=== PATIENT | female | born 1950 | race African-American/Black ===

== ENCOUNTER 2023-02-25 12:21 | Outpatient (REF) | payer MEDICARE, SELFPAY ==
--- NOTE | ~2023-02-25 | XR_ITS ---
EXAMINATION: XR LUMBOSACRAL SPINE CLINICAL INFORMATION: Lower back pain status-post injury. COMPARISON: None available. TECHNIQUE: AP and lateral views of the lumbar spine and lateral view of the lumbosacral junction. FINDINGS: There is bony demineralization. At L4-L5, there is a 5 mm anterolisthesis. The remaining disc spaces are well-maintained. No acute fracture or spondylolisthesis is seen. There is multi-level mild lumbar spondylosis. The posterior elements are intact. There are aortoiliac atherosclerotic calcifications. XR/XR lumbar spine 2-3V IMPRESSION: 1. There is mild to moderate degenerative disc disease at L4-L5. 2. There is multi-level mild lumbar spondylosis.
--- NOTE | ~2023-02-25 | XR_ITS ---
EXAMINATION: XR HIP, RIGHT CLINICAL INFORMATION: Pain. COMPARISON: None available. TECHNIQUE: AP and frog-leg lateral views of the right hip. FINDINGS: Bones and soft tissues are normal. No fracture. Alignment is anatomic. Hip joint space is maintained. XR/XR hip RT min 2V IMPRESSION: Normal right hip.
--- NOTE | ~2023-02-25 | XR_ITS ---
EXAMINATION: XR WRIST, LEFT CLINICAL INFORMATION: Pain status-post injury. COMPARISON: None available. TECHNIQUE: PA, lateral, and oblique views of the left wrist are submitted, together with a dedicated navicular view. FINDINGS: Bony alignment and mineralization are normal. There is mild osteoarthritic change of the first carpometacarpal joint. No fracture or dislocation is seen. The proximal and distal carpal rows are intact. No focal soft tissue swelling, gas or foreign body is seen. XR/XR wrist LT min 3V IMPRESSION: 1. No fracture or dislocation is seen. 2. There is mild osteoarthritic change of the left first carpometacarpal joint.
== END 2023-02-25 12:22 | disposition home or self-care (01) ==
LOC: HO.XRAY 12:21
PROVIDERS: Visit Provider Emergency Medicine
DX: S69.92XA Unspecified injury of left wrist, hand and finger(s), initial encounter (principal); S79.911A Unspecified injury of right hip, initial encounter; S39.92XA Unspecified injury of lower back, initial encounter
CPT/HCPCS: 72100; 73110; 73502

== ENCOUNTER 2023-07-07 10:13 | Outpatient (REF) | payer BC, MEDICARE, SELFPAY ==
[2023-07-08 01:45] LABS: Alanine Aminotransferase 14 U/L (0-31); Alkaline Phosphatase 94 U/L (39-117); Anion Gap 11 (12-20); Aspartate Amino Transferase 14 U/L (5-31); Bilirubin Total 0.7 mg/dL (0.0-1.0); Blood Urea Nitrogen 15 mg/dL (9-16); Calcium 9.4 mg/dL (8.4-10.2); Carbon Dioxide 27 mmol/L (22-29); Chloride 106 mmol/L (96-108); Estimated Glomerular Filt Rate > 60; Glucose Random 72 mg/dL (60-115); Potassium 3.4 mmol/L (3.3-5.1); Sodium 141 mmol/L (135-145); Total Protein 7.5 g/dL (6.5-8.0)
[2023-07-08 02:02] LABS: TSH reflex Free T4 16.74 uIU/mL (0.32-4.0)
[2023-07-08 03:53] LABS: Free T4 (Free Thyroxine) 0.98 ng/dL (0.71-1.85)
[2023-07-11 01:34] LABS: VITAMIN D (1,25 OH) D3 48 pg/mL; Vit D (1,25-Dihydroxy) Total 48 pg/mL (18-72); Vitamin D (1,25 OH) D2 <8 pg/mL
== END 2023-07-07 10:14 | disposition home or self-care (01) ==
LOC: HO.CHCLDS 10:13
PROVIDERS: Visit Provider Family Medicine
DX: E03.8 Other specified hypothyroidism (principal); E06.3 Autoimmune thyroiditis; R74.8 Abnormal levels of other serum enzymes; E66.9 Obesity, unspecified
CPT/HCPCS: 36415; 80053; 82652; 84439; 84443

== ENCOUNTER 2023-10-07 08:03 | Outpatient (REF) | payer BC, SELFPAY ==
--- NOTE | ~2023-10-07 | XR_ITS ---
EXAMINATION: XR BILATERAL KNEES CLINICAL INFORMATION: Bilateral knee pain. COMPARISON: None available. TECHNIQUE: 3 views each knee. FINDINGS: RIGHT KNEE: Tricompartmental degenerative changes are seen, most marked in the medial compartment which has the most narrowing. Posterior patellar osteophytes are seen. A small joint effusion is present. No chondrocalcinosis, fractures or subluxations. LEFT KNEE: Tricompartmental degenerative changes are seen, most marked in the medial compartment which has the most narrowing. Posterior patellar osteophytes are seen. A small joint effusion is present. No chondrocalcinosis, fractures or subluxations. XR/XR knee LT 3V IMPRESSION: Bilateral tricompartmental degenerative changes, most marked in the medial compartments.
--- NOTE | ~2023-10-07 | XR_ITS ---
EXAMINATION: XR BILATERAL KNEES CLINICAL INFORMATION: Bilateral knee pain. COMPARISON: None available. TECHNIQUE: 3 views each knee. FINDINGS: RIGHT KNEE: Tricompartmental degenerative changes are seen, most marked in the medial compartment which has the most narrowing. Posterior patellar osteophytes are seen. A small joint effusion is present. No chondrocalcinosis, fractures or subluxations. LEFT KNEE: Tricompartmental degenerative changes are seen, most marked in the medial compartment which has the most narrowing. Posterior patellar osteophytes are seen. A small joint effusion is present. No chondrocalcinosis, fractures or subluxations. XR/XR knee RT 3V IMPRESSION: Bilateral tricompartmental degenerative changes, most marked in the medial compartments.
== END 2023-10-07 08:04 | disposition home or self-care (01) ==
LOC: HO.HOSX 08:03
PROVIDERS: Visit Provider Orthopaedic Surgery
DX: M17.0 Bilateral primary osteoarthritis of knee (principal); Z79.899 Other long term (current) drug therapy
CPT/HCPCS: 73562

== ENCOUNTER 2023-10-07 14:46 | Outpatient (AMB) | payer BC, SELFPAY ==
--- NOTE | 2023-10-07 15:04 | MHC.OFFVIS ---
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 The patient describes her right knee pain as sharp and severe in nature, 10/10. Her pain has gotten worse over the last few years in spite of continued non operative treatments. She has done physical therapy for 12 weeks over the last 6 months which aggravated her pain. She has also tried Tylenol and anti-inflammatory medicines which gave her minimal relief. She has had multiple injections. The most recent injection gave her no relief. The patient has difficulty walking even short distances because of her pain. At this point her right knee pain is interfering with her activities of daily living and her ability to sleep well through the night. Allergies acetaminophen [Vicodin] Allergy (Unknown, Verified 10/07/23 15:07) Unknown codeine Allergy (Unknown, Verified 10/07/23 15:07) Unknown hydrocodone [Vicodin] Allergy (Unknown, Verified 10/07/23 15:07) Unknown erythromycin base Allergy (Verified 10/07/23 15:07) Hives Medication List - Last Reconciled 10/08/23 by Harshal Soares MD amlodipine 10 mg PO DAILY aspirin (Adult Aspirin Regimen) 81 mg PO DAILY celecoxib mg PO BID chlorthalidone 25 mg PO QAM citalopram 10 mg PO DAILY glimepiride 2 mg PO DAILY hydrochlorothiazide 25 mg PO DAILY irbesartan 300 mg PO BEDTIME levothyroxine 88 mcg PO DAILY pantoprazole 40 mg PO QAM rosuvastatin 40 mg PO DAILY [facility] Social History (Updated 10/07/23 @ 15:08 by ANNE-MARIE Eason) Patient Tobacco Use Status: Never used Tobacco Current occupational status: employed Current occupation: [employer] Physical Exam Vital Signs: BMI result Body Mass Index 36.3 Const Other: Well-nourished well-developed very friendly female awake alert and oriented x3 in no acute distress Extrem Other: Bilateral lower extremity examination shows good capillary refill, no skin lesions noted, normal sensation light touch Right knee examination shows a minimal effusion, palpable crepitus with range of motion, pain with range of motion, range of motion from -3 degrees to 115 degrees, no instability Results Reviewed Results Reviewed: X-rays of the patient's right knee show end-stage degenerative joint disease with grade 4 [id number] arthritis in the medial compartment, subchondral sclerosis, osteophyte formation, no acute bony abnormalities Assessment & Plan Assessment & Plan (1) Arthritis of right knee: Code(s): M17.11 - Unilateral primary osteoarthritis, right knee Plan Ms. Trevizo presents with progressively worsening bilateral knee pains, right greater than left, due to end-stage degenerative joint disease. I had a lengthy discussion with the patient regarding the treatment options. At this point she has failed continued non operative treatments. The risks and benefits of right total knee replacement surgery were discussed at length with the patient. Patient wishes to proceed with surgery. She will contact my office to pick a surgery date. I will see her back 1 week prior to her surgery to answer any final questions that she might have. Feel free to call me at any time should questions regarding her orthopedic management arise. Thank you very much for asking me to see this very friendly patient. I spent 22 minutes in reviewing the patient's records and imaging studies, seeing the patient and documenting in the medical record. Orders: Orders XR knee LT 3V 10/07/23 M25.562 - Pain in left knee XR knee RT 3V 10/07/23 M25.561 - Pain in right knee Coding Level of Care Code New Pt Level 2 (51342) Diagnoses Arthritis of right knee M17.11
[2023-10-07 15:06] VITALS: BMI 36.3
== END 2023-10-07 15:54 | disposition home or self-care (01) ==
PROVIDERS: PCP Nurse Practitioner Adult Health; Visit Provider Orthopaedic Surgery
DX: M17.11 Unilateral primary osteoarthritis, right knee (principal)
CPT/HCPCS: 99202

== ENCOUNTER 2023-10-10 10:29 | Outpatient (REF) | payer BC, SELFPAY ==
[2023-10-10 14:32] LABS: MANUAL DIFF FLAG NO
[2023-10-10 14:38] LABS: Basophils Percent Auto 0.5 % (0-2); Eosinophils Percent Auto 0.1 % (0-4); Hematocrit 42.3 % (37.0-47.0); Hemoglobin 13.7 g/dl (12.0-16.0); Imm Gran Abs Auto 0.02 X10*3/uL (0.00-0.03); Imm Gran Pct Auto 0.2 % (0.0-0.4); Lymphocytes Absolute Auto 2.3 X10*3/uL (1.2-4.9); Lymphocytes Percent Auto 26.2 % (20-40); Mean Corpuscular HGB Conc 32.4 g/dl (31.0-35.0); Mean Corpuscular Hemoglobin 27.7 pg (27.0-33.0); Mean Corpuscular Volume 85.5 fL (80.0-98.0); Monocytes Absolute Auto 0.7 X10*3/uL (0.1-1.2); Neutrophils Absolute Auto 5.7 x10*3/uL (2.0-8.3); Platelet Count 250 X10*3/uL (160-400); Red Blood Count 4.95 X10*6/uL (4.20-5.50); Red Cell Distribution Width 13.1 % (11.0-16.0); White Blood Count 8.8 X10*3/uL (4.8-10.8)
[2023-10-10 15:20] LABS: TSH reflex Free T4 7.86 uIU/mL (0.32-4.0)
[2023-10-10 15:22] LABS: Alanine Aminotransferase 24 U/L (0-31); Albumin Level 4.4 g/dL (3.5-5.0); Alkaline Phosphatase 107 U/L (39-117); Anion Gap 13 (12-20); Aspartate Amino Transferase 37 U/L (5-31); Bilirubin Total 0.9 mg/dL (0.0-1.0); Blood Urea Nitrogen 21 mg/dL (9-16); Calcium 10.6 mg/dL (8.4-10.2); Carbon Dioxide 34 mmol/L (22-29); Chloride 92 mmol/L (96-108); Estimated Glomerular Filt Rate 40; Glucose Random 115 mg/dL (60-115); Magnesium 2.2 mg/dL (1.6-2.6); Sodium 137 mmol/L (135-145); Total Protein 8.5 g/dL (6.5-8.0)
[2023-10-10 15:24] LABS: Potassium 2.3 mmol/L (3.3-5.1)
[2023-10-10 16:10] LABS: Free T4 (Free Thyroxine) 1.39 ng/dL (0.71-1.85)
== END 2023-10-10 10:30 | disposition home or self-care (01) ==
LOC: HO.CHCLDS 10:29
PROVIDERS: Visit Provider Family Medicine
DX: R23.2 Flushing (principal); R61 Generalized hyperhidrosis
CPT/HCPCS: 36415; 80053; 83735; 84439; 84443; 85025

== ENCOUNTER 2023-10-14 12:51 | Outpatient (REF) | payer BC, SELFPAY ==
[2023-10-14 15:19] LABS: Anion Gap 9 (12-20); Blood Urea Nitrogen 13 mg/dL (9-16); Calcium 10.1 mg/dL (8.4-10.2); Carbon Dioxide 34 mmol/L (22-29); Chloride 97 mmol/L (96-108); Estimated Glomerular Filt Rate 53; Glucose Random 128 mg/dL (60-115); Sodium 137 mmol/L (135-145)
== END 2023-10-14 12:52 | disposition home or self-care (01) ==
LOC: HO.CHCLDS 12:51
PROVIDERS: Visit Provider Family Medicine
DX: E87.6 Hypokalemia (principal)
CPT/HCPCS: 36415; 80048; 83735

== ENCOUNTER → 2023-10-20 11:00 | Outpatient (REF) | payer BC, SELFPAY ==
--- NOTE | 2023-10-20 11:03 | HM_ITS ---
* Total monitoring time 1 day. * Underlying rhythm is sinus. Average ventricular rate 64/Min. Range 45 to 109/Min. * Very rare supraventricular and ventricular ectopy. * No significant pauses or AV blocks. * No patient markers or events in diary. MTDD
== END ==
LOC: HO.CARD 11:00
PROVIDERS: PCP Family Medicine; Visit Provider Family Medicine
DX: R23.2 Flushing (principal); R61 Generalized hyperhidrosis; I49.3 Ventricular premature depolarization
CPT/HCPCS: 93225

== ENCOUNTER → 2023-10-20 11:03 | Outpatient (BNV) | payer BC, SELFPAY | PROVIDERS: PCP Family Medicine; Visit Provider Internal Medicine | DX: I47.10 Supraventricular tachycardia, unspecified (principal) | CPT/HCPCS: 93227 ==

== ENCOUNTER 2023-10-20 11:44 | Outpatient (REF) | payer BC, SELFPAY ==
[2023-10-20 14:32] LABS: Anion Gap 9 (12-20); Blood Urea Nitrogen 14 mg/dL (9-16); Calcium 10.1 mg/dL (8.4-10.2); Carbon Dioxide 30 mmol/L (22-29); Chloride 102 mmol/L (96-108); Estimated Glomerular Filt Rate > 60; Glucose Random 84 mg/dL (60-115); Potassium 3.2 mmol/L (3.3-5.1); Sodium 138 mmol/L (135-145)
== END 2023-10-20 11:45 | disposition home or self-care (01) ==
LOC: HO.CHCLDS 11:44
PROVIDERS: Visit Provider Family Medicine
DX: E87.6 Hypokalemia (principal)
CPT/HCPCS: 36415; 80048

== ENCOUNTER 2023-10-28 15:03 | Outpatient (REF) | payer BC, SELFPAY ==
[2023-10-28 17:28] LABS: Anion Gap 12 (12-20); Blood Urea Nitrogen 17 mg/dL (9-16); Calcium 9.6 mg/dL (8.4-10.2); Carbon Dioxide 24 mmol/L (22-29); Chloride 110 mmol/L (96-108); Estimated Glomerular Filt Rate > 60; Glucose Random 92 mg/dL (60-115); Potassium 3.6 mmol/L (3.3-5.1); Sodium 142 mmol/L (135-145)
== END 2023-10-28 15:04 | disposition home or self-care (01) ==
LOC: HO.CHCLDS 15:03
PROVIDERS: Visit Provider Family Medicine
DX: E87.6 Hypokalemia (principal)
CPT/HCPCS: 36415; 80048

== ENCOUNTER 2023-12-23 10:37 | Outpatient (AMB) | payer BC, SELFPAY ==
--- NOTE | 2023-12-23 10:56 | A.OFFVIS_ITS ---
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 Intake Note: NPV Collaborating Supervising Physician Required: No Allergies acetaminophen [Vicodin] Allergy (Unknown, Verified 12/23/23 10:58) Unknown codeine Allergy (Unknown, Verified 12/23/23 10:58) Unknown hydrocodone [Vicodin] Allergy (Unknown, Verified 12/23/23 10:58) Unknown erythromycin base Allergy (Verified 12/23/23 10:58) Hives Medication List - Last Reconciled 12/23/23 by Abraham Avila MD amlodipine 10 mg PO DAILY aspirin (Adult Aspirin Regimen) 81 mg PO DAILY celecoxib mg PO BID citalopram 10 mg PO DAILY glimepiride 2 mg PO DAILY hydrochlorothiazide 25 mg PO DAILY irbesartan 300 mg PO BEDTIME levothyroxine 88 mcg PO DAILY pantoprazole 40 mg PO QAM rosuvastatin 40 mg PO DAILY HPI HPI Comments History of Present Illness Details Autumn has been referred for evaluation of possibly regular rhythm. It seems that when her PCP auscultated her, thought to have irregular rhythm but nothing on the EKG. Patient herself does not have any symptoms from cardiac standpoint. No angina or shortness of breath or palpitations or anything along those lines. She does have diabetes and hypertension. However, denies any history of coronary artery disease or myocardial infarction or any cardiomyopathy. [facility] Medical History (Updated 12/23/23 @ 11:25 by Abraham Avila MD) Other and unspecified hyperlipidemia Essential hypertension Type 2 diabetes mellitus with unspecified complications Surgical History (Updated 12/23/23 @ 11:00 by Adilia Reed) Hx laparoscopic cholecystectomy Hx of appendectomy Family History (Updated 12/23/23 @ 10:59 by Adilia Reed) Mother CHF (congestive heart failure) Father No problems noted. Social History Patient Tobacco Use Status: Never used Tobacco Current occupational status: employed Current occupation: [employer] Const Denies chills, Denies daytime sleepiness, Denies fatigue, Denies fever(s), Denies frequent falls, Denies night sweats, Denies snoring, Denies weakness, Denies weight gain and Denies weight loss Eyes Denies loss of vision ENT Denies dizziness and Denies hearing loss Card Denies chest pain, Denies chest pain with activity, Denies syncope, Denies rapid heart rate, Denies edema, Denies claudication, Denies leg edema, Denies lightheadedness, Denies palpitations, Denies dyspnea, Denies dyspnea on exertion and Denies orthopnea Resp Denies cough, Denies excessive phlegm production, Denies dyspnea, Denies dyspnea on exertion, Denies snoring and Denies wheezing GI Denies abdominal pain, Denies hematochezia, Denies change in bowel habits, Denies change in stool character, Denies heartburn, Denies nausea and Denies vomiting Denies hematuria, Denies urinary frequency and Denies dysuria Musc Denies arthralgias, Denies muscle weakness, Denies numbness and Denies tingling Skin/Breast Denies nail changes and Denies rash Neuro Denies Abnormal speech present, Denies dizziness, Denies syncope, Denies frequent falls, Denies loss of vision, Denies memory loss, Denies numbness, Denies tingling and Denies weakness Psych Denies depression and Denies memory loss Endo Denies fatigue and Denies palpitations Aller/Immun Denies wheezing Physical Exam Vital Signs: Last Vital Signs Pulse 58 12/23/23 10:58 BP 148/76 H 12/23/23 10:58 BMI result Body Mass Index 33.3 Const General: comfortable and no acute distress Orientation/consciousness: patient oriented x3 HEENT Other: Unremarkable Head: Yes normal to inspection Neck Neck: Yes normal visual inspection Chest Chest palpation & inspection: normal inspection of the chest Resp Auscultation: clear to auscultation bilaterally Cardio Palpation: normal PMI Heart sounds: S1 normal heart sound present, S2 normal heart sound present, no gallops, no murmurs and no rubs GI Palpation (GI): Soft to palpation Back/Spine/Pelvis Other: unremarkable Skin General skin exam: no rashes or lesions noted Neuro General: patient oriented x3 Speech: No Abnormal speech present Extrem General: Yes normal to inspection Psych Mental Status: mental status grossly normal Office Procedures EKG Details: EKG with sinus bradycardia at 58/Min; inferior as well as lateral T inversions. Similar to recent PCP EKG [id number], Complete Assessment & Plan Assessment & Plan (1) Abnormal EKG: Code(s): R94.31 - Abnormal electrocardiogram [ECG] [EKG] (2) Type 2 diabetes mellitus with unspecified complications: Code(s): E11.8 - Type 2 diabetes mellitus with unspecified complications (3) Essential hypertension: Code(s): I10 - Essential (primary) hypertension (4) Other and unspecified hyperlipidemia: Code(s): E78.5 - Hyperlipidemia, unspecified Plan EKG findings could be related to hypertension, but cannot exclude ischemia. Considering her risk factors and EKG findings, we will proceed with further workup including echocardiogram and stress test. Based on findings, we can plan further care. Orders: Orders CA echo stress exercise Today R07.2 - Precordial pain, R94.31 - Abnormal electrocardiogram [ECG] [EKG] CA echo transthoracic complete Today I25.10 - Atherosclerotic heart disease of [place] coronary artery without angina pectoris, R94.31 - Abnormal electrocardiogram [ECG] [EKG] Coding Level of Care Code New Pt Level 4 (98740) Diagnoses Abnormal EKG R94.31 Type 2 diabetes mellitus with unspecified complications E11.8 Essential hypertension I10 Other and unspecified hyperlipidemia E78.5 CPT Codes EKG - CPT: [id number], Complete ([id number])
[2023-12-23 10:58] VITALS: BP 148/76; PULSE 58; BMI 33.3
== END 2023-12-23 11:24 | disposition home or self-care (01) ==
PROVIDERS: PCP Family Medicine; Visit Provider Internal Medicine
DX: I10 Essential (primary) hypertension (principal); R00.1 Bradycardia, unspecified; R94.31 Abnormal electrocardiogram [ECG] [EKG]; E11.8 Type 2 diabetes mellitus with unspecified complications; E78.5 Hyperlipidemia, unspecified
CPT/HCPCS: 93010; 99204

== ENCOUNTER → 2023-12-23 10:37 | Outpatient (BNVA) | payer BC, SELFPAY | PROVIDERS: PCP Family Medicine; Visit Provider Internal Medicine | DX: R94.31 Abnormal electrocardiogram [ECG] [EKG] (principal); I10 Essential (primary) hypertension; E78.5 Hyperlipidemia, unspecified; E11.8 Type 2 diabetes mellitus with unspecified complications | CPT/HCPCS: 93005 ==

== ENCOUNTER → 2023-12-29 09:05 | Outpatient (BNVA) | payer BC, SELFPAY | PROVIDERS: PCP Nurse Practitioner Adult Health; Visit Provider Orthopaedic Surgery ==

== ENCOUNTER 2024-01-05 10:47 | Outpatient (REF) | payer BC, SELFPAY ==
[2024-01-05 11:08] LABS: MANUAL DIFF FLAG NO
[2024-01-05 11:12] LABS: Basophils Absolute Auto 0.1 X10*3/uL (0.0-0.2); Basophils Percent Auto 0.7 % (0-2); Eosinophils Absolute Auto 0.1 X10*3/uL (0.0-0.4); Eosinophils Percent Auto 1.6 % (0-4); Hematocrit 42.2 % (37.0-47.0); Hemoglobin 13.8 g/dl (12.0-16.0); Imm Gran Abs Auto 0.02 X10*3/uL (0.00-0.03); Imm Gran Pct Auto 0.3 % (0.0-0.4); Lymphocytes Absolute Auto 2.5 X10*3/uL (1.2-4.9); Lymphocytes Percent Auto 35.8 % (20-40); Mean Corpuscular HGB Conc 32.7 g/dl (31.0-35.0); Mean Corpuscular Hemoglobin 27.8 pg (27.0-33.0); Mean Corpuscular Volume 84.9 fL (80.0-98.0); Mean Platelet Volume 10.3 fL (9.4-12.3); Monocytes Absolute Auto 0.5 X10*3/uL (0.1-1.2); Monocytes Percent Auto 6.6 % (2-11); Neutrophils Absolute Auto 3.8 x10*3/uL (2.0-8.3); Platelet Count 238 X10*3/uL (160-400); Red Blood Count 4.97 X10*6/uL (4.20-5.50); Red Cell Distribution Width 14.6 % (11.0-16.0); White Blood Count 6.9 X10*3/uL (4.8-10.8)
--- NOTE | 2024-01-05 11:12 | ECG_ITS ---
Test Reason : r07.2 preop Blood Pressure : / mmHG Vent. Rate : 058 BPM Atrial Rate : 058 BPM P-R Int : 160 ms QRS Dur : 088 ms QT Int : 418 ms P-R-T Axes : 042 025 013 degrees QTc Int : 410 ms Sinus bradycardia Nonspecific T wave abnormality Abnormal ECG No previous ECGs available Referred By: Noelle Sargent Electronically Signed By:Lonnie Rushing
[2024-01-05 11:21] LABS: Prothrombin Time 11.9 SEC (11.1-13.3)
[2024-01-05 12:55] LABS: Anion Gap 10 (12-20); Blood Urea Nitrogen 16 mg/dL (9-16); Calcium 10.1 mg/dL (8.4-10.2); Carbon Dioxide 28 mmol/L (22-29); Chloride 106 mmol/L (96-108); Estimated Glomerular Filt Rate > 60; Glucose Random 110 mg/dL (60-115); Potassium 3.6 mmol/L (3.3-5.1); Sodium 140 mmol/L (135-145)
== END 2024-01-05 10:48 | disposition home or self-care (01) ==
LOC: HO.LAB 10:47
PROVIDERS: PCP Family Medicine; Visit Provider Family Medicine
DX: Z01.810 Encounter for preprocedural cardiovascular examination (principal)
CPT/HCPCS: 36415; 80048; 83735; 85025; 85610; 93005

== ENCOUNTER → 2024-01-05 11:12 | Outpatient (BNV) | payer BC, SELFPAY | PROVIDERS: PCP Family Medicine; Visit Provider Internal Medicine Cardiovascular Disease | DX: R00.1 Bradycardia, unspecified (principal); R94.31 Abnormal electrocardiogram [ECG] [EKG] | CPT/HCPCS: 93010 ==

== ENCOUNTER → 2024-01-09 14:03 | Outpatient (REF) | payer BC, SELFPAY ==
--- NOTE | 2024-01-09 14:08 | CA_ITS ---
Transthoracic Echocardiogram Patient (Last, First, Middle): Autumn Trevizo, Gender: Female Date of : 1950 Age: 73 Procedure Date: 01/09/2024 Procedure Type: Transthoracic Echocardiogram Location: OP Height: 160.02 cm Weight: 88. kg BSA: 1.91 m2 Heart Rate: bpm BP: 128 / 80 mmHg Assembler Seat: Referring MD: Abraham Avila MD Symptoms: I25.10 - Atherosclerotic heart disease of [place] coronary artery without... Study Quality: Good ECG Rhythm: Sinus Conclusions: - Normal left ventricular size and systolic function. The visually estimated ejection fraction is between 55-60%. - E/E prime ratio is between 8 and 15 consistent with indeterminate filling pressures. Borderline LVH. - Normal right ventricular cavity size and systolic function. Findings Left Ventricle Normal left ventricular size and systolic function. The visually estimated ejection fraction is between 55-60%. There is no evidence of regional wall motion abnormalities. Diastolic function is indeterminate on the basis of available data. Spectral Doppler is indicative of an impaired relaxation filling pattern. E/E prime ratio is between 8 and 15 consistent with indeterminate filling pressures. Borderline LVH. Right Ventricle Normal right ventricular cavity size and systolic function. Atria The left atrium is mildly dilated. Aortic Valve There is a normal trileaflet aortic valve. There is mild aortic valve stenosis. There is no aortic valve regurgitation. Mitral Valve The mitral valve appears normal. There is trace mitral valve regurgitation. There is no mitral valve stenosis. Pulmonic Valve Normal pulmonic valve structure and function. There is no pulmonic valve regurgitation. Tricuspid Valve Normal tricuspid valve structure. There is trace tricuspid valve regurgitation. Normal right atrial pressure. There is no evidence of pulmonary hypertension. Great Vessels All visible segments of the aorta are normal in size. The visualized portions of the pulmonary artery and branches are normal. Pericardium/Pleural There is no evidence of pericardial effusion. Prior Study Comparison No prior study available for comparison. Measurements 2D Linear Measurements IVSd: 1.13 0.6-0.9/0.6-1.0 cm LVIDd: 4.38 3.9-5.3/4.2-5.9 cm LVIDd Index: 2.29 2.4-3.2/2.2-3.1 cm/m2 LVIDs: 2.51 2.0-3.6 cm LVPWd: 1.09 0.7-1.1 cm Ao Root: 2.70 2.1-3.5 cm LA Diam: 4.00 2.7-3.8/3.0-4.0 cm LAIDs Index: 2.09 1.5-2.3 cm/m2 LV Mass: 211.61 67-162/88-224 g LV Mass Index: 110.79 43-95/49-115 g/m2 LVOT Diam: 2.00 3.0+(-)1.3 cm 2D Systolic Function EF 4C: 63.50 >55% EF 2C: 70.20 >55% EF BiP: 66.90 >55% Mitral Valve MV Pk E: 0.76 MV PK A: 1.14 MV Decel Time: 215.00 E/A: 0.70 E'Lateral: 13.90 E'Medial: 6.31 E/E' Med: 12.10 E/E' Lat: 5.50 PHT: 63.00 MVA PHT: 3.49 Decel [place]: 3.55 Aortic Valve AoV Pk Gold: 2.15 AoV Mn Gold: 1.28 AoV VTI: 0.47 AoV Pk Grad: 18.00 Aov Mn Grad: 8.00 BARRY Cont.VTI: 1.90 LVOT LVOT Pk Gold: 1.04 LVOT Mn Gold: 0.61 LVOT VTI: 0.28 LVOT Pk Grad: 4.00 LVOT Mn Grad: 2.00 LVOT Diam: 2.00 LVOT Area: 3.14 Diastolic Function MV Pk E: 0.76 MV Pk A: 1.14 E/A: 0.70 E'Medial: 6.31 E/E' Med: 12.10 E' Laterial: 13.90 E/E' Lat: 5.50 Right Ventricle TAPSE (mm): 30.00 TVS' Gold: 16.00 Tricuspid Valve TR Pk Gold: 2.53 TR Pk Grad: 26.00 RA Press: 3.00 RVSP: 29.00 Great Vessels Aorta Ao Root-2D: 2.70 2.0-3.7 cm Ao Asc: 2.80 2.1-3.4 cm Pulmonary Valve PV Pk Gold: 1.06 Peak PV Grad: 4.00 Updated in Other Vendor System with Status of Final Lonnie Rushing MD electronically signed on 01/11/2024 1:58:00 PM with status of Final
== END ==
LOC: HO.CARD 14:03
PROVIDERS: PCP Family Medicine; Visit Provider Internal Medicine
DX: I25.10 Atherosclerotic heart disease of native coronary artery without angina pectoris (principal); R94.31 Abnormal electrocardiogram [ECG] [EKG]
CPT/HCPCS: 93306

== ENCOUNTER → 2024-01-09 14:08 | Outpatient (BNV) | payer BC, SELFPAY | PROVIDERS: PCP Family Medicine; Visit Provider Internal Medicine Cardiovascular Disease | DX: I25.10 Atherosclerotic heart disease of native coronary artery without angina pectoris (principal) | CPT/HCPCS: 93306 ==

== ENCOUNTER → 2024-01-14 11:02 | Outpatient (REF) | payer BC, SELFPAY ==
--- NOTE | 2024-01-14 11:04 | CA_ITS ---
Acquisition Time: 2024-01-14 11:00:36 Total Exercise Time: 00:05:00 Test Indications: ABN EKG, CP Medications: SEE H Protocol: IMER Max HR: 160 BPM 108% of Pred: 148 BPM Max BP: 174/078 mmHG Max Work Load: 7.0 METS Exercise stress test exercise 5 min achieving 109% MPHR *85% met by 1 min 40 sec), with mild to moderat SOB, no chest discomfort, with isolated PVCs, with normotensive response to exercise, without EKG changes. Echo images obtained by tech at rest and immedaitely post peak exercise. Definity contrast used .Test revierwed with Dr Matos Referred By: Abraham Avila Overread By: Katrin Leslie
== END ==
LOC: HO.CARD 11:02
PROVIDERS: PCP Family Medicine; Visit Provider Internal Medicine
DX: R07.2 Precordial pain (principal); R94.31 Abnormal electrocardiogram [ECG] [EKG]
CPT/HCPCS: 93350; Q9957

== ENCOUNTER → 2024-01-14 11:04 | Outpatient (BNV) | payer BC, SELFPAY | PROVIDERS: PCP Family Medicine; Visit Provider Nurse Practitioner | DX: R06.02 Shortness of breath (principal); R94.31 Abnormal electrocardiogram [ECG] [EKG] | CPT/HCPCS: 93016; 93018; 93350; 93352 ==

== ENCOUNTER 2024-01-21 12:29 | Outpatient (AMB) | payer BC, SELFPAY ==
--- NOTE | 2024-01-21 12:37 | A.OFFVIS_ITS ---
Intake Intake Visit Reasons: Preop-RT TKA 01/26/24 Intake Note: Autumn a 72 year old female presents today with complaints of bilateral knee pains, right greater than left. The patient describes her right knee pain as sharp and severe in nature, 10/10. Her pain has gotten worse over the last few years in spite of continued non operative treatments. She has done physical therapy for 12 weeks over the last 6 months which aggravated her pain. She has also tried Tylenol and anti-inflammatory medicines which gave her minimal relief. She has had multiple injections. The most recent injection gave her no relief. The patient has difficulty walking even short distances because of her pain. At this point her right knee pain is interfering with her activities of daily living and her ability to sleep well through the night. Allergies codeine Allergy (Intermediate, Verified 01/16/24 10:28) Hives erythromycin base Allergy (Intermediate, Verified 01/15/24 13:39) Hives hydrocodone [Vicodin] Allergy (Intermediate, Verified 01/16/24 10:28) Hives latex Allergy (Intermediate, Verified 01/16/24 10:28) dermatitis flare-ups Medication List - Last Reconciled 01/21/24 by Harshal Soares MD amlodipine 10 mg PO QAM aspirin (Adult Aspirin Regimen) 81 mg PO QAM celecoxib 200 mg PO BID citalopram 10 mg PO QAM glimepiride 2 mg PO QAM irbesartan 300 mg PO BEDTIME levothyroxine 100 mcg PO QAM pantoprazole 40 mg PO QAM rosuvastatin 40 mg PO QAM walker Folding front wheeled walker [facility] Medical History Arthritis Anxiety Family history of sickle cell crisis Low serum potassium Hypothyroid Other and unspecified hyperlipidemia Essential hypertension Type 2 diabetes mellitus with unspecified complications Surgical History Hx of oral surgery Hx of left cataract extraction H/O colonoscopy Hx laparoscopic cholecystectomy Hx of appendectomy Family History Mother CHF (congestive heart failure) Father No problems noted. Social History Are you a primary home health care case manager to a significant other at home: No Do you presently have visiting nurse or other home services: No Patient Tobacco Use Status: Never used Tobacco Current occupational status: employed Current occupation: [employer] Physical Exam Const Other: Well-nourished well-developed very friendly female awake alert and oriented x3 in no acute distress Extrem Other: Bilateral lower extremity examination shows good capillary refill, no skin lesions noted, normal sensation light touch Right knee examination shows a minimal effusion, palpable crepitus with range of motion, pain with range of motion, range of motion from -3 degrees to 115 degrees, no instability Results Reviewed Results Reviewed: X-rays of the patient's right knee show end-stage degenerative joint disease with grade 4 [id number] arthritis, subchondral sclerosis, osteophyte formation, no acute bony abnormalities Assessment & Plan Assessment & Plan (1) Arthritis of right knee: Code(s): M17.11 - Unilateral primary osteoarthritis, right knee Plan Ms. Trevizo presents with progressively worsening right knee pain due to end-stage degenerative joint disease. I had a lengthy discussion with the patient regarding the treatment options. At this point she has failed continued non operative treatments. The risks and benefits of right total knee replacement surgery were discussed at length with the patient. The patient wishes to proceed with surgery. volunteer services coordinator will be consulted following her surgery for home physical therapy and nursing. The patient will follow-up as instructed. Feel free to call me at any time should questions regarding her orthopedic management arise. I spent 22 minutes in reviewing the patient's records and imaging studies, seeing the patient and documenting in the medical record. Coding Level of Care Code Est Pt Level 2 (09937) Diagnoses Arthritis of right knee M17.11
== END 2024-01-21 13:02 | disposition home or self-care (01) ==
PROVIDERS: PCP Nurse Practitioner Adult Health; Visit Provider Orthopaedic Surgery
DX: M17.11 Unilateral primary osteoarthritis, right knee (principal)
CPT/HCPCS: 99024

== ENCOUNTER → 2024-01-21 12:29 | Outpatient (BNVA) | payer BC, SELFPAY | PROVIDERS: PCP Nurse Practitioner Adult Health; Visit Provider Orthopaedic Surgery ==

== ENCOUNTER 2024-01-21 13:08 | Outpatient (AMB) | payer BC, SELFPAY ==
[2024-01-21 13:34] VITALS: BP 130/70; PULSE 60; BMI 34.4
--- NOTE | 2024-01-21 13:34 | MHC.OFFVIS ---
Intake Vital Signs 01/21/24 13:34 Height 5 ft 4 in Weight 200 lb 9.93 oz BMI 34.4 BP 130/70 Blood Pressure Location Lt brachial Position Sitting Pulse 60 Pulse Source Pulse Oximeter Intake Visit Reasons: Pre-op/Rt TKA 01/25 Dr. Soares/Post echo, stress echo Intake Note: pt its lianet for a pre-op/post echo. stress echo. pt states that she its doing fine. Tool/Die Maker Required: No Accompanied by: Self / Same As Patient Allergies codeine Allergy (Intermediate, Verified 01/16/24 10:28) Hives erythromycin base Allergy (Intermediate, Verified 01/15/24 13:39) Hives hydrocodone [Vicodin] Allergy (Intermediate, Verified 01/16/24 10:28) Hives latex Allergy (Intermediate, Verified 01/16/24 10:28) dermatitis flare-ups Medication List - Last Reconciled 01/21/24 by Katrin Leslie NP amlodipine 10 mg PO QAM aspirin (Adult Aspirin Regimen) 81 mg PO QAM citalopram 10 mg PO QAM glimepiride 2 mg PO QAM irbesartan 300 mg PO BEDTIME levothyroxine 100 mcg PO QAM pantoprazole 40 mg PO QAM rosuvastatin 40 mg PO QAM walker Folding front wheeled walker [facility] Medical History Arthritis Anxiety Family history of sickle cell crisis Low serum potassium Hypothyroid Other and unspecified hyperlipidemia Essential hypertension Type 2 diabetes mellitus with unspecified complications Surgical History Hx of oral surgery Hx of left cataract extraction H/O colonoscopy Hx laparoscopic cholecystectomy Hx of appendectomy Family History Mother CHF (congestive heart failure) Father No problems noted. Social History Are you a primary human services care specialist to a significant other at home: No Do you presently have visiting nurse or other home services: No Patient Tobacco Use Status: Never used Tobacco Current occupational status: employed Current occupation: [employer] Review of Systems Const Denies chills, Denies fatigue, Denies fever(s), Denies frequent falls, Denies weakness, Denies weight gain and Denies weight loss ENT Denies dizziness Card Denies chest pain, Denies leg edema, Denies lightheadedness, Denies palpitations, Denies dyspnea and Denies dyspnea on exertion Resp Denies cough, Denies dyspnea and Denies dyspnea on exertion GI Denies hematochezia Musc Denies abnormal gait, Denies muscle weakness, Denies numbness, Denies radiating pain into limb and Denies tingling Neuro Denies abnormal gait, Denies dizziness, Denies frequent falls, Denies numbness, Denies tingling and Denies weakness Endo Denies fatigue and Denies palpitations Physical Exam Vital Signs: Last Vital Signs Pulse 60 01/21/24 13:34 BP 130/70 01/21/24 13:34 BMI result Body Mass Index 34.4 Assessment & Plan Assessment & Plan (1) Abnormal EKG: Code(s): R94.31 - Abnormal electrocardiogram [ECG] [EKG] (2) Essential hypertension: Code(s): I10 - Essential (primary) hypertension Plan EKG findings could be related to HTN disease. Echocardiogram showed borderline LVH, EF of 55-60%. Stress echo showed no evidence of ischemia, exercise induced diastolic dysfunction, or pulmonary hypertension. HTN is worked through the care of PCP. Good blood pressure control, exercise, weight loss, and heart healthy diet discussed to reduce production of LVH. Low cardiac risk for upcoming total knee arthroplasty. Coding Level of Care Code Est Pt Level 3 (31739) Diagnoses Abnormal EKG R94.31 Essential hypertension I10
== END 2024-01-21 14:05 | disposition home or self-care (01) ==
PROVIDERS: PCP Family Medicine; Visit Provider Nurse Practitioner
DX: R94.31 Abnormal electrocardiogram [ECG] [EKG] (principal); I10 Essential (primary) hypertension
CPT/HCPCS: 99213

== ENCOUNTER 2024-01-26 05:50 | Inpatient (IN) | payer BC, SELFPAY ==
[2024-01-16 10:33] VITALS: BP 142/60; PULSE 67; RESP 20; O2SAT 97; BMI 34.3
--- NOTE | 2024-01-16 10:47 | P.CONAN_ITS ---
Documented by User: Jessica Bryant NP 01/23/24 09:06 HPI - Anesthesia Eval Consult details Narrative: 73yo F for Right Knee Replacement Total Cardiac cleared: EKG findings could be related to HTN disease. Echocardiogram showed borderline LVH, EF of 55-60%. Stress echo showed no evidence of ischemia, exercise induced diastolic dysfunction, or pulmonary hypertension. HTN is worked through the care of PCP. Good blood pressure control, exercise, weight loss, and heart healthy diet discussed to reduce production of LVH. Low cardiac risk for upcoming total knee arthroplasty. PCP cleared No recent illness No CP/SOB Previously low K causing dizziness, weakness. HCTZ d/c'd, K normalized and symptoms resolved. Work up with cardiology OK. DM. FBS ~ 100 GERD. PPI controls PMFSH Active Problems Active Problems: All Active Problems (Updated 01/16/24 @ 10:24 by Peggy Medina RN) Abnormal EKG (Acute) Arthritis of right knee (Acute) Right knee pain (Acute) Left knee pain (Acute) Other and unspecified hyperlipidemia (Acute) Essential hypertension (Acute) Type 2 diabetes mellitus with unspecified complications (Acute) Past Medical History Medical History Arthritis Anxiety Family history of sickle cell crisis Low serum potassium Hypothyroid Other and unspecified hyperlipidemia Essential hypertension Type 2 diabetes mellitus with unspecified complications Family History Family History Mother CHF (congestive heart failure) Father No problems noted. Family history of problems with anesthesia: No Surgical History Surgical History Hx of oral surgery Hx of left cataract extraction H/O colonoscopy Hx laparoscopic cholecystectomy Hx of appendectomy History of Problems with Anesthesia: No Social History Social History Are you a primary healthcare account manager to a significant other at home: No Do you presently have visiting nurse or other home services: No Patient Tobacco Use Status: Never used Tobacco Use of substances other than those prescribed or required for medical reasons: No Have you been hit, kicked, punched, or otherwise hurt by someone within the past year? If so, by whom?: No Are you DNR?: No Advance Directives Information Provided: Yes (as above noted) Advance Directives on File: No Recently lost weight without trying: No Eating poorly because of decreased appetite: No Nutrition Risks: No Nutritional Risk Poor oral hygiene: No (multiple dental implants) Current occupational status: employed Current occupation: [employer] Allergies Allergy/AdvReac Type Severity Reaction Status Date / Time codeine Allergy Intermediate Hives Verified 01/16/24 10:28 erythromycin base Allergy Intermediate Hives Verified 01/15/24 13:39 hydrocodone [Vicodin] Allergy Intermediate Hives Verified 01/16/24 10:28 latex Allergy Intermediate dermatitis Verified 01/16/24 10:28 flare-ups Home Medications Medication Instructions Recorded Confirmed Last Taken Type amlodipine 10 mg tablet 10 mg PO QAM 10/07/23 01/21/24 01/26/24 History aspirin 81 mg tablet,delayed 81 mg PO QAM 10/07/23 01/21/24 12/28/23 History release (Adult Aspirin Regimen) citalopram 10 mg tablet 10 mg PO QAM 10/07/23 01/21/24 01/24/24 History glimepiride 2 mg tablet 2 mg PO QAM 10/07/23 01/21/24 01/24/24 History irbesartan 300 mg tablet 300 mg PO BEDTIME 10/07/23 01/21/24 01/24/24 History pantoprazole 40 mg tablet,delayed 40 mg PO QAM 10/07/23 01/21/24 01/26/24 History release rosuvastatin 40 mg tablet 40 mg PO QAM 10/07/23 01/21/24 01/24/24 History levothyroxine 100 mcg tablet 100 mcg PO QAM 01/15/24 01/21/24 01/24/24 History Exam Height,Weight and Vital Signs: Height 5 ft 4 in Weight 90.718 kg Last Vital Signs Pulse 67 01/16/24 10:33 Resp 20 01/16/24 10:33 BP 142/60 H 01/16/24 10:33 Pulse Ox 97 01/16/24 10:33 O2 Del Method Room Air 01/16/24 10:33 Pertinent Lab Results Pertinent Lab Results: Laboratory Tests 01/05/24 11:06 WBC 6.9 Hgb 13.8 Hct 42.2 Plt Count 238 Sodium 140 Potassium 3.6 Chloride 106 Carbon Dioxide 28 BUN 16 Creatinine 0.75 Narrative Narrative: EKG 12/2023 Vent. Rate : 058 BPM Atrial Rate : 058 BPM P-R Int : 160 ms QRS Dur : 088 ms QT Int : 418 ms P-R-T Axes : 042 025 013 degrees QTc Int : 410 ms Sinus bradycardia Nonspecific T wave abnormality Abnormal ECG No previous ECGs available ECHO 12/2023 Conclusions: - Normal left ventricular size and systolic function. The visually estimated ejection fraction is between 55-60%. - E/E prime ratio is between 8 and 15 consistent with indeterminate filling pressures. Borderline LVH. - Normal right ventricular cavity size and systolic function. Stress ECHO 12/2023 Conclusion : No evidence of myocardial ischemia with no evidence of exercise induced diastolic dysfunction or pulmonary hypertension. Airway Mallampati Class: III TM Dist: >3cm Neck ROM: Full Loose/Missing/Broken Teeth: Yes (Full dental implants uppper and lower) Heart: RRR Lungs: CTAB Assessment and Plan Assessment Anesthesia Assessment: Anesthesia Plan Discussed and PAT Visit Final Anesthetic Review Family History of Problems with Anesthesia: No History of Problems with Anesthesia: No Documented by User: Peace Dial MD 01/26/24 07:54 PMFSH Past Medical History Medical History Arthritis Anxiety Family history of sickle cell crisis Low serum potassium Hypothyroid Other and unspecified hyperlipidemia Essential hypertension Type 2 diabetes mellitus with unspecified complications Family History Family History Mother CHF (congestive heart failure) Father No problems noted. Surgical History Surgical History Hx of oral surgery Hx of left cataract extraction H/O colonoscopy Hx laparoscopic cholecystectomy Hx of appendectomy Social History Social History Are you a primary healthcare account manager to a significant other at home: No Do you presently have visiting nurse or other home services: No Patient Tobacco Use Status: Never used Tobacco Use of substances other than those prescribed or required for medical reasons: No Have you been hit, kicked, punched, or otherwise hurt by someone within the past year? If so, by whom?: No Are you DNR?: No Advance Directives Information Provided: Yes (as above noted) Advance Directives on File: No Recently lost weight without trying: No Eating poorly because of decreased appetite: No Nutrition Risks: No Nutritional Risk Poor oral hygiene: No (multiple dental implants) Current occupational status: employed Current occupation: [employer] Allergies Allergy/AdvReac Type Severity Reaction Status Date / Time codeine Allergy Intermediate Hives Verified 01/16/24 10:28 erythromycin base Allergy Intermediate Hives Verified 01/15/24 13:39 hydrocodone [Vicodin] Allergy Intermediate Hives Verified 01/16/24 10:28 latex Allergy Intermediate dermatitis Verified 01/16/24 10:28 flare-ups Home Medications Medication Instructions Recorded Confirmed Last Taken Type amlodipine 10 mg tablet 10 mg PO QAM 10/07/23 01/21/24 01/26/24 History aspirin 81 mg tablet,delayed 81 mg PO QAM 10/07/23 01/21/24 12/28/23 History release (Adult Aspirin Regimen) citalopram 10 mg tablet 10 mg PO QAM 10/07/23 01/21/24 01/24/24 History glimepiride 2 mg tablet 2 mg PO QAM 10/07/23 01/21/24 01/24/24 History irbesartan 300 mg tablet 300 mg PO BEDTIME 10/07/23 01/21/24 01/24/24 History pantoprazole 40 mg tablet,delayed 40 mg PO QAM 10/07/23 01/21/24 01/26/24 History release rosuvastatin 40 mg tablet 40 mg PO QAM 10/07/23 01/21/24 01/24/24 History levothyroxine 100 mcg tablet 100 mcg PO QAM 01/15/24 01/21/24 01/24/24 History Assessment and Plan Assessment Anesthesia Assessment: Chart Reviewed Final Anesthetic Review NPO: Yes ASA Class: II Final Preanesthetic Review: No Changes in Pt Med Stat, Meds/Allgs Chart Reviewed, Consent Obtained/Reviewed and Anes Risks/Benef Reviewed Patient Risk: Intermediate Procedure Risk: Intermediate Anesthetic Plan Anesthetic Plan: MAC:, Spinal and Regional Block Disposition: Standard PACU
[2024-01-16 13:27] LABS: MRSA Nasal PCR NEGATIVE (Negative); SA Nasal PCR NEGATIVE (Negative)
[2024-01-26] VITALS (16 sets, daily range): BP systolic 137–170; BP diastolic 64–81; PULSE 63–80; RESP 14–19; TEMP 36–36.6; O2SAT 90–99; BMI 34.4
[2024-01-26 07:18] LABS: Glucose, Whole Blood 145 mg/dL (60-115)
[2024-01-26] MEDS: Lactated Ringers 1,000 ML 100 ML IVCONT ×2 (07:33→17:14)
--- NOTE | 2024-01-26 08:45 | PC.NURSE ---
patient tolerated nerve block well resting vss resp easy and regular sleeping easily arousable
[2024-01-26] MEDS: ceFAZolin Sodium/Dextrose,Iso 2 GM/50 ML PIGGYBACK IV ×2 (09:36→18:14)
[2024-01-26] MEDS: Acetaminophen 1,000 MG/100 ML PIGGYBACK 400 MG IV (09:50)
--- NOTE | 2024-01-26 10:41 | PHA.MEDREC ---
Pharmacy Consult ? Medication Reconciliation Pharmacy has completed the medication reconciliation. Reviewed med rec done by nursing
--- NOTE | 2024-01-26 12:13 | PM.OP ---
Brief Operative Note Date of Service: 01/26/24 Pre-op diagnosis: Right knee degenerative joint disease Post-op diagnosis: same Procedure: Right total knee arthroplasty Implants: [place] [employer] cemented posterior stabilized total knee arthroplasty with a femoral component size 4 right, tibial component size 3, polyethylene liner size 3 with 10 mm of thickness, an asymmetric patellar component size 29 with 9 mm of thickness Surgeon: Harshal Soares MD Anesthesia: regional and spinal Was an Senior Accounting Clerk used for this Procedure?: Yes Senior Accounting Clerk: Alysa Bailey Estimated blood loss (mL): 200 Pathology: other (Bony fragments from the right femur, tibia and patella) Condition: stable Disposition: PACU
--- NOTE | 2024-01-26 12:14 | P.OP_ITS ---
Operative Note Operative Note Date of Service: 01/26/24 Narrative: After the patient was identified as Autumn Trevizo and her right knee was initialed by myself the patient was brought to the holding area where a right leg nerve block was performed by the anesthesiologist in routine fashion. The patient was then brought to the operating room where conscious sedation and spinal anesthesia were performed by the anesthesiologist in routine fashion. The patient was given 2 g of IV Ancef preoperatively for infection prophylaxis. The patient's right lower extremity was prepped and draped in sterile fashion. A formal time-out was completed. The patient's right knee was placed onto a small bump to produce 30? of knee flexion during exposure. A #10 scalpel blade was used to make a midline incision extending 1 handbreadth proximal and distal to the patella. A second #10 scalpel blade was used to dissect the subcutaneous tissues down to the extensor mechanism. The subcutaneous flaps were maintained as thick as possible. A medial parapatellar arthrotomy was then performed using a #10 scalpel blade. The arthrotomy was begun just medial to the patellar tendon. The arthrotomy was continued 1 cm medial to the patella and then 5 mm into the medial aspect of the quadriceps tendon. The infrapatellar fat pad was partially excised to help with exposure. The soft tissue retinaculum was raised one-half of the way around the medial aspect of the proximal tibia. The patella was everted and the knee was flexed to 90?. There was no injury to the patellar tendon or its insertion onto the tibial tubercle. A drill bit was introduced into the distal aspect of the femur with a starting point 1 cm anterior to the origin of the posterior cruciate ligament. The intramedullary alignment zohra was put into place. The distal alignment guide was set for a 5 degree valgus cut. The distal cutting block was put into place and was held with 4 pins. The intramedullary alignment zohra was removed. Soft tissues were retracted in the distal femoral cut was made using a sagittal saw. The distal aspect of the femur measured to be a size 4 right component. Two drill holes were placed into the distal aspect of the femur marking 3? of external rotation. The distal cutting block was impacted into place and was held with 2 pins. Soft tissues were retracted and the 4 distal femoral cuts were made using a sagittal saw. Final notching and drilling of the distal aspect of the femur were performed in routine fashion. The trial femoral component was impacted into place. The knee was taken through a full range of motion. The patella tracked well. The patella was everted and the knee was flexed to 90?. The trial component was removed and our attention was directed to the proximal tibia. The medial and lateral menisci were removed using a #10 scalpel blade. A small rim of the medial meniscus was left intact to help prevent injury to the medial collateral ligament. A drill bit was then introduced into the proximal tibia with a starting point midway from medial to lateral and one-third of the way posteriorly. The intramedullary alignment zohra was put into place. The proximal tibial cutting guide was placed over the alignment zohra in line with the 2nd toe. The guide was held in place using 3 pins. The intramedullary alignment zohra was removed. Soft tissues were retracted and the proximal tibial cut was made using a sagittal saw. The proximal tibia measured to be a size 3 component. The tibial tray was put into place with a 10 mm liner. The femoral component was impacted into place. The knee was taken through a full range of motion. There was full flexion and full extension. There was no instability with varus or valgus stress testing with the knee in flexion or extension. The patella tracked well with no medially directed force. The rotation of the tibial tray was marked using electrocautery with the knee in extension. The patella was everted and the knee was flexed to 90?. All trial components were removed. The tibial tray was placed onto the proximal tibia in line with the electrocautery raf. The tray was held in place using 3 pins. Final broaching of the proximal tibia was performed in routine fashion. The trial liner and trial femoral component were put into place. The knee was brought into extension and our attention was directed to the patella. The patella measured 25 mm in thickness. The patellar resection guide was set for a 10 mm resection. Soft tissues were retracted and the patella cut was made using a sagittal saw. The remaining patella measured 15 mm in thickness. The undersurface of the patella was measu red to be a size 29 asymmetric component. Three drill holes were placed into the undersurface of the patella in routine fashion. The trial component was put into place. The knee was taken through a full range of motion. The patella tracked well. The patella was everted and the knee was flexed to 90?. All trial components were removed. The knee was once again brought into extension and placed onto a small bump. The knee joint was irrigated with copious amounts of normal saline solution via pulse lavage while the cement was mixed. The patella was everted and the knee was flexed to 90?. A small amount of cement was placed along the posterior aspects of the tibial and femoral components. Cement was then pressurized into the proximal tibia. The tibial component was impacted into place. Any excess cement was removed. The polyethylene liner was then impacted into place. Cement was then pressurized into the distal aspect of the femur. A small amount of cement was placed into the intramedullary canal to help reduce bleeding. The femoral component was impacted into place. Any excess cement was removed. The knee was then brought into extension. Cement was pressurized into the undersurface of the patella. The patellar component was put into place and was held with a patella clamp. Any excess cement was removed. Once the cement had hardened the patellar clamp was removed. The knee was taken through a full range of motion. There was full flexion and extension. There was no instability with varus or valgus stress testing with the knee in flexion or extension. The patella tracked well with no medially directed force. The knee joint was irrigated with copious amounts of normal saline solution via pulse lavage. Any significant bleeding vessels were coagulated. The patient's right knee was placed onto a small bump. The arthrotomy was closed with #2 Ethibond [id number] interrupted suture as well as #1 Vicryl [id number] interrupted suture. The wound was once again irrigated. The subcutaneous tissues were closed with 0 Vicryl and 2-0 Vicryl interrupted sutures. The skin was closed with skin saundra. Dry sterile dressing and Spencer bandages were placed over the patient's right knee. The patient was awake and alert. The patient was transferred to the recovery room in stable condition.
--- NOTE | 2024-01-26 12:39 | PHA.MEDREC ---
Pharmacy Consult ? Medication Reconciliation Pharmacy has reviewed the medication reconciliation.
[2024-01-26] MEDS: ondansetron HCL 4 MG/2 ML VIAL IVPUSH (14:49)
[2024-01-26] MEDS: HYDROmorphone HCl 0.5 MG/0.5 ML SYRINGE IVPUSH (14:57)
[2024-01-26] MEDS: methocarbamoL 500 MG TABLET PO (15:03)
[2024-01-26] MEDS: amLODIPine Besylate 10 MG TABLET PO (17:12)
[2024-01-26] MEDS: oxyCODONE HCl Immed Release 5 MG TABLET PO (17:13)
--- NOTE | 2024-01-26 17:39 | P.CONHOSP_ITS ---
History of Present Illness Data of Consult Service Date: 01/26/24 Requesting physician: Alysa Bailey Primary Care Provider: Noelle Sargent MD HPI Reason for consult: Medical H and P 73-year-old female with history of controlled type 2 diabetes, hypertension, hypothyroidism, GERD, mood disorder admitted to orthopedic surgery for management of osteoarthritis of the right knee s/p TKA with consult placed hospitalist service for medical management. She reports last hemoglobin A1c was less than 7.0%. She denies any alcohol use, illicit drug use, or cigarette smoking. She has no complaints at this time. Reports pain is well-controlled at this moment. Review of Systems Review of Systems: General: No fevers, malaise, unintentional weight loss HEENT: No blurred vision, diplopia. No sore throat, nasal congestion, rhinorrhea, sinus pain, ear pain Cardiovascular: No chest pain, palpitations, or leg edema Respiratory: No shortness of breath, wheezing, cough GI: No abdominal pain, nausea, vomiting, diarrhea, constipation, melena, hematochezia : No dysuria, hematuria, increased urinary frequency, decreased urinary output MSK: No myalgia, back pain Neuro: No headaches, weakness, paresthesias Skin: No rashes or lesions PMFSH Medical History Arthritis Anxiety Family history of sickle cell crisis Low serum potassium Hypothyroid Other and unspecified hyperlipidemia Essential hypertension Type 2 diabetes mellitus with unspecified complications Family History Mother CHF (congestive heart failure) Father No problems noted. Surgical History Hx of oral surgery Hx of left cataract extraction H/O colonoscopy Hx laparoscopic cholecystectomy Hx of appendectomy Social History Are you a primary home care associate to a significant other at home: No Do you presently have visiting nurse or other home services: No Patient Tobacco Use Status: Never used Tobacco Use of substances other than those prescribed or required for medical reasons: No Have you been hit, kicked, punched, or otherwise hurt by someone within the past year? If so, by whom?: No Are you DNR?: No Advance Directives Information Provided: Yes (as above noted) Advance Directives on File: No Recently lost weight without trying: No Eating poorly because of decreased appetite: No Nutrition Risks: No Nutritional Risk Poor oral hygiene: No (multiple dental implants) Current occupational status: employed Current occupation: [employer] Allergies Allergy/AdvReac Type Severity Reaction Status Date / Time codeine Allergy Intermediate Hives Verified 01/16/24 10:28 erythromycin base Allergy Intermediate Hives Verified 01/15/24 13:39 hydrocodone [Vicodin] Allergy Intermediate Hives Verified 01/16/24 10:28 latex Allergy Intermediate dermatitis Verified 01/16/24 10:28 flare-ups Active Medications: Current Medications Acetaminophen (Acetaminophen 325 Mg Tablet) 650 mg PO Q6H PRN PRN Reason: Pain, Mild (Pain Scale 1-3) Amlodipine Besylate (Amlodipine Besylate 10 Mg Tablet) 10 mg PO DAILY [facility]; Protocol Last Admin: 01/26/24 17:12 Dose: 10 mg Aspirin (Aspirin 325 Mg Tablet) 325 mg PO BID [facility] Atorvastatin Calcium (Atorvastatin Calcium 80 Mg Tablet) 80 mg PO DAILY [facility] Celecoxib (Celecoxib 200 Mg Capsule) 200 mg PO BID [facility] Docusate Sodium (Docusate Sodium 100 Mg Capsule) 100 mg PO BID [facility] Escitalopram Oxalate (Escitalopram Oxalate 5 Mg Tablet) 5 mg PO DAILY [facility] Gabapentin (Gabapentin 100 Mg Capsule) 100 mg PO BEDTIME [facility] Glipizide (Glipizide 5 Mg Tablet) 5 mg PO DAILY [facility] Hydromorphone HCl (Hydromorphone Hcl 0.5 Mg/0.5 Ml Syringe) 0.25 mg IVPUSH Q4H PRN; Protocol PRN Reason: Pain, Severe (Pain Scale 7-10) Hydromorphone HCl (Hydromorphone Hcl 0.5 Mg/0.5 Ml Syringe) 0.5 mg IVPUSH Q4H PRN; Protocol PRN Reason: Pain, Severe (Pain Scale 7-10) Last Admin: 01/26/24 14:57 Dose: 0.5 mg Lactated Ringer's (Lr) 1,000 mls @ 100 mls/hr IVCONT .Q10H [facility] Last Admin: 01/26/24 17:14 Dose: 100 mls/hr Cefazolin Sodium/Dextrose (Ancef) 2 gm in 50 mls @ 100 mls/hr IV Q8H [facility] Stop: 01/27/24 01:59 Lactated Ringer's (Lr) 1,000 mls @ 100 mls/hr IVCONT .Q10H [facility] Last Admin: 01/26/24 17:19 Dose: Not Given Levothyroxine Sodium (Levothyroxine Sodium 100 Mcg Tablet) 100 mcg PO DAILY [facility] Methocarbamol (Methocarbamol 500 Mg Tablet) 500 mg PO TID [facility] Last Admin: 01/26/24 17:22 Dose: Not Given Omeprazole (Omeprazole 20 Mg Capsule.Dr) 20 mg PO DAILY [facility] Ondansetron HCl (Ondansetron Hcl 4 Mg/2 Ml Vial) 4 mg IVPUSH Q8H PRN PRN Reason: Nausea and Vomiting Oxycodone HCl (Oxycodone Hcl Immed Release 5 Mg Tablet) 5 mg PO Q4H PRN PRN Reason: Pain, Moderate(Pain Scale 4-6) Last Admin: 01/26/24 17:13 Dose: 5 mg Oxycodone HCl (Oxycodone Hcl Immed Release 5 Mg Tablet) 10 mg PO Q4H PRN PRN Reason: Pain, Moderate(Pain Scale 4-6) Oxycodone HCl (Oxycodone Hcl Er 10 Mg Tab.Er.12h) 10 mg PO BID [facility] Sodium Chloride (0.9 % Sodium Chloride Flush 3 Ml Syringe) 3 ml IVFLUSH QSHIFT [facility] Valsartan (Valsartan 160 Mg Tablet) 160 mg PO BEDTIME [facility] Home Medications Medication Instructions Recorded Confirmed Last Taken Type amlodipine 10 mg tablet 10 mg PO DAILY 10/07/23 01/26/24 01/26/24 History aspirin 81 mg tablet,delayed 81 mg PO DAILY 10/07/23 01/26/24 12/28/23 History release (Adult Aspirin Regimen) citalopram 10 mg tablet 10 mg PO DAILY 10/07/23 01/26/24 01/24/24 History glimepiride 2 mg tablet 2 mg PO DAILY 10/07/23 01/26/24 01/24/24 History irbesartan 300 mg tablet 300 mg PO BEDTIME 10/07/23 01/21/24 01/24/24 History pantoprazole 40 mg tablet,delayed 40 mg PO DAILY@0630 11/01/26/24 01/26/24 History release rosuvastatin 40 mg tablet 40 mg PO DAILY 10/07/23 01/26/24 01/24/24 History levothyroxine 100 mcg tablet 100 mcg PO DAILY@0600 01/15/24 01/26/24 01/24/24 History Physical Exam Vital Signs and Narrative: Vital Signs: Last Vital Signs Temp 97.8 F 01/26/24 16:49 Pulse 78 01/26/24 16:49 Resp 18 01/26/24 16:49 BP 170/77 H 01/26/24 16:49 Pulse Ox 94 01/26/24 16:49 O2 Del Method Room Air 01/26/24 16:49 O2 Flow Rate 2 01/26/24 16:00 BMI result Body Mass Index 34.3 Constitutional - Awake and Alert, No apparent distress Eyes - PERRLA, EOMI Cardiovascular - S1S2, RRR, No edema Respiratory - Normal lung expansion, Normal respiratory effort, No respiratory distress, CTA bilaterally Gastrointestinal - NT / ND; +BS; No rebound or guarding Extremities - no calf tenderness bilaterally, no swelling Skin - Warm/Dry Neurological - Alert & oriented x3 Psychological - Appropriate affect Results Labs Labs: Laboratory Results - last 24 hr 01/26/24 07:10 POC Glucose 145 H Assessment and Plan (1) Arthritis of right knee: Status: Acute Plan 73-year-old female with history of controlled type 2 diabetes, hypertension, hypothyroidism, GERD, mood disorder admitted to orthopedic surgery for management of osteoarthritis of the right knee s/p TKA with consult placed hospitalist service for medical management. #OA R Knee s/p R TKA -plan per ortho surgery #Non insulin dependent type 2 diabetes- controlled -poc glucose, diabetic diet -humalog on ss #HTN -bp elevated from pain, improved on exam -resume antihypertensives am #Hypthyroidism -continue synthroid #GERD -continue ppi Thank you for allowing me to participate in this consult. Signing off at this time. Please do not hesitate to call for further questions.
[2024-01-26 17:50] LABS: Glucose, Whole Blood 204 mg/dL (60-115)
[2024-01-26] MEDS: Aspirin 325 MG TABLET PO (19:02)
[2024-01-26 20:16] LABS: Glucose, Whole Blood 216 mg/dL (60-115)
[2024-01-26] MEDS: Docusate Sodium 100 MG CAPSULE PO (22:00)
[2024-01-26] MEDS: Gabapentin 100 MG CAPSULE PO (22:01)
[2024-01-26] MEDS: Celecoxib 200 MG CAPSULE PO (22:01)
[2024-01-26] MEDS: Valsartan 160 MG TABLET PO (22:04)
[2024-01-27] MEDS: ceFAZolin Sodium/Dextrose,Iso 2 GM/50 ML PIGGYBACK IV (02:03)
[2024-01-27] MEDS: Lactated Ringers 1,000 ML 100 ML IVCONT (02:06)
[2024-01-27 03:51] VITALS: BP 131/63; PULSE 62; RESP 18; TEMP 36; O2SAT 96
[2024-01-27 06:16] LABS: MANUAL DIFF FLAG NO
[2024-01-27 06:31] LABS: Basophils Percent Auto 0.1 % (0-2); Hematocrit 32.6 % (37.0-47.0); Hemoglobin 10.6 g/dl (12.0-16.0); Imm Gran Abs Auto 0.08 X10*3/uL (0.00-0.03); Imm Gran Pct Auto 0.6 % (0.0-0.4); Lymphocytes Absolute Auto 1.5 X10*3/uL (1.2-4.9); Lymphocytes Percent Auto 11.2 % (20-40); Mean Corpuscular HGB Conc 32.5 g/dl (31.0-35.0); Mean Corpuscular Hemoglobin 27.7 pg (27.0-33.0); Mean Corpuscular Volume 85.3 fL (80.0-98.0); Mean Platelet Volume 11.1 fL (9.4-12.3); Monocytes Percent Auto 7.7 % (2-11); Neutrophils Absolute Auto 10.7 x10*3/uL (2.0-8.3); Neutrophils Percent Auto 80.4 % (45-73); Platelet Count 215 X10*3/uL (160-400); Red Blood Count 3.82 X10*6/uL (4.20-5.50); Red Cell Distribution Width 14.2 % (11.0-16.0); White Blood Count 13.3 X10*3/uL (4.8-10.8)
[2024-01-27 06:42] LABS: Anion Gap 9 (12-20); Blood Urea Nitrogen 13 mg/dL (9-16); Calcium 9.1 mg/dL (8.4-10.2); Carbon Dioxide 28 mmol/L (22-29); Chloride 105 mmol/L (96-108); Creatinine Clr Calc Pharmacy 67.7; Estimated Glomerular Filt Rate > 60; Glucose Fasting 163 mg/dL (60-99); Potassium 3.3 mmol/L (3.3-5.1); Sodium 139 mmol/L (135-145)
[2024-01-27 07:47] VITALS: BP 150/72; PULSE 61; RESP 18; TEMP 36.1; O2SAT 100
[2024-01-27 08:15] LABS: Glucose, Whole Blood 149 mg/dL (60-115)
[2024-01-27] MEDS: Acetaminophen 325 MG TABLET 650 MG PO (08:26)
[2024-01-27] MEDS: Aspirin 325 MG TABLET PO (08:27)
[2024-01-27] MEDS: amLODIPine Besylate 10 MG TABLET PO (08:27)
[2024-01-27] MEDS: methocarbamoL 500 MG TABLET PO (08:27)
[2024-01-27] MEDS: Celecoxib 200 MG CAPSULE PO (08:27)
[2024-01-27] MEDS: Escitalopram Oxalate 5 MG TABLET PO (08:27)
[2024-01-27] MEDS: Omeprazole 20 MG CAPSULE.DR PO (08:27)
[2024-01-27] MEDS: glipiZIDE 5 MG TABLET PO (08:27)
[2024-01-27] MEDS: Levothyroxine Sodium 100 MCG TABLET PO (08:28)
[2024-01-27] MEDS: Atorvastatin Calcium 80 MG TABLET PO (08:28)
[2024-01-27] MEDS: 0.9 % Sodium Chloride Flush 3 ML SYRINGE IVFLUSH (08:28)
[2024-01-27] MEDS: Docusate Sodium 100 MG CAPSULE PO (08:28)
--- NOTE | 2024-01-27 08:55 | MHC.CM.PN ---
Addendum entered by Brooklyn Rojo RN 01/27/24 09:43: Patient medically cleared for dc home self care. at bedside to transport. Original Note: PATIENT IS FROM HOME W/ . FUNCTIONALLY INDEPENDENT. NO SERVICES. DM SUPPLIES THROUGH [employer]. PCP BHARAT BOO HCP - PT COMPLETED HCP NAMING AGENTS 1) MICHELLE ALCALA [phone] 2) DTR ELIZABETH KUMAR [phone] DP: PT EVAL PENDING. GOAL IS HOME W/ SERVICES. PREFERRED AGENCY IS [facility]. REFERRAL ENTERED, AWAITING RESPONSE. TO TRANSPORT HOME. CM WILL CONTINUE TO FOLLOW.
--- NOTE | 2024-01-27 09:00 | P.DS_ITS ---
DS: Providers Provider Date of Service: 01/27/24 Date of admission: 01/26/24 05:50 Primary care physician: Noelle Sargent MD Consults: 01/26/24 16:26 Consult to Hospitalist Routine Comment: Consulting Provider: Hospitalist Reason For Exam: Routine medical management DMII DS: Diagnosis Discharge Diagnosis (1) Arthritis of right knee: Status: Acute DS: Summary Hospital Course Hospital Course: The patient underwent a successful right total knee arthroplasty, they were transferred to PACU and then to the floor to recover. During their stay, their vitals were stable, afebrile at 97.0. Labs were unremarkable, H/H 10.6/32.6. POD 1 they were started on Aspirin 325mg po bid for DVT ppx, they also received Physical Therapy services. Prior to discharge, their dressing was clean dry and intact, and the plan was to be discharged home with VNA services. Time Attestation Discharge Coordination Time: discharge time of ____ minutes Quality: Safe Use of Opioids Does Pt have an Active Cancer Diagnosis on the Problem List?: No Quality: Stroke Does the patient have a stroke diagnosis?: No Physical Exam Vital Signs: Vital Signs: Last Vital Signs Temp 97 F 01/27/24 07:47 Pulse 61 01/27/24 07:47 Resp 18 01/27/24 07:47 BP 150/72 H 01/27/24 07:47 Pulse Ox 100 01/27/24 07:47 O2 Del Method Room Air 01/27/24 07:47 O2 Flow Rate 2 01/26/24 16:00 BMI result Body Mass Index 34.4 Const: General: cooperative, healthy appearing and no acute distress Resp: Effort & Inspection: normal respiratory effort and able to speak in complete sentences Cardio: Rate: regular rate Peripheral pulses: Peripheral pulses 2+ throughout GI: Palpation (GI): Soft to palpation Skin: Lesions: no lesions Rashes: no rashes Extrem: Other: right knee dressing is c/d/i. Able to dorsi/plantar flex. Calf is supple and nontender. Sensation intact. Pedal pulse intact. DS: Data Data Completed and Pending Pending studies at discharge: Pending at discharge 01/26/24 10:16 Surgical [PTH] Routine Labs on day of discharge: Laboratory Results - last 24 hr 01/26/24 01/26/24 01/27/24 16:51 20:12 05:37 WBC 13.3 H RBC 3.82 L D Hgb 10.6 L D Hct 32.6 L D MCV 85.3 MCH 27.7 MCHC 32.5 RDW 14.2 Plt Count 215 MPV 11.1 Immature Gran % (Auto) 0.6 H Neut % (Auto) 80.4 H Lymph % (Auto) 11.2 L [place] % (Auto) 7.7 Eos % (Auto) 0.0 Baso % (Auto) 0.1 Lymph # (Auto) 1.5 [place] # (Auto) 1.0 Eos # (Auto) 0.0 Baso # (Auto) 0.0 Abs Immat Gran (auto) 0.08 H Absolute Neuts (auto) 10.7 H Absolute Nucleated RBC 0.000 Nucleated RBC % (auto) 0.0 Sodium 139 Potassium 3.3 Chloride 105 Carbon Dioxide 28 Anion Gap 9 L BUN 13 Creatinine 0.82 Estim Creat Clear Calc 67.7 Estimated GFR > 60 POC Glucose 204 H 216 H Fasting Glucose 163 H Calcium 9.1 D 01/27/24 08:09 WBC RBC Hgb Hct MCV MCH MCHC RDW Plt Count MPV Immature Gran % (Auto) Neut % (Auto) Lymph % (Auto) [place] % (Auto) Eos % (Auto) Baso % (Auto) Lymph # (Auto) [place] # (Auto) Eos # (Auto) Baso # (Auto) Abs Immat Gran (auto) Absolute Neuts (auto) Absolute Nucleated RBC Nucleated RBC % (auto) Sodium Potassium Chloride Carbon Dioxide Anion Gap BUN Creatinine Estim Creat Clear Calc Estimated GFR POC Glucose 149 H Fasting Glucose Calcium Discharge Plan Discharge Anticipated Discharge Date/Time: 01/27/24 15:55 Patient Disposition: Home Health Service Discharge Diagnosis: s/p RTKA Referrals: Alysa Bailey PA-C [[facility] [employer]] - 02/12/24 1:15 pm Discharge Medications: New methocarbamol 500 mg Tablet 500 mg PO TID 7 Days Qty: 21 0RF acetaminophen 325 mg Tablet 650 mg PO Q6H PRN (Reason: Pain, Mild (Pain Scale 1-3)) 30 Days Qty: 240 0RF aspirin 325 mg Tablet 325 mg PO BID 42 Days Qty: 84 0RF celecoxib 200 mg Capsule 200 mg PO BID 30 Days Qty: 60 0RF gabapentin 100 mg Capsule 100 mg PO BEDTIME 7 Days Qty: 7 0RF docusate sodium 100 mg Capsule 100 mg PO BID 30 Days Qty: 60 0RF oxycodone 5 mg tablet 5 mg PO Q4H PRN (Reason: pain (scale score 4-6)) 7 Days Qty: 42 0RF Rx Instructions: Partial Fill upon patient request. Continued (DME) walker Misc See Rx Instructions .ROUTE .MEDSUPPLY Qty: 1 0RF Rx Instructions: Folding front wheeled walker levothyroxine 100 mcg tablet 100 mcg PO DAILY@0600 pantoprazole 40 mg tablet,delayed release (DR/EC) 40 mg PO DAILY@0630 citalopram 10 mg tablet 10 mg PO DAILY amlodipine 10 mg tablet 10 mg PO DAILY glimepiride 2 mg tablet 2 mg PO DAILY irbesartan 300 mg tablet 300 mg PO BEDTIME rosuvastatin 40 mg tablet 40 mg PO DAILY Discontinued aspirin [Adult Aspirin Regimen] 81 mg tablet,delayed release (DR/EC) 81 mg PO DAILY Discharge Orders: Discharge Order (Routine); Ordered 01/27/24 Ordered By: Alysa Bailey Diet: Advance to usual diet Activity on Discharge: Use cane or walker Stand Alone Forms: Patient Portal Discharge page Care Plan Goals: restore fxn to rt knee Health Concerns: none Plan of Treatment: Physical Therapy for ROM 0-120, quad strength, gait training. Use walker for ambulation Limit stair climbing, No shower, No tub bath, No driving Continue anticoagulant Keep Aquacel dressing clean, dry and intact. Follow up with orthopedics in 2 weeks Assessment: stable fo d/c
--- NOTE | 2024-01-27 09:02 | W.MHC.F2F ---
Service Date Service Date: 01/27/24 Encounter Date of encounter: 01/27/24 Reasons for Services Signs and symptoms assessed: s/p RTKA. Pt. is considered homebound due to recent surgery. Unable to drive, poor balance, poor gait mechanics. Reason for physical therapy: home safety and mobility, therapeutic exercises, restore joint function, gait/transfer training, assess need for DME and ADL training Homebound: Leaving the home is medically contraindicated at this time without the asist of a device and/or another person due th the listed conditions above and below. Reason homebound: unsteady gait / fall risk, leg weakness, pain with ambulation, pain with transfers, poor balance / fall risk and unable to drive Certification: Based on the above findings, I certify that this patient is confined to the home and needs intermittent retirement care, physical therapy and/or speech therapy, or continues to need occupational therapy. The patient is under my care, and I have initiated the establishment of the plan of care. The patient will be followed by a physician who will periodically review the plan of care. Time Spent With Patient Time: Total time managing care of this patient today ____ minutes.
--- NOTE | 2024-01-27 09:54 | MHC.CM.PN ---
Addendum entered by Brooklyn Rojo RN 01/27/24 10:54: PT rec home w/ services. Patient is medically cleared for dc. [facility] does not service [facility]. [facility] has accepted patient for SOC 01/28, ortho PA aware and agreeable. Original Note: PATIENT IS FROM HOME W/ . FUNCTIONALLY INDEPENDENT. NO SERVICES. DM SUPPLIES THROUGH [employer]. PCP BHARAT BOO HCP - PT COMPLETED HCP NAMING AGENTS 1) MICHELLE ALCALA [phone] 2) DTR ELIZABETH KUMAR [phone] DP: PT EVAL PENDING. GOAL IS HOME W/ SERVICES. PREFERRED AGENCY IS [facility]. REFERRAL ENTERED, AWAITING RESPONSE. TO TRANSPORT HOME. CM WILL CONTINUE TO FOLLOW.
--- NOTE | 2024-01-27 14:03 | HO.POSTANES ---
Post Anesthesia Evaluation Post Anesthesia Evaluation Date of Service: 01/27/24 Vital Signs: Vital Signs Temp Pulse Resp BP Pulse Ox O2 Del Method 01/27/24 07:47 97 F 61 18 150/72 H 100 Room Air 01/27/24 03:51 96.8 F 62 18 131/63 96 Room Air Anesthesia: Spinal and Nerve Block Mental Status: Awake Pain Control: Satisfactory Nausea/Vomiting: None Hydration: Adequate Anesthesia-Related Issues: No Anes. Related Issues
== END 2024-01-27 12:55 | disposition home health service (06) | DRG 302 ==
LOC: HO.SSSA 06:00 → HO.S3 14:54
PROVIDERS: Physician Assistant; Admitting Provider Orthopaedic Surgery; PCP Family Medicine; Visit Provider Orthopaedic Surgery
PROC: 0SRC0J9 Replacement of Right Knee Joint with Synthetic Substitute, Cemented, Open Approach (ICD-10-PCS; CPT 27447; principal; 2024-01-26 08:40)
DX: M17.11 Unilateral primary osteoarthritis, right knee (principal); E11.9 Type 2 diabetes mellitus without complications; I10 Essential (primary) hypertension; E03.9 Hypothyroidism, unspecified; K21.9 Gastro-esophageal reflux disease without esophagitis; G89.18 Other acute postprocedural pain; Z79.84 Long term (current) use of oral hypoglycemic drugs; Z79.890 Hormone replacement therapy; Z79.899 Other long term (current) drug therapy
CPT/HCPCS: 36415; 80048; 82947; 85025; 86850; 86900; 86901; 87640; 87641; 88305; 88311; 97110; 97116; 97161; C1776; J0131; J0665; J0690; J1100; J1170; J1885; J2250; J2405; J2704; J3370; J7120

== ENCOUNTER → 2024-01-26 05:50 | Outpatient (BNV) | payer BC, SELFPAY | PROVIDERS: Admitting Provider Orthopaedic Surgery; PCP Family Medicine; Visit Provider Physician Assistant | DX: M17.11 Unilateral primary osteoarthritis, right knee (principal); Z96.651 Presence of right artificial knee joint | CPT/HCPCS: 99222 ==

== ENCOUNTER → 2024-01-26 05:50 | Outpatient (BNV) | payer BC, SELFPAY | PROVIDERS: Admitting Provider Orthopaedic Surgery; PCP Family Medicine; Visit Provider Orthopaedic Surgery | DX: M17.11 Unilateral primary osteoarthritis, right knee (principal) | CPT/HCPCS: 27447; 99024; G0180 ==

== ENCOUNTER 2024-02-12 09:32 | Outpatient (REF) | payer BC, SELFPAY ==
--- NOTE | ~2024-02-12 | XR_ITS ---
EXAMINATION: XR KNEE, RIGHT CLINICAL INFORMATION: Pain in unspecified knee. COMPARISON: 10/07/2023 TECHNIQUE: AP standing view of bilateral knees. Lateral and sunrise views of the right knee. FINDINGS: Right Knee: Status post interval total arthroplasty with anterior surgical saundra and large suprapatellar effusion. Hardware appears intact. Alignment is anatomic. Left Knee: AP standing view of the left knee demonstrates [id number] narrowing of the medial compartment with prominent medial marginal osteophytes as previously noted. XR/XR knee RT 3V IMPRESSION: Status post interval total arthroplasty with anterior surgical saundra and large suprapatellar effusion. Hardware appears intact. Alignment is anatomic.
== END 2024-02-12 09:33 | disposition home or self-care (01) ==
LOC: HO.HOSX 09:32
PROVIDERS: Visit Provider Physician Assistant
DX: Z96.651 Presence of right artificial knee joint (principal)
CPT/HCPCS: 73562

== ENCOUNTER 2024-02-12 13:06 | Outpatient (AMB) | payer BC, SELFPAY ==
--- NOTE | 2024-02-12 13:19 | MHC.OFFVIS ---
Intake Vital Signs 02/12/24 13:26 Height 5 ft 4 in Weight 200 lb BMI 34.3 Intake Visit Reasons: PO-RT TKA 01/26/24 Intake Note: Autumn is a 73 year old female who presents today for a post op appointment s/p right TKA 01/26/24. Patient reports she has been feeling a bit sore. Allergies codeine Allergy (Intermediate, Verified 02/12/24 13:26) Hives erythromycin base Allergy (Intermediate, Verified 02/12/24 13:26) Hives hydrocodone [Vicodin] Allergy (Intermediate, Verified 02/12/24 13:26) Hives latex Allergy (Intermediate, Verified 02/12/24 13:26) dermatitis flare-ups HPI PO-RT TKA 01/26/24 DR VALDIVIA Details 73-year-old female who presents in the office today 17 days status post right total knee arthroplasty, which was performed on 01/26/[address] Soares. The patient reports she is feeling a bit sore. [facility] Medical History Arthritis Anxiety Family history of sickle cell crisis Low serum potassium Hypothyroid Other and unspecified hyperlipidemia Essential hypertension Type 2 diabetes mellitus with unspecified complications Surgical History Hx of oral surgery Hx of left cataract extraction H/O colonoscopy Hx laparoscopic cholecystectomy Hx of appendectomy Family History Mother CHF (congestive heart failure) Father No problems noted. Social History Household Members: Spouse Housing: House Are you a primary career resource specialist to a significant other at home: No Do you presently have visiting nurse or other home services: No Patient Tobacco Use Status: Never used Tobacco service: No Current occupational status: employed Current occupation: [employer] Review of Systems Const All systems reviewed & are unremarkable except as noted in HPI and below Physical Exam Vital Signs: BMI result Body Mass Index 34.3 Const General: cooperative, healthy appearing and no acute distress Resp Effort & Inspection: normal respiratory effort and able to speak in complete sentences Cardio Rate: regular rate Peripheral pulses: Peripheral pulses 2+ throughout GI Palpation (GI): Soft to palpation Skin Lesions: no lesions Rashes: no rashes Extrem Other: Right knee: Incision site is clean, dry, and intact. Tasha intact. No surrounding erythema or drainage. No signs of infection. ROM is 0-110 degrees. NVI. Assessment & Plan Assessment & Plan (1) Status post total right knee replacement: Onset Date: ~01/26/24 Comment: Code(s): Z96.651 - Presence of right artificial knee joint Plan Ms. Trevizo is a 73-year-old female who presents in the office today 17 days status post right total knee arthroplasty, which was performed on 01/26/[address] Soares. The patient reports she is feeling a bit sore. Tasha were removed and steri-stripes were applied. An order was placed for out patient physical therapy, which should begin as soon as possible. Follow up will be in [address] Soares, or sooner if needed. I sent a prescription for an antibiotic prophylactically for possible dental work in the future. However, the patient was educated they should not have any major dental work after the right total knee arthroplasty. X-rays of the right knee which were obtained while in the office today and were reviewed by me, Alysa Bailey PA-C, revealed intact orthopedic hardware. Current pain regiment: --Acetaminophen 650 mg PO Q6H PRN -Oxycodone 5 mg PO Q4H PRN Orders: Orders PT Evaluation and Treatment 02/09/24 Z96.651 - Presence of right artificial knee joint XR knee standing BI Today M25.569 - Pain in unspecified knee Medications: New amoxicillin 2,000 mg (4 x 500 mg) PO ONCE 4 tabs 0RF take 4 tabs by mouth 1 hour prior to dental ppx 1 day Patient Instructions: Scribed by Alondra Pate curator medical museum, for Alysa Bailey PA-C on 02/12/2024 at 1:09 pm, EST. Coding Level of Care Code Global (03092) Diagnoses Status post total right knee replacement Z96.651
[2024-02-12 13:26] VITALS: BMI 34.3
== END 2024-02-12 13:57 | disposition home or self-care (01) ==
PROVIDERS: PCP Nurse Practitioner Adult Health; Visit Provider Physician Assistant
DX: Z96.651 Presence of right artificial knee joint (principal)
CPT/HCPCS: 99024

== ENCOUNTER 2024-02-19 13:58 | Outpatient (RCR) | payer BC, SELFPAY | END 2024-04-13 07:05 | disposition home or self-care (01) | LOC: HO.PT 13:58 | PROVIDERS: Absent Provider Physician Assistant; PCP Family Medicine; Visit Provider Physician Assistant | DX: Z96.651 Presence of right artificial knee joint (principal) ==

== ENCOUNTER 2024-03-03 11:43 | Outpatient (AMB) | payer BC, SELFPAY ==
[2024-03-03 11:50] VITALS: BMI 34.3
--- NOTE | 2024-03-03 11:50 | A.OFFVIS_ITS ---
Intake Vital Signs 03/03/24 11:50 Height 5 ft 4 in Weight 200 lb BMI 34.3 Intake Visit Reasons: PO- 6 wk RT TKA 01/26/24 Intake Note: Autumn is a 73 year old female who presents for her post operative appointment s/p her Right TKA on 01/26/2024. Patient reports she is doing well and has no concerns at this time. She continues to go to physical therapy here at [facility]. She denies any fevers or chills. She does not take any medicines for discomfort. Allergies codeine Allergy (Intermediate, Verified 03/03/24 11:55) Hives erythromycin base Allergy (Intermediate, Verified 03/03/24 11:55) Hives hydrocodone [Vicodin] Allergy (Intermediate, Verified 03/03/24 11:55) Hives latex Allergy (Intermediate, Verified 03/03/24 11:55) dermatitis flare-ups Medication List - Last Reconciled 03/03/24 by Harshal Soares MD acetaminophen 650 mg (2 x 325 mg) PO Q6H PRN 30 days amlodipine 10 mg PO DAILY amoxicillin 2,000 mg (4 x 500 mg) PO ONCE 1 day aspirin 325 mg PO BID 42 days celecoxib 200 mg PO BID 30 days citalopram 10 mg PO DAILY docusate sodium 100 mg PO BID 30 days gabapentin 100 mg PO BEDTIME 7 days glimepiride 2 mg PO DAILY irbesartan 300 mg PO BEDTIME levothyroxine 100 mcg PO DAILY@0600 methocarbamol 500 mg PO TID 7 days oxycodone 5 mg PO Q4H PRN 7 days pantoprazole 40 mg PO DAILY@0630 rosuvastatin 40 mg PO DAILY walker Folding front wheeled walker [facility] Medical History Arthritis Anxiety Family history of sickle cell crisis Low serum potassium Hypothyroid Other and unspecified hyperlipidemia Essential hypertension Type 2 diabetes mellitus with unspecified complications Surgical History Hx of oral surgery Hx of left cataract extraction H/O colonoscopy Hx laparoscopic cholecystectomy Hx of appendectomy Family History Mother CHF (congestive heart failure) Father No problems noted. Social History Household Members: Spouse Housing: House Are you a primary laboratory animal care veterinarian to a significant other at home: No Do you presently have visiting nurse or other home services: No Patient Tobacco Use Status: Never used Tobacco service: No Current occupational status: employed Current occupation: [employer] Physical Exam Vital Signs: BMI result Body Mass Index 34.3 Extrem Other: Right knee examination shows that incision is well healed, no erythema, full active extension and flexion 120 degrees, her patella tracks well Assessment & Plan Assessment & Plan (1) Status post total right knee replacement: Onset Date: ~01/26/24 Comment: Code(s): Z96.651 - Presence of right artificial knee joint Plan Ms. Trevizo continues to do well after undergoing right total knee replacement [facility] on 01/26/2024. She will continue going to formal physical therapy for now. She does know to take antibiotics before any dental work. She will contact me prior to her follow-up appointment in 6 weeks should any questions or concerns arise. Feel free to call me at any time should questions regarding her orthopedic management arise. Coding Level of Care Code Global (10177) Diagnoses Status post total right knee replacement Z96.651
== END 2024-03-03 12:08 | disposition home or self-care (01) ==
PROVIDERS: PCP Nurse Practitioner Adult Health; Visit Provider Orthopaedic Surgery
DX: Z96.651 Presence of right artificial knee joint (principal)
CPT/HCPCS: 99024

== ENCOUNTER → 2024-03-03 11:43 | Outpatient (BNVA) | payer BC, SELFPAY | PROVIDERS: PCP Nurse Practitioner Adult Health; Visit Provider Orthopaedic Surgery ==

== ENCOUNTER 2024-04-07 10:00 | Outpatient (RCR) | payer BC, SELFPAY ==
--- NOTE | 2024-03-12 11:54 | MHC.PT.EP ---
[facility] [place] Office [place] Office [place] Office [address] Pati Liu [address] [phone] F: [phone] F: [phone] F: [phone] F: [phone] Physical Therapy Plan of Care Date of Evaluation: 03/12/24 Date of Surgery: 01/26/24 Diagnosis: R TKA Assessment: Pt is a 73 y/o female referred to PT for eval and treat s/p T TKA performed on 01/26/24 for management of her chronic R knee pain. She reports extended home PT x 5 weeks and has RTW. her condition results in decreased tolerance for walking and standing for increased duration, negotiating stairs and curbs, and performing heavy HH chores secondary to decreased B R > L knee ROM, decreased B hip and R knee strength, gait abnormality, surgical healing process and pain. Pt is deemed an appropriate candidate to receive skilled PT services to address their physical impairments in order to improve their functional ability. Frequency and Duration: The patient will be seen 2 x/wk x 5 wks. Short Term Goals: Pt will achieve 0 deg knee extension; initial 5 deg flexion. Pt will achieve at least 125 deg R knee flexion AROM. initial 80. I with home program. Cigar Head Stringer Goals: I with home program. Improve LEFI outcome measure by at least 9 points. Pt will be able to ascend and descend 1 fl of stairs with reciprocal gait. Improve R knee extension MMT strength by at least 1/2 grade; initial: 02/26. Treatment Plan: Modalities to reduce pain, spasms and effusion. Manual therapy to restore motion and function. Therapeutic exercise to improve strength and flexibility. Neuromuscular re-education for posture and balance. Therapeutic activities to return to functional activities of daily living. Electronically signed by: Ag Garner PT. Please sign and return to therapist. Thank you for your referral.
--- NOTE | 2024-08-13 07:32 | MHC.PT.DC ---
[facility] [place] Office [place] Office [place] Office [address] [facility] [phone] F: [phone] F: [phone] F: [phone] F: [phone] Physical Therapy Discharge Report Diagnosis: R TKA Date of Surgery: 01/26/24 Date of Evaluation: 03/12/24 Date of Discharge: 08/13/24 Treatments to Date: 5 Cancellations to Date: 5 No Shows to Date: 1 Discharge Status: Visit Non-compliance Discharge Summary: Autumn is being discharged today per our attendance policy after logging 5 cancellations and 1 no show visit. Electronically signed by: Ag Garner PT. Please sign and return to therapist. Thank you for your referral.
== END 2024-08-13 07:32 | disposition home or self-care (01) ==
LOC: HO.PT 10:00
PROVIDERS: PCP Family Medicine; Visit Provider Physician Assistant
DX: Z96.651 Presence of right artificial knee joint (principal)
CPT/HCPCS: 97110; 97161; 97530

== ENCOUNTER 2024-05-05 09:27 | Outpatient (AMB) | payer BC, SELFPAY ==
--- NOTE | 2024-05-05 09:33 | MHC.OFFVIS ---
Vital Signs 05/05/24 09:35 Height 5 ft 4 in Weight 200 lb BMI 34.3 Intake Visit Reasons: PO-RT TKA 01/26/24 2 month follow up Intake Note: Autumn is a 73 year old female who presents today for a follow up visit s/p RT TKA 01/26/24 Patient expresses she is doing well and have no concerns. She continues with her physical therapy exercises. She takes Tylenol as needed for discomfort. She has returned to gardening while sitting on a stool. Allergies codeine Allergy (Intermediate, Verified 05/05/24 09:36) Hives erythromycin base Allergy (Intermediate, Verified 05/05/24 09:36) Hives hydrocodone [Vicodin] Allergy (Intermediate, Verified 05/05/24 09:36) Hives latex Allergy (Intermediate, Verified 05/05/24 09:36) dermatitis flare-ups Medication List - Last Reconciled 05/05/24 by Harshal Soares MD acetaminophen 650 mg (2 x 325 mg) PO Q6H PRN 30 days amlodipine 10 mg PO DAILY aspirin 325 mg PO BID 42 days celecoxib 200 mg PO BID 30 days citalopram 10 mg PO DAILY glimepiride 2 mg PO DAILY irbesartan 300 mg PO BEDTIME levothyroxine 100 mcg PO DAILY@0600 pantoprazole 40 mg PO DAILY@0630 rosuvastatin 40 mg PO DAILY walker Folding front wheeled walker [facility] Medical History Arthritis Anxiety Family history of sickle cell crisis Low serum potassium Hypothyroid Other and unspecified hyperlipidemia Essential hypertension Type 2 diabetes mellitus with unspecified complications Surgical History Hx of oral surgery Hx of left cataract extraction H/O colonoscopy Hx laparoscopic cholecystectomy Hx of appendectomy Family History Mother CHF (congestive heart failure) Father No problems noted. 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 Trevizo continues to do very well after undergoing right total knee replacement surgery on 01/26/2024. She will continue with her physical therapy exercises. She does know to take antibiotics before any dental work. She will contact me prior to her follow-up appointment in 3 months should any questions or concerns arise. Feel free to call me at any time should questions regarding her orthopedic management arise. I spent 20 minutes in reviewing the patient's records and imaging studies, seeing the patient and documenting in the medical record. Coding Level of Care Code Est Pt Level 3 (84981) Diagnoses Right knee pain M25.561
[2024-05-05 09:35] VITALS: BMI 34.3
== END 2024-05-05 10:05 | disposition home or self-care (01) ==
PROVIDERS: PCP Nurse Practitioner Adult Health; Visit Provider Orthopaedic Surgery
DX: M25.561 Pain in right knee (principal)
CPT/HCPCS: 99213

== ENCOUNTER → 2024-05-05 09:27 | Outpatient (BNVA) | payer BC, SELFPAY | PROVIDERS: PCP Nurse Practitioner Adult Health; Visit Provider Orthopaedic Surgery ==

== ENCOUNTER 2024-08-04 09:51 | Outpatient (AMB) | payer BC, SELFPAY ==
[2024-08-04 09:53] VITALS: BMI 34.3
--- NOTE | 2024-08-04 09:53 | A.OFFVIS_ITS ---
Vital Signs 08/04/24 09:53 Height 5 ft 4 in Weight 200 lb BMI 34.3 Intake Visit Reasons: OV -RT TKA 01/26/24 3 month follow up Intake Note: Autumn is a 73 year old female who presents today for a follow up visit s/p right TKA done by Dr. Soares, DOS 01/26/24. She reports mild intermittent discomfort in her right knee. She does not take any medicines for her discomfort. She continues with her home stretching program. She denies any fevers or chills. Allergies codeine Allergy (Intermediate, Verified 08/04/24 09:57) Hives erythromycin base Allergy (Intermediate, Verified 08/04/24 09:57) Hives hydrocodone [Vicodin] Allergy (Intermediate, Verified 08/04/24 09:57) Hives latex Allergy (Intermediate, Verified 08/04/24 09:57) dermatitis flare-ups Medication List - Last Reconciled 08/04/24 by Harshal Soares MD acetaminophen 650 mg (2 x 325 mg) PO Q6H PRN 30 days amlodipine 10 mg PO DAILY aspirin 325 mg PO BID 42 days celecoxib 200 mg PO BID 30 days citalopram 10 mg PO DAILY glimepiride 2 mg PO DAILY irbesartan 300 mg PO BEDTIME levothyroxine 100 mcg PO DAILY@0600 pantoprazole 40 mg PO DAILY@0630 rosuvastatin 40 mg PO DAILY walker Folding front wheeled walker [facility] Medical History Arthritis Anxiety Family history of sickle cell crisis Low serum potassium Hypothyroid Other and unspecified hyperlipidemia Essential hypertension Type 2 diabetes mellitus with unspecified complications Surgical History Hx of oral surgery Hx of left cataract extraction H/O colonoscopy Hx laparoscopic cholecystectomy Hx of appendectomy Family History Mother CHF (congestive heart failure) Father No problems noted. 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 Trevizo continues to do very well after undergoing right total knee replacement surgery on 01/26/2024. She will continue with her home exercise program. She does know to take antibiotics before any dental work. She will contact me prior to her annual follow-up appointment should any questions or concerns arise. Feel free to call me at any time should questions regarding her orthopedic management arise. I spent 21 minutes in reviewing the patient's records and imaging studies, seeing the patient and documenting in the medical record. Orders: Orders XR knee RT 3V Today M25.561 - Pain in right knee Coding Level of Care Code Est Pt Level 3 (37693) Complex EM visit Add On G2211 Diagnoses Right knee pain M25.561
== END 2024-08-04 10:01 | disposition home or self-care (01) ==
PROVIDERS: PCP Nurse Practitioner Adult Health; Visit Provider Orthopaedic Surgery
DX: M25.561 Pain in right knee (principal); Z96.651 Presence of right artificial knee joint
CPT/HCPCS: 99213

== ENCOUNTER 2025-02-21 16:22 | Outpatient (REF) | payer BC, SELFPAY ==
--- OUTSIDE RECORDS SUMMARY | 2025-02-21 17:59 | XMS_ITS | Encounter Summary ---
Author Organization [email or web address] Address [address] [facility] [address] [place] [address] Care Team Providers Care Psychologist Industrial Organizational Name Role Phone Noelle Sargent MD Primary Care Provider [phone] Reason for Visit * Reason Comments Med Refill Encounter Details Date Type Department Care Team ([facility] st Contact Info) Description 06/25/2023 Refill [facility] [address] [place] [address] Aline Aaron MD [address] [place] [address] Social History Tobacco Use Types Packs/Day Years Used Date Smoking Tobacco: Never Passive Smoke Exposure: Never Smokeless Tobacco: Never Alcohol Use Standard Drinks/Week Comments Yes 1 (1 standard drink = 0.6 oz pur e alcohol) Depression Answer Date Recorded Patient Health Questionnaire-9 Score 0 03/07/2023 Depression Answer Date Recorded Patient Health Questionnaire-2 Score 0 03/07/2023 Comments Unknown Sex and Gender Information Value Date Recorded Sex Assigned at Female 02/07/2023 12:38 PM EDT Legal Sex Female 12:36 PM EDT Gender Identity Female 02/07/2023 12:38 PM EDT Sexual Orientation Straight 02/07/2023 12 :38 PM EDT COVID-19 Exposure Response Date Recorded In the last 10 days, have yo u been in contact with someone who was confirmed or suspected to have Coronavirus/COVID-19? No / Unsure 05/29/2023 9:22 AM EDT documented as of this encounter Plan of Treatment Not on file documented as of this encounter Visit Diagnoses Not on filedocumented in this encounter Additional Health Concerns Assessment Noted Time PHQ-9 Depression Total Score: 0 03/07/20 1:43 PM EDT documented as of this encounter Care Teams Psychologist Industrial Organizational Relationship Specialty Start Date End Date Noelle Sargent MD [address] [place] [address] PCP - General Family Medicine 02/07/23 documented as of this encounter
--- OUTSIDE RECORDS SUMMARY | 2025-02-21 17:59 | XMS_ITS | Encounter Summary ---
Author Organization [employer] Address [address] [facility] [address] [place] [address] Care Team Providers Care Inspection Machine Tender Name Role Phone Noelle Sargent MD Primary Care Provider [phone] Encounter Details Date Type Department Care Team (Latest Contact Info) Description 02/21/2025 Travel Social History Tobacco Use Types Packs/Day Years Used Date Smoking Tobacco: Never Passive Smoke Exposure: Never Smokeless Tobacco: Never Alcohol Use Standard Drinks/Week Comments Yes 1 (1 standard drink = 0.6 oz pur e alcohol) Depression Answer Date Recorded Patient Health Questionnaire-9 Score 0 03/07/2023 Housing Stability Answer Date Recorded What is your housing situation today? I have [place]e motne 09/09/[address] you li ve. Do you have problems with any of the following? None of the above 09/09/2023 Food Insecurity Answer Date Recorded Within the past 12 months, y ou worried that your food would run out before you got money to buy more: Never True 09/09/2023 Within the past 12 months,th e food you bought just didn't last and you didn't have enough money to get more: Never True Transportation Answer Date Recorded In the past 12 months, has l ack of transportation kept you from medical appts, meetings, work or from getting things needed for daily living? No 09/09/2023 Utilities Answer Date Recorded In the past 12 months, has t he electric, gas, oil or water company threatened to shut off services in your home? No 09/09/2023 Depression Answer Date Recorded Patient Health Questionnaire-2 Score 0 03/07/2023 Comments Unknown Sex and Gender Information Value Date Recorded Sex Assigned at Female 02/07/2023 12:38 PM EDT Legal Sex Female 12:36 PM EDT Gender Identity Female 02/07/2023 12:38 PM EDT Sexual Orientation Straight 02/07/2023 12 :38 PM EDT documented as of this encounter Plan of Treatment Not on file documented as of this encounter Visit Diagnoses Not on filedocumented in this encounter Additional Health Concerns Assessment Noted Time PHQ-9 Depression Total Score: 0 03/07/20 1:43 PM EDT documented as of this encounter Care Teams Inspection Machine Tender Relationship Specialty Start Date End Date Noelle Sargent MD [address] [place] [address] PCP - General Family Medicine 02/07/23 documented as of this encounter
--- OUTSIDE RECORDS SUMMARY | 2025-02-21 17:59 | XMS_ITS | Clinical Summary ---
Author Organization [employer] Address [address] [facility] 7t [place] [address] Care Team Providers Care Air Analysis Technician Name Role Phone Noelle Sargent MD Primary Care Provider [phone] Allergies Active Allergy Reactions Criticality Noted Date Comments Chlorthalidone Other 10/21/2023 Severe hypoK with chlorthalidone Codeine Hives 03/07/2023 Erythromycin Hives,Itching 03/07/2023 Medications FREESTYLE LITE test strip Use 2x/dayUse as instructed 100 each 3 3 Active Lancets Ultra Thin 30G misc 1 each 3 times daily. 100 each 1 3 Active acetaminophen (Tylenol) 500 MG tablet Take 2 tablets (1,000 mg) by mouth every 6 (six) hours if needed for moderate pain or fever for up to 25 doses. 50 tablet 3 Active irbesartan (Avapro) 300 MG tablet Take 1 tablet (300 mg) by mouth at bedtime. 90 tablet 1 3 Active rosuvastatin (Crestor) 40 MG tablet Take 1 tablet (40 mg) by mouth in the morning. 90 tablet 1 3 Active glimepiride (Amaryl) 2 MG tablet TAKE 1 TABLET BY MOUTH BEFORE BREAKFAST 90 tablet 1 4 Active celecoxib (CeleBREX) 200 MG capsule TAKE 1 CAPSULE BY MOUTH TWICE A DAY 180 capsule 1 4 Active citalopram (CeleXA) 10 MG tablet TAKE 1 TABLET BY MOUTH IN THE MORNING 90 tablet 1 4 Active pantoprazole (ProtoNix) 40 MG EC tablet TAKE ONE TABLET BY MOUTH EVERY DAY BEFORE BREAKFAST 90 tablet 1 4 Active amLODIPine (Norvasc) 10 MG tablet TAKE 1 TABLET BY MOUTH EVERY MORNING 90 tablet 1 5 Active levothyroxine (Synthroid, Levoxyl) 100 MCG tablet TAKE 1 TABLET BY MOUTH BEFORE BREAKFAST 90 tablet 1 5 Active amoxicillin-cla vulanate (Augmentin) 875-125 MG tablet Take 1 tablet by mouth 2 times daily for 5 days. 10 tablet 5 02/27/20 25 Active albuterol 108 (90 Base) MCG/ACT inhaler Inhale 2 puffs Every 4-6 hours as needed for wheezing or shortness of breath. 18 g 5 02/22/20 26 Active Active Problems Problem Noted Date Diagnosed Date Preop cardiovascular exam 01/05/2024 Assessment & Plan (01/05/2024 9:38 AM EST): Patient was seen for pre-operative evaluation. Patient reports no symptoms of CP at rest or with exertion, dyspnea at rest or with exertion, PND, LE edema, claudication, or palpitations. Patient has no hx of ischemic heart disease, CHF, CVD, recent anticoagulant or antithrombotic use, person or family hx of coagulopathy. Patient reports no history of stress test, cardiac cath or coronary revascularization. Controlled DM, not insulin dependent. Patients without any known cardiac risk factors. According to the RCRI, this number of risk factors stratifies the patient to Class O, which carries a 0.4% risk of major CV complications. In this case, CV Risk is low for the intended procedure. Can proceed with intended procedure Lab Results Component Value Date CREATININE 0.82 10/28/2023 Lab Results Component Value Date HGBA1C 6.2 (A) 01/05/2024 Pain in both hands 03/07/2023 Assessment & Plan (03/07/2023 2:13 PM EDT): Patient with wrist pain and waisting on hypothenar eminence of bilateral hands upon examination. Will send for EMG to assess nerve function. Breast cancer screening by mammogram 03/07/2023 Arthritis of knee 03/07/2023 Assessment & Plan (03/07/2023 2:13 PM EDT): Patient with chronic knee pain. Will send for x-ray of bilateral knees. HTN (hypertension) 02/25/2023 Assessment & Plan (10/21/2023 4:33 PM EST): Controlled: patient presented visit with normal blood pressure readings; will not make nay changes at this time. Reccommended keep monitoring readings at home. Assessment & Plan (08/15/2023 4:37 PM EDT): Uncontrolled, will switch hydrochlorothiazide to chorthalidone. Target < 130/80 mmHg given hx of DM, but given age ok with BP < 140/90 mmHg. If no improvement consider spirolactone. Type 2 diabetes mellitus wit hout complication, without long-term current use of insulin 02/25/2023 Assessment & Plan (10/21/2023 4:32 PM EST): Controlled: A1C levels are 7%. Will not make any changes at this time. Recommended to keep monitoring glucose levels at home. Assessment & Plan (08/15/2023 11:59 AM EDT): Diabetes is controlled. Assessment & Plan (07/04/2023 12:08 PM EDT): Controlled. Continue current regimen. Assessment & Plan (03/07/2023 2:12 PM EDT): Will send labs and check levels. 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 Will repeat labs to monitor levels. GERD (gastroesophageal reflux disease) 3 Hyperlipidemia 02/25/2023 Fibromyalgia 02/25/2023 History of laparoscopic cholecystectomy 02/26/20 23 History of right cataract extraction 02/25/2023 History of left cataract extraction 02/25/2023 Resolved Problems Problem Noted Date Diagnosed Date Resolved Date Pre-op evaluation 01/05/2024 01/05/2024 Chest sounds abnormal on per cussion or auscultation 10/10/2023 01/05/2024 Assessment & Plan (10/10/2023 10:10 AM EST): -Referred to Cardiology. Hypokalemia 10/10/2023 01/05/2024 Assessment & Plan (10/21/2023 4:32 PM EST): Medication refill. Will recheck patient's potassium levels. -Labs: Basic Met. Panel. Hypothyroidism 08/15/2023 01/05/2024 Abnormal flushing and sweating 07/04/2023 01/05/2024 Assessment & Plan (10/10/2023 10:10 AM EST): Patient that presented visit with complaints of hot flashes will have an EKG preformed at the time of office visit for further evaluation. Also, patient will be prescribed Ondansetron to control episodes of nausea. -Labs: CBC, Met. Panel, Holter Monitor, Magnesium, TSH/FT4. Encounters Date Type Department Care Team Description 02/21/2025 11:00 AM EDT Office Visit [facility] MED & PEDS [address] [place] [address] Diane Bush FNP Viral syndrome (Primary Dx) 02/21/2025 Travel 02/21/2025 Telephone [facility] MEDICINE [address] [place], [place] [phone] Noelle Sargent MD Nurse Triage 12/14/[address] [facility] [address] [place] [address] Noelle Sargent MD 11/30/[address] [facility] [address] [place] [address] Noelle Sargent MD 11/25/[address] [facility] [address] [place] [address] Noelle Sargent MD Appointment Request 11/24/[address] [facility] [address] [place] [address] Juan Pablo Dale MD 11/24/2024 Refill [facility] CHC MED & PEDS [address] [place] [address] Noelle Sargent MD from Last 3 Months Immunizations Name Administration Dates Next Due Influenza injectable quadrivalent preservative f ree 08/15/2023 Pneumococcal Conjugate PCV 20 07/04/2023 Social History Tobacco Use Types Packs/Day Years Used Date Smoking Tobacco: Never Passive Smoke Exposure: Never Smokeless Tobacco: Never Tobacco Cessation:Counseling Given: Not Answered Alcohol Use Standard Drinks/Week Comments Yes 1 (1 standard drink = 0.6 oz pur e alcohol) Depression Answer Date Recorded Patient Health Questionnaire-9 Score 0 03/07/2023 Housing Stability Answer Date Recorded What is your housing situation today? I have maine mell 09/09/[address] you li [...] Orientation Straight 02/07/2023 12 :38 PM EDT Last Filed Vital Signs Vital Sign Reading Time Taken Comments Blood Pressure 157/75 02/21/2025 11:39 AM EDT Pulse 87 02/21/2025 11:39 AM EDT Temperature 37.1 ??C (98.8 ??F) 02/21/2025 11:39 AM E DT Respiratory Rate 22 02/21/2025 11:39 AM EDT Oxygen Saturation 93% 02/21/2025 11:39 AM EDT Inhaled Oxygen Concentration - - Weight 88.2 kg (194 lb 6 oz) 02/21/2025 11:39 AM EDT Height 162.6 cm (5' 4 ) 02/21/2025 11:39 AM EDT Body Mass Index 33.36 02/21/2025 11:39 AM EDT Plan of Treatment Health Maintenance Due Date Last Done Comments CT Colonography 1951 Colonoscopy 1951 FIT 1951 FOBT 1951 Lipid Panel 1951 Sigmoidoscopy 1951 Eye Exam 1961 Alcohol/Substance Use Screening 1963 Hepatitis C Screening 1969 DTaP/Tdap/Td Vaccines (1 - Tdap) 1970 Diabetes: Urine Protein Screening 1970 Mammogram 1991 Zoster Vaccines (1 of 2) 2001 Depression Screening 03/07/2024 03/07/2023, 03/07/20 23 SDOH Screening 03/07/2024 03/07/2023 Diabetes: Foot Exam 07/04/2024 07/04/2023 Diabetes: Hemoglobin A1C 07/05/2024 024, 10/21/2023, 10/10/2023, Additional history exists Tobacco Screening 02/21/2026 02/21/2025 Colorectal Cancer Screening 04/08/2026 FIT DNA/Cologuard 04/08/2026 04/08/2023, 03/18/2023 RSV Patients and Patients Aged 60 years or older (1 - 1-dose 75+ series) 2026 Pneumococcal Vaccine: 50+ Years Completed 07/04/2023 COVID-19 Vaccine Completed 10/09/2024 Influenza Vaccine Completed 10/09/2024, 08/15/2023 HIB Vaccines Aged Out No longer eligi ble based on patient's age to complete this topic HPV Vaccines Aged Out No longer eligi ble based on patient's age to complete this topic Hepatitis A Vaccines Aged Out No long er eligible based on patient's age to complete this topic Hepatitis B Vaccines Aged Out No long er eligible based on patient's age to complete this topic IPV Vaccines Aged Out No longer eligi ble based on patient's age to complete this topic Meningococcal Vaccine Aged Out No esau jeferson eligible based on patient's age to complete this topic RSV under 20 months Aged Out No longe r eligible based on patient's age to complete this topic Rotavirus Vaccines Aged Out No longer eligible based on patient's age to complete this topic Procedures Procedure Name Priority Date/Time Associated Diagnosis Comments POCT RAPID COVID ANTIGEN Routine 02/21/2025 12:09 PM EDT Viral syndrome POCT RSV (ID NOW RAPID ANTIGEN) Routine 02/21/2025 12:09 PM EDT Viral syndrome POCT INFLUENZA B Routine 02/21/2025 12:0 7 PM EDT Viral syndrome POCT INFLUENZA A Routine 02/21/2025 12:0 1 PM EDT Viral syndrome POCT GLYCATED HEMOGLOBIN, TOTAL Routine 01/05/2024 9:28 AM EST Type 2 diabetes mellitus without complication, without long-term current use of insulin ([facility]) HP LINK DIABETIC FOOT EXAM Routine 07/04/2023 COLOGUARD COLON CANCER SCREENING (EXTERNAL RESULTS ONLY) Routine 04/08/2023 2:35 PM EDT from Last 3 Months or Most Recently Relevant to Health Maintenance Results * POCT Rapid RSV WALLS ID NOW (02/21/2025 12:09 PM EDT) RSV Rapid Ag POC Negative Negative Comment:Internal kathe spencer ssed QC Media Lot # [id number] Lot# Expiration Date , Swab 02/21/2025 12:0 9 PM EDT Diane Bush BEAN PICKER MACHINE OPERATOR POINT OF CARE TEST ENTER/EDIT ORDERABLES Final Result * POCT Rapid Covid-19 BinaxNOW (02/21/2025 12:09 PM EDT) [facility] Rapid COVID Ag Negative Comment:Lana lisa QC Media Lot # [id number] Lot# Expiration Date [id number] Blood 02/21/2025 12:0 9 PM EDT Diane Bush [facility] POINT OF CARE TEST ENTER/EDIT ORDERABLES Final Result * POCT Rapid Influenza B OSOM (02/21/2025 12:07 PM EDT) [facility] Rapid Influenza B Ag Negative Negative, Indeterminate Comment:Lana lisa QC Media Lot # [id number] Lot# Expiration Date Swab 02/21/2025 12:0 7 PM EDT Diane TREVINOP POINT OF CARE TEST ENTER/EDIT ORDERABLES Final Result * POCT Rapid Influenza A OSOM (02/21/2025 12:01 PM EDT) [facility] Rapid Influenza A Ag Negative Negative, Indeterminate Comment:Lana lisa QC Media Lot # [id number] Lot# Expiration Date , Swab Nasopharyngeal structure / Unknown 02/21/2025 12:01 PM EDT Diane Bush [facility] POINT OF CARE TEST ENTER/EDIT ORDERABLES Final Result * (ABNORMAL) POCT HGB A1C (01/05/2024 9:28 AM EST) [facility] Hemoglobin A1C 6.2(A) 4.0 - 6.0 % QC Media Lot # [id number] Lot# Expiration Date ,025 Blood 01/05/2024 9:28 AM EST Noelle Sargent MD POINT OF CARE TEST ENTER/EDIT ORDERABLES Final Result * HP Diabetic Foot Exam (07/04/2023) Noelle Ramirez MD - 07/04/2023 Diabetic Foot Exam Inspection: Dryness on skin and heel Slightly flat footed. Ulcers: not ??observed Calluses: ??between 4th and 5th metatarsals on L foot Edema: anterior mahan pitting edema bilaterally Onychomycosis: not ??observed Tinea pedis: not ??observed Charcot foot or other deformities: not ??observed Erythema: not ??observed Monofilament Foot Exam: normal Right Foot : Great toe Normal 1st MT Normal 3rd MT Normal 5th MT Normal Heel Normal with dryness mild edema on anterior mahan . Left Foot Great toe Normal 1st MT Normal 3rd MT Normal 5th MT Normal Heel Normal callus between 4th and 5th metatarsal dryness anterior mahan pitting edema Vibration: Right foot: ??normal > 8 seconds Left foot: ??normal > 8 seconds Pedal Pulses: -Right dorsalis pedis: diminished pulses on R anterior -Right posterior tibialis: present +2 -Left dorsalis pedis: normal +2 -Left posterior tibialis: present normal +2 Neurological: ?? Mental Status: She is alert and oriented to person, place, and time. Psychiatric: ? Mood and Affect: Mood normal. ? Behavior: Behavior normal. Noelle Sargent MD HEALTH MAINTENANCE Final Resu lt * Cologuard Colon Cancer Screening (04/08/2023 2:35 PM EDT) Cologuard Cancer Screen Negative Comment:Neg, rpt in 2 yrs Stool 04/08/2023 2:35 PM EDT Noelle Ramirez MD - 04/08/2023 2:35 PM EDT Negative rpt in 2 yrs Noelle Sargent MD POINT OF CARE TEST ENTER/EDIT ORDERABLES Final Result from Last 3 Months or Most Recently Relevant to Health Maintenance Insurance [facility] H[facility] Care Teams Air Analysis Technician Relationship Specialty Start Date End Date Noelle Sargent MD [address] [place] [id number] PCP - General Family Medicine 02/07/23
--- OUTSIDE RECORDS SUMMARY | 2025-02-21 17:59 | XMS_ITS | Encounter Summary ---
Author Organization [employer] Address [address] [facility] [address] [place] [address] Care Team Providers Care Speech Professor Name Role Phone Noelle Sargent MD Primary Care Provider [phone] Reason for Visit * Reason Comments Med Refill Encounter Details Date Type Department Care Team ([facility] st Contact Info) Description 06/20/2023 Refill [facility] CHC MED & PEDS [address] [place] [address] Aline Aaron MD [address] [place] [address] Social History Tobacco Use Types Packs/Day Years [...] documented as of this encounter Care Teams Speech Professor Relationship Specialty Start Date End Date Noelle Sargent MD [address] [place] [address] PCP - General Family Medicine 02/07/23 documented as of this encounter
--- OUTSIDE RECORDS SUMMARY | 2025-02-21 17:59 | XMS_ITS | Encounter Summary ---
Author Organization [employer] Address [address] [facility] [address] [place] [address] Care Team Providers Care Fire Captain Name Role Phone Noelle Sargent MD Primary Care Provider [phone] Encounter Details Date Type Department Care Team ([facility] Contact Info) Description 02/21/2025 11:00 AM EDT Office Visit [facility] CHC MED & PEDS [address] [place], [place] [phone] Diane Bush, MARY [address] [place] [address] Viral syndrome (Primary Dx) Social History Tobacco Use Types Packs/Day Years Used Date Smoking Tobacco: Never Passive Smoke Exposure: Never Smokeless Tobacco: Never Alcohol Use Standard Drinks/Week Comments Yes 1 (1 standard drink = 0.6 oz pur e alcohol) Depression Answer Date Recorded Patient Health Questionnaire-9 Score 0 03/07/2023 Housing Stability Answer Date Recorded What is your housing situation today? I have maine monte 09/09/[address] you li [...] PM EDT documented as of this encounter Last Filed Vital Signs Vital Sign Reading [...] Mass Index 33.36 02/21/2025 11:39 AM EDT documented in this encounter Plan of Treatment Scheduled Orders Name Type Priority Associated Diagnoses Orde r Schedule Respiratory Viral Panel PCR Lab Routine Viral syndrome Expected: 02/21/2025 (Approximate), Expires: 02/21/2026 documented as of this encounter Procedures Procedure Name Priority Date/Time Associated Diagnosis Comments POCT RSV (ID NOW RAPID ANTIGEN) Routine 02/21/2025 12:09 PM EDT Viral syndrome POCT RAPID COVID ANTIGEN Routine 02/21/2025 12:09 PM EDT Viral syndrome POCT INFLUENZA B Routine 02/21/2025 12:0 7 PM EDT Viral syndrome POCT INFLUENZA A Routine 02/21/2025 12:0 1 PM EDT Viral syndrome documented in this encounter Results * POCT Rapid Covid-19 BinaxNOW (02/21/2025 12:09 PM EDT) Pathologist [facility] Rapid COVID Ag Negative Comment:Lana tannerd QC Media Lot # [id number] Lot# Expiration Date [id number] Blood 02/21/2025 12:0 9 PM EDT Diane Phalen FRONT OFFICE DIRECTOR POINT OF CARE TEST ENTER/EDIT ORDERABLES Final Result * POCT Rapid RSV WALLS ID NOW (02/21/2025 12:09 PM EDT) Pathologist [facility] RSV Rapid Ag POC Negative Negative Comment:Lana spencer ssed QC Media Lot # [id number] Lot# Expiration Date ,025 Swab 02/21/2025 12:0 9 PM EDT Diane Phalen FRONT OFFICE DIRECTOR POINT OF CARE TEST ENTER/EDIT ORDERABLES Final Result * POCT Rapid Influenza B OSOM (02/21/2025 12:07 PM EDT) Pathologist [facility] Rapid Influenza B Ag Negative Negative, Indeterminate Comment:Lana tannerd QC Media Lot # [id number] Lot# Expiration Date ,025 Swab 02/21/2025 12:0 7 PM EDT Diane Phalen FRONT OFFICE DIRECTOR POINT OF CARE TEST ENTER/EDIT ORDERABLES Final Result * POCT Rapid Influenza A OSOM (02/21/2025 12:01 PM EDT) [facility] Rapid Influenza A Ag Negative Negative, Indeterminate Comment:Lana spencer ssed QC Media Lot # [id number] Lot# Expiration Date ,025 Swab Nasopharyngeal structure / Unknown 02/21/2025 12:01 PM EDT us Diane Phalen FRONT OFFICE DIRECTOR POINT OF CARE TEST ENTER/EDIT ORDERABLES Final Result documented in this encounter Visit Diagnoses Diagnosis Viral syndrome- Primary Unspecified viral infection, in conditions classified elsewhere and of unspecified site documented in this encounter Additional Health Concerns Assessment Noted Time PHQ-9 Depression Total Score: 0 03/07/20 1:43 PM EDT documented as of this encounter Care Teams Fire Captain Relationship Specialty Start Date End Date Noelle Sargent MD [address] [place] [id number] PCP - General Family Medicine 02/07/23 documented as of this encounter
--- OUTSIDE RECORDS SUMMARY | 2025-02-21 17:59 | XMS_ITS | Encounter Summary ---
Author Organization [employer] Address [address] [facility] 7[address] [place] [address] Care Team Providers Care Solar Pv Installer Name Role Phone Noelle Sargent MD Primary Care Provider [phone] Reason for Visit * Reason Onset Date Comments Nurse Triage 02/21/2025 Encounter Details Date Type Department Care Team ([facility] st Contact Info) Description 02/21/2025 Telephone [facility] MEDICINE [address] [place] [address] Noelle Sargent MD [address] [place] [address] Nurse Triage Social History Tobacco Use Types Packs/Day Years [...] PM EDT documented as of this encounter Miscellaneous Notes * Telephone Encounter - Lacey Jurado RN - 02/21/2025 9:50 AM EDT Triage call Pt reports cough and fever for over a week now. Pt reports cough is productive with green colored sputum. Fever of 101 reduced well with tylenol. Other sx are nasal congestion and drainage, body aches, tiredness. Pt is drinking adequate liquids. Pt requests to see provider. ASK apt Mallorie Bush today at 1100am. [facility]. Pt agrees with disposition and home care reviewed. Insurance is verified as active prior to booking. Protocol Used: Cough (Adult) Protocol-Based Disposition: See in Office or Video Visit Today or Tomorrow Video visit not offered Positive Triage Question: * Patient wants to be seen * All higher-acuity triage questions were negative Care Advice Discussed: * Reassurance and Education - Cough * Prevent Dehydration * Fever Medicines * Reasons To Call Back - Difficulty breathing - Cough lasts more than 3 weeks - Fever lasts more than 3 days - You become worse * Telephone Encounter - Schuyler Rojo - 02/21/2025 9:31 AM EDT Symptoms: Cough, Fever Outcome: Transfer to a nurse or provider NOW! Reason: Can't stand (unless normally can't stand) The caller accepted this outcome. Contact pt at [phone] documented in this encounter Plan of Treatment Not on file documented as of this encounter Visit Diagnoses Not on filedocumented in this encounter Additional Health Concerns Assessment Noted Time PHQ-9 Depression Total Score: 0 03/07/20 1:43 PM EDT documented as of this encounter Care Teams Solar Pv Installer Relationship Specialty Start Date End Date Noelle Sargent MD [address] [place] [address] PCP - General Family Medicine 02/07/23 documented as of this encounter
--- OUTSIDE RECORDS SUMMARY | 2025-02-21 17:59 | XMS_ITS | Encounter Summary ---
Author Organization [employer] Address [address] [facility] 7 [place] [address] Care Team Providers Care Director Of Purchasing Name Role Phone Noelle Sargent MD Primary Care Provider [phone] Reason for Visit * Reason Onset Date Comments Appointment Request 11/25/2024 Encounter Details Date Type Department Care Team ([facility] st Contact Info) Description 11/25/2024 Telephone [facility] CHC MED & PEDS [address] [place], [place] [phone] Noelle Sargent MD [address] [place] [address] Appointment Request Social History Tobacco Use Types Packs/Day Years [...] encounter Miscellaneous Notes * Telephone Encounter - Aliza Tripathi - 11/25/2024 12:44 PM EST Tc from pt would like to get labs done . States is concern about her potassium and would also like to schedule a physical . Please call pt to clarify. documented in this encounter Plan of Treatment Not on file documented as of this encounter Visit Diagnoses Not on filedocumented in this encounter Additional Health Concerns Assessment Noted Time PHQ-9 Depression Total Score: 0 03/07/20 23 1:43 PM EDT documented as of this encounter Care Teams Director Of Purchasing Relationship Specialty Start Date End Date Noelle Sargent MD [address] [place] [address] PCP - General Family Medicine 02/07/23 documented as of this encounter
[2025-02-22 12:40] LABS: Adenovirus PCR Not Detected (Not Detect.); Bordetella parapertussis PCR Not Detected (Not Detect.); Bordetella pertussis PCR Not Detected (Not Detect.); Chlamydia pneumoniae PCR Not Detected (Not Detect.); Coronavirus 229E PCR Not Detected (Not Detect.); Coronavirus HKU1 PCR Not Detected (Not Detect.); Coronavirus NL63 PCR Not Detected (Not Detect.); Coronavirus OC43 PCR Not Detected (Not Detect.); Human metapneumovirus PCR Not Detected (Not Detect.); Influenza A PCR Not Detected (Not Detect.); Influenza B PCR Not Detected (Not Detect.); Mycoplasma pneumoniae PCR Not Detected (Not Detect.); Parainfluenza 1 PCR Not Detected (Not Detect.); Parainfluenza 2 PCR Not Detected (Not Detect.); Parainfluenza 3 PCR Not Detected (Not Detect.); Parainfluenza 4 PCR Not Detected (Not Detect.); RSV PCR Not Detected (Not Detect.); Rhino/Enterovirus PCR Not Detected (Not Detect.)
[2025-02-22 13:24] LABS: Influenza A H1 PCR Not Detected (Not Detect.); Influenza A H1-2009 PCR Not Detected (Not Detect.); Influenza A H3 PCR Not Detected (Not Detect.); SARS-CoV-2 PCR Not Detected (Not Detect.)
== END 2025-02-21 16:23 | disposition home or self-care (01) ==
LOC: HO.CHCLNP 16:22
PROVIDERS: Visit Provider Registered Nurse
DX: B34.9 Viral infection, unspecified (principal)
CPT/HCPCS: 87633

== ENCOUNTER 2025-02-23 08:57 | Outpatient (REF) | payer BC, SELFPAY ==
--- OUTSIDE RECORDS SUMMARY | 2025-02-24 09:07 | XMS_ITS | Encounter Summary ---
Author Organization [employer] Address [address] [facility] 7t [place] [address] Care Team Providers Care Marketing Reps [employer] Entertainment Name Role Phone Noelle Sargent MD Primary Care Provider [phone] Encounter Details Date Type Department Care Team ([facility] Contact Info) Description 02/21/2025 11:00 AM EDT Office Visit [facility] MED & PEDS [address] [place], [place] [phone] Diane Bush, MARY [address] [place] [address] Viral syndrome (Primary Dx) Social History Tobacco [...] Covid-19 BinaxNOW (02/21/2025 12:09 PM EDT) Pathologist [facility] Rapid COVID Ag Negative Comment:Lana tannerd QC Media Lot # [id number] Lot# Expiration Date [id number] Blood 02/21/2025 12:0 9 PM EDT Diane Phalen PURCHASING ADMINISTRATOR POINT OF CARE TEST ENTER/EDIT ORDERABLES Final Result * POCT Rapid RSV WALLS ID NOW (02/21/2025 12:09 PM EDT) Pathologist [facility] RSV Rapid Ag POC Negative Negative Comment:Lana spencer ssed QC Media Lot # [id number] Lot# Expiration Date ,025 Swab 02/21/2025 12:0 9 PM EDT Diane Phalen PURCHASING ADMINISTRATOR POINT OF CARE TEST ENTER/EDIT ORDERABLES Final Result * POCT Rapid Influenza B OSOM (02/21/2025 12:07 PM EDT) Pathologist [facility] Rapid Influenza B Ag Negative Negative, Indeterminate Comment:Lana tannerd QC Media Lot # [id number] Lot# Expiration Date ,025 Swab 02/21/2025 12:0 7 PM EDT Diane Phalen PURCHASING ADMINISTRATOR POINT OF CARE TEST ENTER/EDIT ORDERABLES Final Result * POCT Rapid Influenza A OSOM (02/21/2025 12:01 PM EDT) [facility] Rapid Influenza A Ag Negative Negative, Indeterminate Comment:Lana spencer ssed QC Media Lot # [id number] Lot# Expiration Date ,025 Swab Nasopharyngeal structure / Unknown 02/21/2025 12:01 PM EDT us Diane Phalen PURCHASING ADMINISTRATOR POINT OF CARE TEST ENTER/EDIT ORDERABLES Final Result documented in this encounter Visit Diagnoses Diagnosis Viral syndrome- Primary Unspecified viral infection, in conditions classified elsewhere and of unspecified site documented in this encounter Additional Health Concerns Assessment Noted Time PHQ-9 Depression Total Score: 0 03/07/20 1:43 PM EDT documented as of this encounter Care Teams Marketing Reps [employer] Entertainment Relationship Specialty Start Date End Date Noelle Sargent MD [address] [place] [id number] PCP - General Family Medicine 02/07/23 documented as of this encounter
--- OUTSIDE RECORDS SUMMARY | 2025-02-24 09:07 | XMS_ITS | Clinical Summary ---
Author Organization [employer] Address [address] [facility] 7t [place] [address] Care Team Providers Care Dice Manager Name Role Phone Noelle Sargent MD Primary Care Provider [phone] Allergies Active Allergy Reactions Criticality Noted Date Comments Chlorthalidone Other 10/21/2023 Severe hypoK with chlorthalidone Codeine Hives 03/07/2023 Erythromycin Hives,Itching 03/07/2023 Medications FREESTYLE LITE test strip Use 2x/dayUse as instructed 100 each 3 02/26/20 23 Active Lancets Ultra Thin 30G misc 1 each 3 times daily. 100 each 1 02/26/20 23 Active acetaminophen (Tylenol) 500 MG tablet Take 2 tablets (1,000 mg) by mouth every 6 (six) hours if needed for moderate pain or fever for up to 25 doses. 50 tablet 02/26/20 23 Active irbesartan (Avapro) 300 MG tablet Take 1 tablet (300 mg) by mouth at bedtime. 90 tablet 1 07/04/20 23 Active rosuvastatin (Crestor) 40 MG tablet Take 1 tablet (40 mg) by mouth in the morning. 90 tablet 1 07/04/20 23 Active glimepiride (Amaryl) 2 MG tablet TAKE 1 TABLET BY MOUTH BEFORE BREAKFAST 90 tablet 1 03/01/20 24 Active celecoxib (CeleBREX) 200 MG capsule TAKE 1 CAPSULE BY MOUTH TWICE A DAY 180 capsule 1 05/03/20 24 Active pantoprazole (ProtoNix) 40 MG EC tablet TAKE ONE TABLET BY MOUTH EVERY DAY BEFORE BREAKFAST 90 tablet 1 10/18/20 24 Active amLODIPine (Norvasc) 10 MG tablet TAKE 1 TABLET BY MOUTH EVERY MORNING 90 tablet 1 11/26/19 25 Active levothyroxine (Synthroid, Levoxyl) 100 MCG tablet TAKE 1 TABLET BY MOUTH BEFORE BREAKFAST 90 tablet 1 11/26/19 25 Active amoxicillin-cl avulanate (Augmentin) 875-125 MG tablet Take 1 tablet by mouth 2 times daily for 5 days. 10 tablet 02/22/20 25 025 Active albuterol 108 (90 Base) MCG/ACT inhaler Inhale 2 puffs Every 4-6 hours as needed for wheezing or shortness of breath. 18 g 02/22/20 25 026 Active citalopram (CeleXA) 10 MG tablet TAKE 1 TABLET BY MOUTH IN THE MORNING 90 tablet 1 02/23/20 25 Active citalopram (CeleXA) 10 MG tablet TAKE 1 TABLET BY MOUTH IN THE MORNING 90 tablet 1 08/26/20 24 025 Discontinued Active Problems Problem Noted Date Diagnosed Date [...] 02/25/2023 Fibromyalgia 02/25/2023 History of laparoscopic cholecystectomy 04/04/20 23 History of right cataract extraction 02/25/2023 [...] Encounters Date Type Department Care Team Description 02/23/2025 Telephone [facility] [address] [place] [address] Noelle Sargent MD Results 02/22/2025 Refill [facility] [address] [place] [address] Noelle Sargent MD 02/21/2025 11:00 AM EDT Office Visit [facility] [address] [place] [address] Diane Bush FNP Viral syndrome (Primary Dx) 02/21/2025 Orders Only [facility] [address] [place] [address] Diane Bush FNP 02/21/2025 Travel 02/21/[address] [phone] Noelle Sargent MD Nurse Triage 12/14/2024 Telephone [facility] [address] [place], [place] [phone] Noelle Sargent MD 11/30/2024 Telephone [facility] [address] [place] [address] Noelle Sargent MD from Last 3 Months [...] Foot Exam 07/04/2024 07/04/2023 Diabetes: Hemoglobin A1C 07/05/202401/05/2 024, 10/21/2023, 10/10/2023, Additional history exists Tobacco [...] 02/21/2025 12:0 1 PM EDT Viral syndrome RESPIRATORY VIRAL PANEL PCR Routine 02/21/2025 11:45 AM EDT POCT GLYCATED HEMOGLOBIN, TOTAL Routine 01/05/2024 9:28 AM EST Type 2 diabetes mellitus without complication, without long-term current use of insulin ([facility]) HP LINK DIABETIC FOOT EXAM Routine 07/04/2023 COLOGUARD COLON CANCER SCREENING (EXTERNAL RESULTS ONLY) Routine 04/08/2023 2:35 PM EDT from Last 3 Months or Most Recently Relevant to Health Maintenance Results * POCT Rapid RSV WALLS ID NOW (02/21/2025 12:09 PM EDT) RSV Rapid Ag POC Negative Negative Comment:Internal kathe tannerd QC Media Lot # [id number] Lot# Expiration Date [id number] Swab 02/21/2025 12:0 9 PM EDT us Diane Bush ARRANGING FUNERAL DIRECTOR POINT OF CARE TEST ENTER/EDIT ORDERABLES Final Result * POCT Rapid Covid-19 BinaxNOW (02/21/2025 12:09 PM EDT) [facility] Rapid COVID Ag Negative Comment:Lana lisa QC Media Lot # [id number] Lot# Expiration Date [id number] Blood 02/21/2025 12:0 9 PM EDT us Diane uBsh ARRANGING FUNERAL DIRECTOR POINT OF CARE TEST ENTER/EDIT ORDERABLES Final Result * POCT Rapid Influenza B OSOM (02/21/2025 12:07 PM EDT) [facility] Rapid Influenza B Ag Negative Negative, Indeterminate Comment:Lana lisa QC Media Lot # [id number] Lot# Expiration Date , Swab 02/21/2025 12:0 7 PM EDT Diane Bush ARRANGING FUNERAL DIRECTOR POINT OF CARE TEST ENTER/EDIT ORDERABLES Final Result * POCT Rapid Influenza A OSOM (02/21/2025 12:01 PM EDT) [facility] Rapid Influenza A Ag Negative Negative, Indeterminate Comment:Lana lisa QC Media Lot # [id number] Lot# Expiration Date , Swab Nasopharyngeal structure / Unknown 02/21/2025 12:01 PM EDT us Diane Bush ARRANGING FUNERAL DIRECTOR POINT OF CARE TEST ENTER/EDIT ORDERABLES Final Result * Respiratory Viral Panel PCR (02/21/2025 11:45 AM EDT) [facility] Adenovirus PCR Not Detected Not Detect. [facility] Bordetella pertussis PCR Not Detected Not Detect. [facility] Comment:Interpret results wi th caution. If B. pertussis isspecifically suspected, additional testing using analternate method is recommended. Bordetella parapertussis PCR Not Detected Not Detect. [facility] Chlamydia pneumoniae PCR Not Detected Not Detect. [facility] Coronavirus 229E PCR Not Detected Not Detect. [facility] Coronavirus HKU1 PCR Not Detected Not Detect. [facility] Coronavirus NL63 PCR Not Detected Not Detect. [facility] Coronavirus OC43 PCR Not Detected Not Detect. [facility] SARS-CoV-2 PCR Not Detected Not Detect. [facility] Comment:SARS-CoV-2 not detec parveen by real-time RT-PCR.Note: If clinical suspicion for Sars-CoV-2 is high, continueto maintain precautions and consider repeat testing.Test results should be interpreted in the context ofclinical findings and other laboratory data.Rare polymorphisms exist that could lead to false-negativeor false-positive results. If results do not match theclinical findings, additional testing should be considered.Results reported to [facility].This test has been authorized by the FDA under the EmergencyUse Authorization (EUA) for use by authorized laboratories. Influenza A PCR Not Detected Not Detect. [facility] Influenza A Subtype H1 Not Detected Not Detect. [facility] Influenza A H1-2009 PCR Not Detected Not Detect. [facility] Influenza A Subtype H3 Not Detected Not Detect. [facility] Influenza B PCR Not Detected Not Detect. [facility] Human metapneumovirus PCR Not Detected Not Detect. [facility] Rhino/Enterovirus PCR Not Detected Not Detect. [facility] Mycoplasma pneumoniae PCR Not Detected Not Detect. [facility] Parainfluenza 1 PCR Not Detected Not Detect. [facility] Parainfluenza 2 PCR Not Detected Not Detect. [facility] Parainfluenza 3 PCR Not Detected Not Detect. [facility] Parainfluenza 4 PCR Not Detected Not Detect. [facility] RSV PCR Not Detected Not Detect. [facility] Resp Panel NA Note See Note [facility] Comment:All results must be correlated with clinical findings.Negative results should not be used as the sole basis fordiagnosis, treatment, or other management decisions.A negative result does not exclude the possibility of viralor bacterial infection. Negative results may occur from thepresence of sequence variants in the region targeted by theassay, the presence of inhibitors, an infection caused by anorganism not detected by the panel, or lower respiratorytract infections that are not detected by a nasopharyngealswab specimen. Test results may also be affected byconcurrent antiviral/antibacterial therapy or levels oforganism in the specimen that are below the limit ofdetection for this test.This assay is performed by Multiplexed PCR, utilizing [employer] Film Array. 02/21/2025 11:4 5 AM EDT 02/21/2025 6:02 PM EDT Diane Bush [facility] LAB BLOOD ORDERABLES Final Res ult [facility] [address] [place] [phone] * (ABNORMAL) POCT HGB A1C (01/05/2024 9:28 AM EST) Hemoglobin A1C 6.2(A) 4.0 - 6.0 % QC Media Lot # [id number] Lot# Expiration Date Blood 01/05/2024 9:28 AM EST Noelle Sargent MD POINT OF CARE TEST ENTER/EDIT ORDERABLES Final Result * HP Diabetic Foot Exam (07/04/2023) Narrative Noelle Sargent MD - 07/04/2023 Diabetic Foot Exam Inspection: [...] Affect: Mood normal. ? Behavior: Behavior normal. us Noelle Sargent MD HEALTH MAINTENANCE Final Resu lt * Cologuard Colon Cancer Screening (04/08/2023 2:35 PM EDT) Cologuard Cancer Screen Negative Comment:Neg, rpt in 2 yrs Stool 04/08/2023 2:35 PM EDT Narrative Noelle Sargent MD - 04/08/2023 2:35 PM EDT Negative rpt in 2 yrs Noelle Sargent MD POINT OF CARE TEST ENTER/EDIT ORDERABLES Final Result from Last 3 Months or Most Recently Relevant to Health Maintenance Insurance [facility] H[facility] Care Teams Dice Manager Relationship Specialty Start Date End Date Noelle Sargent MD [address] [place] [phone] PCP - General Family Medicine 02/07/23
--- OUTSIDE RECORDS SUMMARY | 2025-02-24 09:07 | XMS_ITS | Encounter Summary ---
Author Organization [employer] Address [address] [facility] 7 [place] [address] Care Team Providers Care Marketing Strategy Manager Name Role Phone Noelle Sargent MD Primary Care Provider [phone] Reason for Visit * Reason Onset Date Comments Appointment Request 11/25/2024 Encounter Details Date Type Department Care Team ([facility] st Contact Info) Description 11/25/2024 Telephone [facility] CH[facility] MED & PEDS [address] [place], [place] [phone] Noelle Sargent MD [address] [place] [address] Appointment Request Social History Tobacco Use Types Packs/Day Years Used Date Smoking Tobacco: Never Passive Smoke Exposure: Never Smokeless Tobacco: Never Alcohol Use Standard Drinks/Week Comments Yes 1 (1 standard drink = 0.6 oz pur e alcohol) Depression Answer Date Recorded Patient Health Questionnaire-9 Score 0 03/07/2023 Housing Stability Answer Date Recorded What is your housing situation today? I have maien monte 09/09/[address] you [...] as of this encounter Care Teams Marketing Strategy Manager Relationship Specialty Start Date End Date Noelle Sargent MD [address] [place] [address] PCP - General Family Medicine 02/07/23 documented as of this encounter
--- OUTSIDE RECORDS SUMMARY | 2025-02-24 09:07 | XMS_ITS | Encounter Summary ---
Author Organization [employer] Address [address] [facility] 7t [place] [address] Care Team Providers Care Divorce Mediator Name Role Phone Noelle Sargent MD Primary Care Provider [phone] Encounter Details Date Type Department Care Team ([facility] st Contact Info) Description 02/21/2025 Orders Only [facility] CH[facility] MED & PEDS [address] [place], [place] [phone] Diane Bush FNP [address] [place] [address] Social History Tobacco Use Types Packs/Day Years [...] on file documented as of this encounter Procedures Procedure Name Priority Date/Time Associated Diagnosis Comments RESPIRATORY VIRAL PANEL PCR Routine 02/21/2025 11:45 AM EDT documented in this encounter Results * Respiratory Viral Panel PCR (02/21/2025 11:45 AM EDT) Adenovirus PCR Not Detected Not Detect. [facility] Bordetella pertussis PCR Not Detected Not Detect. [facility] Comment:Interpret results wi th caution. If B. pertussis isspecifically suspected, additional testing using analternate method is recommended. Bordetella parapertussis PCR Not Detected Not Detect. [facility] Chlamydia pneumoniae PCR Not Detected Not Detect. [facility] Coronavirus 229E PCR Not Detected Not Detect. [facility] Coronavirus HKU1 PCR Not Detected Not Detect. [facility] Coronavirus NL63 PCR Not Detected Not Detect. [facility] Coronavirus OC43 PCR Not Detected Not Detect. [facility] SARS-CoV-2 PCR Not Detected Not Detect. [facility] Comment:SARS-CoV-2 not detec parveen by real-time [...] Influenza A PCR Not Detected Not Detect. [facility] Influenza A Subtype H1 Not Detected Not Detect. [facility] Influenza A H1-2009 PCR Not Detected Not Detect. [facility] Influenza A Subtype H3 Not Detected Not Detect. [facility] Influenza B PCR Not Detected Not Detect. [facility] Human metapneumovirus PCR Not Detected Not Detect. [facility] Rhino/Enterovirus PCR Not Detected Not Detect. [facility] Mycoplasma pneumoniae PCR Not Detected Not Detect. [facility] Parainfluenza 1 PCR Not Detected Not Detect. [facility] Parainfluenza 2 PCR Not Detected Not Detect. [facility] Parainfluenza 3 PCR Not Detected Not Detect. [facility] Parainfluenza 4 PCR Not Detected Not Detect. [facility] RSV PCR Not Detected Not Detect. [facility] Resp Panel NA Note See Note [facility] Comment:All results must be correlated with [...] assay is performed by Multiplexed PCR, utilizing [employer] Array. 02/21/2025 11:4 5 AM EDT 02/21/2025 6:02 PM EDT us Diane Bush CHIPS SCREEN TENDER LAB BLOOD ORDERABLES Final Res ult [facility] [address] [place] [address] [phone] documented in this encounter Visit Diagnoses Not on filedocumented in this encounter Additional Health Concerns Assessment Noted Time PHQ-9 Depression Total Score: 0 03/07/20 1:43 PM EDT documented as of this encounter Care Teams Divorce Mediator Relationship Specialty Start Date End Date Noelle Sargent MD [address] [place] [address] PCP - General Family Medicine 02/07/23 documented as of this encounter
--- OUTSIDE RECORDS SUMMARY | 2025-02-24 09:07 | XMS_ITS | Encounter Summary ---
Author Organization [employer] Address [address] [facility] 7 [place] [address] Care Team Providers Care Admission Liaison Name Role Phone Noelle Sargent MD Primary Care Provider [phone] Reason for Visit * Reason Comments Med Refill Encounter Details Date Type Department Care Team ([facility] st Contact Info) Description 06/25/2023 Refill [facility] MED & PEDS [address] [place] [address] Aline Aaron MD [address] [place] [address] Social History Tobacco Use Types Packs/Day Years [...] documented as of this encounter Care Teams Admission Liaison Relationship Specialty Start Date End Date Noelle Sargent MD [address] [place] [address] PCP - General Family Medicine 02/07/23 documented as of this encounter
--- OUTSIDE RECORDS SUMMARY | 2025-02-24 09:07 | XMS_ITS | Encounter Summary ---
Author Organization [employer] Address [address] [facility] 7t [place] [address] Care Team Providers Care Bead Picker Name Role Phone Noelle Sargent MD Primary Care Provider [phone] Reason for Visit * Reason Comments Med Refill Encounter Details Date Type Department Care Team ([facility] st Contact Info) Description 02/22/2025 Refill [facility] MED & PEDS [address] [place], [place] [phone] Noelle Sargent MD [address] [place] [address] Social History Tobacco Use Types Packs/Day Years [...] documented as of this encounter Care Teams Bead Picker Relationship Specialty Start Date End Date Noelle Sargent MD [address] [place] [id number] PCP - General Family Medicine 02/07/23 documented as of this encounter
--- OUTSIDE RECORDS SUMMARY | 2025-02-24 09:07 | XMS_ITS | Encounter Summary ---
Author Organization [employer] Address [address] [facility] 7t [place] [address] Care Team Providers Care Training Generalist Name Role Phone Noelle Sargent MD Primary Care Provider Reason for Visit * Reason Onset Date Comments Nurse Triage 02/21/2025 Encounter Details Date Type Department Care Team ([facility] st Contact Info) Description 02/21/2025 Telephone [facility] [address] [place] [address] Noelle Sargent MD [address] [place] [address] Nurse Triage Social History Tobacco Use Types [...] ASK apt Mallorie Bush today at 1100am. [facility]. Pt agrees with disposition and home [...] caller accepted this outcome. Contact pt at [phone] documented in this encounter Plan of Treatment Not on file documented as of this encounter Visit Diagnoses Not on filedocumented in this encounter Additional Health Concerns Assessment Noted Time PHQ-9 Depression Total Score: 0 03/07/20 1:43 PM EDT documented as of this encounter Care Teams Training Generalist Relationship Specialty Start Date End Date Noelle Sargent MD [address] [place] [address] PCP - General Family Medicine 02/07/23 documented as of this encounter
--- OUTSIDE RECORDS SUMMARY | 2025-02-24 09:07 | XMS_ITS | Encounter Summary ---
Author Organization [employer] Address [address] [facility] 7 [place] [address] Care Team Providers Care Cycle Touring Guide Name Role Phone Noelle Sargent MD Primary Care Provider [phone] Reason for Visit * Reason Onset Date Comments Results 02/23/2025 Encounter Details Date Type Department Care Team ([facility] Contact Info) Description 02/23/2025 Telephone [facility] CH[facility] MED & PEDS [address] [place], [place] [phone] Noelle Sargent MD [address] [place] [address] Results Social History Tobacco Use Types Packs/Day Years [...] encounter Miscellaneous Notes * Telephone Encounter - Luis A Watson [place] - 02/23/2025 2:58 PM EDT Call pt to let her know message below. No answer leave a voice-mail to call clinic back. If pt call back please let her know message below Please call to let her know that the results sent to the lab were negative for additional infections tested. Hope she is feeling better!' * Telephone Encounter - Luis A Watson MA - 02/23/2025 2:58 PM EDT ----- Message from Diane Bush sent at 02/22/2025 6:06 PM EDT ----- Please call to let her know that the results sent to the lab were negative for additional infections tested. Hope she is feeling better! documented in this encounter Plan of Treatment Not on file documented as of this encounter Visit Diagnoses Not on filedocumented in this encounter Additional Health Concerns Assessment Noted Time PHQ-9 Depression Total Score: 0 03/07/20 23 1:43 PM EDT documented as of this encounter Care Teams Cycle Touring Guide Relationship Specialty Start Date End Date Noelle Sargent MD [address] [place] [phone] PCP - General Family Medicine 02/07/23 documented as of this encounter
--- OUTSIDE RECORDS SUMMARY | 2025-02-24 09:07 | XMS_ITS | Encounter Summary ---
Author Organization [employer] Address [address] [facility] 7t [place] [address] Care Team Providers Care Postal Service Window Clerk Name Role Phone Noelle Sargent MD Primary Care Provider [phone] Encounter Details Date Type Department Care Team [...] documented as of this encounter Care Teams Postal Service Window Clerk Relationship Specialty Start Date End Date Noelle Sargent MD [address] [place] [address] PCP - General Family Medicine 02/07/23 documented as of this encounter
--- OUTSIDE RECORDS SUMMARY | 2025-02-24 09:07 | XMS_ITS | Encounter Summary ---
Author Organization [employer] Address [address] [facility] 7 [place] [address] Care Team Providers Care Marketing And Promotions Manager Name Role Phone Noelle Sargent MD Primary Care Provider [phone] Reason for Visit * Reason Comments Med Refill Encounter Details Date Type Department Care Team ([facility] st Contact Info) Description 06/20/2023 Refill [facility] MED & PEDS [address] [place] [address] Aline Aaron MD [address] [place] [address] Social History Tobacco Use Types Packs/Day Years [...] as of this encounter Care Teams Marketing And Promotions Manager Relationship Specialty Start Date End Date Noelle Sargent MD [address] [place] [address] PCP - General Family Medicine 02/07/23 documented as of this encounter
== END 2025-02-23 08:58 | disposition home or self-care (01) ==
LOC: HO.HOSX 08:57
PROVIDERS: Visit Provider Orthopaedic Surgery
DX: Z13.89 Encounter for screening for other disorder (principal)

== ENCOUNTER 2025-03-09 09:23 | Outpatient (AMB) | payer BC, SELFPAY ==
--- NOTE | 2025-03-09 09:25 | MHC.OFFVIS ---
Vital Signs 03/09/25 09:33 Height 5 ft 4 in Weight 200 lb BMI 34.3 Intake Visit Reasons: Right knee discomfort Intake Note: Autumn is a 74 year old female who presents with complaints of mild intermittent discomfort in her right knee after undergoing right total knee replacement surgery on 01/26/2024. She continues with her home exercise program. She denies any fevers or chills. She does not take any medicines for her discomfort. Allergies codeine Allergy (Intermediate, Verified 03/09/25 09:33) Hives erythromycin base Allergy (Intermediate, Verified 03/09/25 09:33) Hives hydrocodone [Vicodin] Allergy (Intermediate, Verified 03/09/25 09:33) Hives latex Allergy (Intermediate, Verified 03/09/25 09:33) dermatitis flare-ups Medication List - Last Reconciled 03/09/25 by Harshal Soares MD acetaminophen 650 mg (2 x 325 mg) PO Q6H PRN 30 days amlodipine 10 mg PO DAILY aspirin 325 mg PO BID 42 days celecoxib 200 mg PO BID 30 days citalopram 10 mg PO DAILY glimepiride 2 mg PO DAILY irbesartan 300 mg PO BEDTIME levothyroxine 100 mcg PO DAILY@0600 pantoprazole 40 mg PO DAILY@0630 rosuvastatin 40 mg PO DAILY walker Folding front wheeled walker [facility] Medical History Arthritis Anxiety Family history of sickle cell crisis Low serum potassium Hypothyroid Other and unspecified hyperlipidemia Essential hypertension Type 2 diabetes mellitus with unspecified complications Surgical History Hx of oral surgery Hx of left cataract extraction H/O colonoscopy Hx laparoscopic cholecystectomy Hx of appendectomy Family History Mother CHF (congestive heart failure) Father No problems noted. 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 Physical Exam Vital Signs: BMI result Body Mass Index 34.3 Const Other: Well-nourished well-developed very friendly female awake alert and oriented x3 in no acute distress Extrem Other: Bilateral lower extremity examination shows good capillary refill, no skin lesions noted, normal sensation light touch Right knee examination shows that the surgical incision is well healed, no erythema, full active extension and flexion to 120 degrees, her patella tracks well Results Reviewed Results Reviewed: X-rays of the patient's right knee taken today show a total knee arthroplasty in good position with no signs of loosening, no acute bony abnormalities Assessment & Plan Assessment & Plan (1) Right knee pain: Code(s): M25.561 - Pain in right knee Category: Medical Plan Ms. Trevizo continues to do very well after undergoing right total knee replacement surgery on 01/26/2024. She will continue with her home exercise program. She does know to take antibiotics before any dental work. She will contact me prior to her annual follow-up appointment should any questions or concerns arise. Feel free to call me at any time should questions regarding her orthopedic management arise. I spent 20 minutes in reviewing the patient's records and imaging studies, seeing the patient and documenting in the medical record. Orders: Orders XR knee RT 3V Today M25.561 - Pain in right knee Coding Level of Care Code Est Pt Level 3 (07145) Complex EM visit Add On G2211 Diagnoses Right knee pain M25.561
[2025-03-09 09:33] VITALS: BMI 34.3
--- OUTSIDE RECORDS SUMMARY | 2025-03-09 10:18 | XMS_ITS | Encounter Summary ---
Author Organization [employer] Address [address] [facility] 7 [place] [address] Care Team Providers Care Field Map Editor Name Role Phone Noelle Sargent MD Primary Care Provider [phone] Reason for Visit * Reason Onset Date Comments Appointment Request 11/25/2024 Encounter Details Date Type Department Care Team ([facility] st Contact Info) Description 11/25/2024 Telephone [facility] CH[facility] MED & PEDS [address] [place], [place] [id number] Noelle Sargent MD [address] [place] [address] Appointment Request Social History Tobacco Use Types [...] documented as of this encounter Care Teams Field Map Editor Relationship Specialty Start Date End Date Noelle Sargent MD [address] [place] [address] PCP - General Family Medicine 02/07/23 documented as of this encounter
--- OUTSIDE RECORDS SUMMARY | 2025-03-09 10:18 | XMS_ITS | Encounter Summary ---
Author Organization [employer] Address [address] [facility] 7t [place] [address] Care Team Providers Care Ribbon Inker Name Role Phone Noelle Sargent MD Primary Care Provider [phone] Reason for Visit * Reason Onset Date Comments Nurse Triage 02/21/2025 Encounter Details Date Type Department Care Team ([facility] st Contact Info) Description 02/21/2025 Telephone [facility] MEDICINE [address] [place] [address] Noelle Sargent MD [address] [place] [address] Nurse Triage Social History Tobacco Use Types [...] ASK apt Mallorie Bush today at 1100am. [facility]. Pt agrees with disposition and home care [...] caller accepted this outcome. Contact pt at [phone] documented in this encounter Plan of Treatment Not on file documented as of this encounter Visit Diagnoses Not on filedocumented in this encounter Additional Health Concerns Assessment Noted Time PHQ-9 Depression Total Score: 0 03/07/20 1:43 PM EDT documented as of this encounter Care Teams Ribbon Inker Relationship Specialty Start Date End Date Noelle Sargent MD [address] [place] [address] PCP - General Family Medicine 02/07/23 documented as of this encounter
--- OUTSIDE RECORDS SUMMARY | 2025-03-09 10:19 | XMS_ITS | Clinical Summary ---
Author Organization [employer] Address [address] [facility] 7t [place] [address] Care Team Providers Care Aircraft Systems Technician Name Role Phone Noelle Sargent MD Primary Care Provider [phone] Allergies Active Allergy Reactions Criticality Noted Date [...] BREAKFAST 90 tablet 1 11/26/19 25 Active albuterol 108 (90 Base) MCG/ACT inhalerIndicat ions:Bronchiti s Inhale 2 puffs Every 4-6 hours as needed for wheezing or shortness of breath. 18 g 02/22/20 25 026 Active citalopram (CeleXA) 10 MG tablet TAKE 1 TABLET BY MOUTH IN THE MORNING 90 tablet 1 02/23/20 25 Active citalopram (CeleXA) 10 MG tablet TAKE 1 TABLET BY MOUTH IN THE MORNING 90 tablet 1 08/26/20 24 025 Discontinued amoxicillin-cl avulanate (Augmentin) 875-125 MG tabletIndicati ons:Bronchitis Take 1 tablet by mouth 2 times daily for 5 days. 10 tablet 02/22/20 25 025 Active Problems Problem Noted Date Diagnosed Date [...] to monitor levels. GERD (gastroesophageal reflux disease) Hyperlipidemia 02/25/2023 Fibromyalgia 02/25/2023 History of laparoscopic [...] Type Department Care Team Description 02/23/2025 Telephone [facility] MED & PEDS [address] [place] [address] Noelle Sargent MD Results 02/22/[address] [facility] CHC MED & PEDS [address] [place] [address] Noelle Sargent MD 02/21/2025 11:00 AM EDT Office Visit [facility] MED & PEDS [address] [place] [address] Diane Bush FNP Bronchitis (Primary Dx) 02/21/2025 Orders Only [facility] MED & PEDS [address] [place] [address] Diane Bush FNP 02/21/2025 Travel 02/21/[address] [place] [address] Noelle Sargent MD Nurse Triage 12/14/[address] [facility] CHC MED & PEDS [address] [place] [address] Noelle Sargent MD from Last 3 Months [...] COVID ANTIGEN Routine 02/21/2025 12:09 PM EDT Bronchitis POCT RSV (ID NOW RAPID ANTIGEN) Routine 02/21/2025 12:09 PM EDT Bronchitis POCT INFLUENZA B Routine 02/21/2025 12:0 7 PM EDT Bronchitis POCT INFLUENZA A Routine 02/21/2025 12:0 1 PM EDT Bronchitis RESPIRATORY VIRAL PANEL PCR Routine 02/21/2025 11:45 AM EDT POCT GLYCATED HEMOGLOBIN, TOTAL Routine 01/05/2024 9:28 AM EST Type 2 diabetes mellitus without complication, without long-term current use of insulin ([facility]) HP LINK DIABETIC FOOT EXAM Routine 07/04/2023 COLOGUARD COLON CANCER SCREENING (EXTERNAL RESULTS ONLY) Routine 04/08/2023 2:35 PM EDT from Last 3 Months or Most Recently Relevant to Health Maintenance Results * POCT Rapid RSV WALLS ID NOW (02/21/2025 12:09 PM EDT) RSV Rapid Ag POC Negative Negative Comment:Internal kathe spencer ssed QC Media Lot # [id number] Lot# Expiration Date [id number] Swab 02/21/2025 12:0 9 PM EDT us Diane Bush FIELD FOREMAN POINT OF CARE TEST ENTER/EDIT ORDERABLES Final Result * POCT Rapid Covid-19 BinaxNOW (02/21/2025 12:09 PM EDT) [facility] Rapid COVID Ag Negative Comment:Lana tannerd QC Media Lot # [id number] Lot# Expiration Date [id number] Blood 02/21/2025 12:0 9 PM EDT us Diane Bush FIELD FOREMAN POINT OF CARE TEST ENTER/EDIT ORDERABLES Final Result * POCT Rapid Influenza B OSOM (02/21/2025 12:07 PM EDT) [facility] Rapid Influenza B Ag Negative Negative, Indeterminate Comment:Lana archuleta ny cirod [employer] Lot # [id number] Lot# Expiration Date ,025 Swab 02/21/2025 12:0 7 PM EDT us Diane Bush FIELD FOREMAN POINT OF CARE TEST ENTER/EDIT ORDERABLES Final Result * POCT Rapid Influenza A OSOM (02/21/2025 12:01 PM EDT) [facility] Rapid Influenza A Ag Negative Negative, Indeterminate Comment:Lana archuleta ny cirod [employer] Lot # [id number] Lot# Expiration Date ,025 Swab Nasopharyngeal structure / Unknown 02/21/2025 12:01 PM EDT us Diane Bush FIELD FOREMAN POINT OF CARE TEST ENTER/EDIT ORDERABLES Final Result * Respiratory Viral Panel PCR (02/21/2025 11:45 AM EDT) [facility] Adenovirus PCR Not Detected Not Detect. [facility] Bordetella pertussis PCR Not Detected Not Detect. [facility] Comment:Interpret results wi th caution. If B. pertussis isspecifically suspected, additional testing using analternate method is recommended. Bordetella parapertussis PCR Not Detected Not Detect. [facility] Chlamydia pneumoniae PCR Not Detected Not Detect. [facility] Coronavirus 229E PCR Not Detected Not Detect. [facility] Coronavirus HKU1 PCR Not Detected Not Detect. [facility] Coronavirus NL63 PCR Not Detected Not Detect. [facility] Coronavirus OC43 PCR Not Detected Not Detect. [facility] SARS-CoV-2 PCR Not Detected Not Detect. [facility] Comment:SARS-CoV-2 not detec parveen by real-time RT-PCR.Note: If clinical suspicion for Sars-CoV-2 is high, continueto maintain precautions and consider repeat testing.Test results should be interpreted in the context ofclinical findings and other laboratory data.Rare polymorphisms exist that could lead to false-negativeor false-positive results. If results do not match theclinical findings, additional testing should be considered.Results reported to [facility].This test has been authorized by the FDA under the EmergencyUse Authorization (EUA) for use by authorized laboratories. Influenza A PCR Not Detected Not Detect. [facility] Influenza A Subtype H1 Not Detected Not Detect. [facility] Influenza A H1-2009 PCR Not Detected Not Detect. [facility] Influenza A Subtype H3 Not Detected Not Detect. [facility] Influenza B PCR Not Detected Not Detect. [facility] Human metapneumovirus PCR Not Detected Not Detect. [facility] Rhino/Enterovirus PCR Not Detected Not Detect. [facility] Mycoplasma pneumoniae PCR Not Detected Not Detect. [facility] Parainfluenza 1 PCR Not Detected Not Detect. [facility] Parainfluenza 2 PCR Not Detected Not Detect. [facility] Parainfluenza 3 PCR Not Detected Not Detect. [facility] Parainfluenza 4 PCR Not Detected Not Detect. [facility] RSV PCR Not Detected Not Detect. [facility] Resp Panel NA Note See Note H [facility] Comment:All results must be correlated [...] assay is performed by Multiplexed PCR, utilizing [employer]. 02/21/2025 11:4 5 AM EDT 02/21/2025 6:02 PM EDT Diane Bush [facility] BLOOD ORDERABLES Final Res ult [facility] [address] [place] [phone] * (ABNORMAL) POCT HGB A1C (01/05/2024 [...] PM EDT Negative rpt in 2 yrs us Noelle Sargent MD POINT OF CARE TEST ENTER/EDIT ORDERABLES Final Result from Last 3 Months or Most Recently Relevant to Health Maintenance [facility] Care Teams Aircraft Systems Technician Relationship Specialty Start Date End Date Noelle Sargent MD [address] [place] [id number] PCP - General Family Medicine 02/07/23
--- OUTSIDE RECORDS SUMMARY | 2025-03-09 10:19 | XMS_ITS | Encounter Summary ---
Author Organization [employer] Address [address] [facility] [address] [place] [address] Care Team Providers Care Senior Clinical Consultant Name Role Phone Noelle Sargent MD Primary Care Provider [phone] Reason for Visit * Reason Comments Med Refill Encounter Details Date Type Department Care Team ([facility] st Contact Info) Description 06/25/2023 Refill [facility] CHC MED & PEDS [address] [place] [address] Aline Aaron MD [address] [place] [address] Social History Tobacco Use Types Packs/Day Years [...] documented as of this encounter Care Teams Senior Clinical Consultant Relationship Specialty Start Date End Date Noelle Sargent MD [address] [place] [address] PCP - General Family Medicine 02/07/23 documented as of this encounter
--- OUTSIDE RECORDS SUMMARY | 2025-03-09 10:19 | XMS_ITS | Encounter Summary ---
Author Organization [employer] Address [address] [facility] [address] [place] [address] Care Team Providers Care Engineering Group Manager Name Role Phone Noelle Sargent MD Primary Care Provider [phone] Reason for Visit * Reason Comments Med Refill Encounter Details Date Type Department Care Team ([facility] st Contact Info) Description 06/20/2023 Refill [facility] CHC MED & PEDS [address] [place] [address] Aline Aaron MD [address] [place] [address] Social History Tobacco Use Types Packs/Day Years [...] documented as of this encounter Care Teams Engineering Group Manager Relationship Specialty Start Date End Date Noelle Sargent MD [address] [place] [address] PCP - General Family Medicine 02/07/23 documented as of this encounter
== END 2025-03-09 09:56 | disposition home or self-care (01) ==
PROVIDERS: PCP Family Medicine; Visit Provider Orthopaedic Surgery
DX: M25.561 Pain in right knee (principal)
CPT/HCPCS: 99213

== ENCOUNTER → 2025-03-09 09:26 | Outpatient (BNV) | payer BC, SELFPAY | PROVIDERS: Visit Provider Radiology Diagnostic Radiology | DX: Z96.651 Presence of right artificial knee joint (principal) | CPT/HCPCS: 73562 ==

== ENCOUNTER 2025-03-09 11:05 | Outpatient (REF) | payer BC, SELFPAY ==
--- NOTE | ~2025-03-09 | XR_ITS ---
EXAMINATION: XR KNEE 3 VIEWS RIGHT HISTORY: M25.561 - Pain in right knee COMPARISON: There are no prior studies for comparison. FINDINGS: AP, lateral, and sunrise patellar views of the right knee are submitted. The patient is again noted to be status post right total knee arthroplasty. The orthopedic elements are in anatomic alignment. There is no radiographic evidence of loosening. There is no fracture or dislocation. There is no joint effusion. There is calcification of the popliteal artery. XR/XR knee RT 3V IMPRESSION: Status post right total knee arthroplasty. Electronically signed by: Hadley Ocampo MD 03/10/2025 07:59 AM EDT
--- OUTSIDE RECORDS SUMMARY | 2025-03-10 13:36 | XMS_ITS | Encounter Summary ---
Author Organization [employer] Address [address] [facility] [address] [place] [address] Care Team Providers Care Heel Caser Name Role Phone Noelle Sargent MD Primary Care Provider [phone] Reason for Visit * Reason Comments Med Refill Encounter Details Date Type Department Care Team ([facility] st Contact Info) Description 06/25/2023 Refill [facility] CHC MED & PEDS [address] [place] [address] Aline Aaron MD [address] [place] [address] Social History Tobacco Use Types Packs/Day Years [...] documented as of this encounter Care Teams Heel Caser Relationship Specialty Start Date End Date Noelle Sargent MD [address] [place] [address] PCP - General Family Medicine 02/07/23 documented as of this encounter
--- OUTSIDE RECORDS SUMMARY | 2025-03-10 13:36 | XMS_ITS | Encounter Summary ---
Author Organization [employer] Address [address] [facility] [address] [place] [address] Care Team Providers Care Pattern Puncher Name Role Phone Noelle Sargent MD Primary Care Provider [phone] Reason for Visit * Reason Comments Med Refill Encounter Details Date Type Department Care Team ([facility] st Contact Info) Description 06/20/2023 Refill [facility] CHC MED & PEDS [address] [place] [address] Aline Aaron MD [address] [place] [address] Social History Tobacco Use Types Packs/Day Years [...] documented as of this encounter Care Teams Pattern Puncher Relationship Specialty Start Date End Date Noelle Sargent MD [address] [place] [address] PCP - General Family Medicine 02/07/23 documented as of this encounter
--- OUTSIDE RECORDS SUMMARY | 2025-03-10 13:36 | XMS_ITS | Clinical Summary ---
Author Organization [employer] Address [address] [facility] 7t [place] [address] Care Team Providers Care Air Bag Buffer Name Role Phone Noelle Sargent MD Primary Care Provider [phone] Allergies Active Allergy Reactions Criticality Noted Date [...] Department Care Team Description 02/23/2025 Telephone [facility]ED[facility] [address] [place] [address] Noelle Sargent MD Results 02/22/2025 Refill [facility] MED & PEDS [address] [place] [address] Noelle Sargent MD 02/21/2025 11:00 AM EDT Office Visit [facility] MED [facility] PEDS [address] [place] [address] Diane Bush FNP Bronchitis (Primary Dx) 02/21/2025 Orders Only [facility]EDS [address] [place] [address] Diane Bush FNP 02/21/2025 Travel 02/21/[address] [place] [address] Noelle Sargent MD Nurse Triage 12/14/2024 Telephone [facility] CH[facility] MED & PEDS [address] [place] [address] Noelle Sargent MD from Last 3 Months [...] complication, without long-term current use of insulin ([facility]) HP LINK DIABETIC FOOT EXAM Routine 07/04/2023 COLOGUARD COLON CANCER SCREENING (EXTERNAL RESULTS ONLY) Routine 04/08/2023 2:35 PM EDT from Last 3 Months or Most Recently Relevant to Health Maintenance Results * POCT Rapid RSV WALLS ID NOW (02/21/2025 12:09 PM EDT) RSV Rapid Ag POC Negative Negative Comment:Internal kathe spencer ssed QC Media Lot # [id number] Lot# Expiration Date 422,025 Swab 02/21/2025 12:0 9 PM EDT us Diane Bush TRANSITIONAL LIVING SPECIALIST POINT OF CARE TEST ENTER/EDIT ORDERABLES Final Result * POCT Rapid Covid-19 BinaxNOW (02/21/2025 12:09 PM EDT) [facility] Rapid COVID Ag Negative Comment:Lana tannerd QC Media Lot # [id number] Lot# Expiration Date [id number] Blood 02/21/2025 12:0 9 PM EDT us Diane Bush TRANSITIONAL LIVING SPECIALIST POINT OF CARE TEST ENTER/EDIT ORDERABLES Final Result * POCT Rapid Influenza B OSOM (02/21/2025 12:07 PM EDT) [facility] Rapid Influenza B Ag Negative Negative, Indeterminate Comment:Lana archuleta ne cirod [employer] Media Lot # [id number] Lot# Expiration Date ,025 Swab 02/21/2025 12:0 7 PM EDT us Diane Bush TRANSITIONAL LIVING SPECIALIST POINT OF CARE TEST ENTER/EDIT ORDERABLES Final Result * POCT Rapid Influenza A OSOM (02/21/2025 12:01 PM EDT) [facility] Rapid Influenza A Ag Negative Negative, Indeterminate Comment:Lana archuleta ne cirod [employer] Media Lot # [id number] Lot# Expiration Date ,025 Swab Nasopharyngeal structure / Unknown 02/21/2025 12:01 PM EDT us Diane Bush TRANSITIONAL LIVING SPECIALIST POINT OF CARE TEST ENTER/EDIT ORDERABLES Final Result * Respiratory Viral Panel PCR (02/21/2025 11:45 AM EDT) [facility] Adenovirus PCR Not Detected Not Detect. [facility] Bordetella pertussis PCR Not Detected Not Detect. [facility] Comment:Interpret results wi th caution. If B. pertussis isspecifically suspected, additional testing using analternate method is recommended. Bordetella parapertussis PCR Not Detected Not Detect. [facility] Chlamydia pneumoniae PCR Not Detected Not Detect. [facility] Coronavirus 229E PCR Not Detected Not Detect. [facility] Coronavirus HKU1 PCR Not Detected Not Detect. [facility] Coronavirus NL63 PCR Not Detected Not Detect. [facility] Coronavirus OC43 PCR Not Detected Not Detect. [facility] SARS-CoV-2 PCR Not Detected Not Detect. [facility] Comment:SARS-CoV-2 not detec parveen by real-time RT-PCR.Note: If clinical suspicion for Sars-CoV-2 is high, continueto maintain precautions and consider repeat testing.Test results should be interpreted in the context ofclinical findings and other laboratory data.Rare polymorphisms exist that could lead to false-negativeor false-positive results. If results do not match theclinical findings, additional testing should be considered.Results reported to [facility].This test has been authorized by the FDA under the EmergencyUse Authorization (EUA) for use by authorized laboratories. Influenza A PCR Not Detected Not Detect. [facility] Influenza A Subtype H1 Not Detected Not Detect. [facility] Influenza A H1-2009 PCR Not Detected Not Detect. [facility] Influenza A Subtype H3 Not Detected Not Detect. [facility] Influenza B PCR Not Detected Not Detect. [facility] Human metapneumovirus PCR Not Detected Not Detect. [facility] Rhino/Enterovirus PCR Not Detected Not Detect. [facility] Mycoplasma pneumoniae PCR Not Detected Not Detect. [facility] Parainfluenza 1 PCR Not Detected Not Detect. [facility] Parainfluenza 2 PCR Not Detected Not Detect. [facility] Parainfluenza 3 PCR Not Detected Not Detect. [facility] Parainfluenza 4 PCR Not Detected Not Detect. [facility] RSV PCR Not Detected Not Detect. [facility] Resp Panel NA Note See Note H [facility] Comment:All results must be correlated with [...] assay is performed by Multiplexed PCR, utilizing [employer]. 02/21/2025 11:4 5 AM EDT 02/21/2025 6:02 PM EDT Diane Bush [facility] BLOOD ORDERABLES Final Res ult [facility] [address] [place] [phone] * (ABNORMAL) POCT HGB A1C (01/05/2024 [...] Most Recently Relevant to Health Maintenance [facility] Care Teams Air Bag Buffer Relationship Specialty Start Date End Date Noelle Sargent MD [address] [place] [phone] PCP - General Family Medicine 02/07/23
--- OUTSIDE RECORDS SUMMARY | 2025-03-10 13:36 | XMS_ITS | Encounter Summary ---
Author Organization [employer] Address [address] [place] [address] Care Team Providers Care Hvac Designer Name Role Phone Noelle Sargent MD Primary Care Provider [phone] Reason for Visit * Reason Onset Date Comments Appointment Request 11/25/2024 Encounter Details Date Type Department Care Team ([facility] st Contact Info) Description 11/25/2024 Telephone [facility] MED & PEDS [address] [place], [place] [phone] Noelle Sargent MD [address] [place] [address] Appointment Request Social History Tobacco Use Types [...] documented as of this encounter Care Teams Hvac Designer Relationship Specialty Start Date End Date Noelle Sargent MD [address] [place] [address] PCP - General Family Medicine 02/07/23 documented as of this encounter
--- OUTSIDE RECORDS SUMMARY | 2025-03-10 13:36 | XMS_ITS | Encounter Summary ---
Author Organization [employer] Address [address] [facility] [address]t [place] [address] Care Team Providers Care Gas Main Fitter Name Role Phone Noelle Sargent MD Primary Care Provider Reason for Visit * Reason Onset Date Comments Nurse Triage 02/21/2025 Encounter Details Date Type Department Care Team ([facility] st Contact Info) Description 02/21/2025 Telephone [facility] [address] [place] [address] Noelle Sargent MD [address] [place] [address] Nurse Triage Social History Tobacco Use Types [...] ASK apt Mallorie Bush today at 1100am. [facility]. Pt agrees with disposition and home [...] caller accepted this outcome. Contact pt at [phone] documented in this encounter Plan of Treatment Not on file documented as of this encounter Visit Diagnoses Not on filedocumented in this encounter Additional Health Concerns Assessment Noted Time PHQ-9 Depression Total Score: 0 03/07/20 1:43 PM EDT documented as of this encounter Care Teams Gas Main Fitter Relationship Specialty Start Date End Date Noelle Sargent MD [address] [place] [address] PCP - General Family Medicine 02/07/23 documented as of this encounter
== END 2025-03-09 11:06 | disposition home or self-care (01) ==
LOC: HO.HOSX 11:05
PROVIDERS: Visit Provider Orthopaedic Surgery
DX: T84.84XA Pain due to internal orthopedic prosthetic devices, implants and grafts, initial encounter (principal); Z96.651 Presence of right artificial knee joint
CPT/HCPCS: 73562

== ENCOUNTER 2025-11-07 13:30 | Outpatient (REF) | payer BC, SELFPAY ==
--- OUTSIDE RECORDS SUMMARY | 2025-11-02 14:30 | XMS_ITS | Encounter Summary ---
Author Organization [employer] Address [address] [place] [address] Care Team Providers Care Admission Nurse Coordinator Name Role Phone Noelle Sargent MD Primary Care Provider [phone] Reason for Visit * Reason Comments Pre-op Exam Encounter Details Date Type Department Care Team ([facility] Contact Info) Description 11/02/2025 2:30 PM EST Office Visit [facility] CHC MED & PEDS [address] [place], [place] [phone] Noelle Sargent MD [address] [place] [address] Essential hypertension (Primary Dx); Type 2 diabetes mellitus without complication, without long-term current use of insulin (HCC) Social History Tobacco Use Types Packs/Day Years [...] Sign Reading Time Taken Comments Blood Pressure 198/94 11/02/2025 3:53 PM EST Pulse 80 11/02/2025 3:00 PM EST Temperature 36.7 C (98.1 F) 11/02/2025 3:00 PM EST Respiratory Rate 18 11/02/2025 3:00 PM EST Oxygen Saturation 98% 11/02/2025 3:00 PM EST Inhaled Oxygen Concentration - - Weight 94.8 kg (209 lb) 11/02/2025 3:00 PM EST Height 162.6 cm (5' 4 ) 11/02/2025 3:00 PM EST Body Mass Index 35.87 11/02/2025 3:00 PM EST documented in this encounter Progress Notes * Noelle Sargent MD - 11/02/2025 2:30 PM EST Subjective Patient ID: Helene Trevizo is a 75 y.o. female who presents for Pre-op Exam. Helene Trevizo is a 75-year-old female who presents for pre-operative clearance for cataract surgery scheduled for December 02 on her right eye. She reports that she has not been taking her blood pressure medications, specifically amlodipine and irbesartan, because they were making her feel unwell. She states that the amlodipine was causing vertigo and dizziness, while she was tolerating the irbesartan that she takes at night. She acknowledges that her blood pressure is always high but reports feeling fine currently with no symptoms. She mentions that she had attempted to contact her physician about medication side effects but was unable to connect. The patient expresses interest in starting GLP-1 medications for weight loss. She reports that her diabetes management has been good, and she recently completed a mammogram at [facility]. She denies feeling sick or having any acute symptoms despite her elevated blood pressure readings. Medical History - Hypertension - Diabetes mellitus - Thyroid condition - Gastroesophageal reflux disease - History of knee pain Immunizations - COVID-19: Patient reports receiving COVID vaccination - Influenza: Patient reports receiving flu shot Review of Systems General: Negative for feeling sick. Neurological: Positive for vertigo/dizziness (related to previous medication). Review of Systems Constitutional: Negative for appetite change, fatigue and fever. HENT: Negative for congestion, postnasal drip and rhinorrhea. Eyes: Negative for discharge and redness. Respiratory: Negative for apnea, cough, chest tightness and shortness of breath. Cardiovascular: Negative for chest pain. Gastrointestinal: Negative for abdominal pain. Endocrine: Negative for polyphagia. Genitourinary: Negative for difficulty urinating, dysuria and urgency. Musculoskeletal: Negative for arthralgias. Neurological: Negative for dizziness, light-headedness, numbness and headaches. Hematological: Negative for adenopathy. Does not bruise/bleed easily. Objective BP (!) 206/106 (BP Location: Left arm, Patient Position: Sitting, BP Cuff Size: Adult) Pulse 80 Temp 98.1 ??F (36.7 ??C) (Oral) Resp 18 Ht 5' 4 (1.626 m) Wt 209 lb (94.8 kg) SpO2 98% BMI 35.87 kg/m?? Physical Exam Constitutional: General: She is not in acute distress. Appearance: She is obese. She is not ill-appearing. HENT: Head: Normocephalic and atraumatic. Nose: No congestion. Pulmonary: Effort: Pulmonary effort is normal. No respiratory distress. Breath sounds: Normal breath sounds. Musculoskeletal: Cervical back: Normal range of motion. Neurological: General: No focal deficit present. Mental Status: She is alert. Psychiatric: Mood and Affect: Mood normal. Assessment/Plan Problem List Items Addressed This Visit Essential hypertension - Primary Relevant Medications irbesartan (Avapro) 300 MG tablet cloNIDine (Catapres) tablet 0.1 mg Other Visit Diagnoses Type 2 diabetes mellitus without complication, without long-term current use of insulin (HCC) Relevant Medications irbesartan (Avapro) 300 MG tablet rosuvastatin (Crestor) 40 MG tablet glimepiride (Amaryl) 2 MG tablet Other Relevant Orders POCT A1c (Completed) POCT glucose manually resulted (Completed) CBC auto differential Comprehensive Metabolic Panel Lipid Panel, Standard TSH W/Reflex to FT4 Albumin, Random Urine W/Creatinine Helene Trevizo is a 75-year-old female with diabetes and hypertension presenting for pre-operativeclearance for cataract surgery with severely elevated blood pressure. Hypertensive crisis Assessment: Patient presents with severely elevated blood pressure measuring 206/110 mmHg, which decreased slightly but remained dangerously high. She discontinued her amlodipine due to vertigo side effects and has not been taking her antihypertensive medications consistently. Current blood pressure places her at significantly increased risk for stroke and heart attack. She reports feeling well despite the markedly elevated readings. Kidney function was normal on previous labs. This level of hypertension precludes safe surgical clearance for her scheduled cataract procedure. Plan: - Administer clonidine in office to acutely lower blood pressure - Continue irbesartan at nighttime dosing - Discontinue amlodipine due to vertigo side effects - Add diuretic if irbesartan alone insufficient for blood pressure control - Repeat comprehensive labs including lipid panel, TSH, and albumin - Monitor blood pressure closely until adequately controlled - Cannot provide surgical clearance until blood pressure normalized - Emergency department evaluation if severe headache, shortness of breath, or feeling very sick Pre-operative clearance for cataract surgery Assessment: Patient scheduled for right eye cataract surgery on December 02 with anesthesia. All parameters acceptable for surgical clearance except for severely elevated blood pressure, which poses significant perioperative cardiovascular risk. Plan: - Defer surgical clearance until blood pressure adequately controlled - Re-evaluate for clearance once hypertension managed Type 2 diabetes mellitus Assessment: Diabetes well-controlled with HbA1c of 6.7% and fasting glucose of 100 mg/dL, indicating good glycemic management. Plan: - Continue glimepiride 2 mg once daily - Refill prescription as needed Mammography follow-up Assessment: Patient completed mammography at [facility]. Results pending review. Plan: - Request mammography records from [facility] for review documented in this encounter Plan of Treatment Upcoming Encounters Date Type Department Care Team (Late st Contact Info) Description 11/14/2025 1:00 PM EST Office Visit [facility] CHC MED & PEDS [address] [place] [address] Noelle Sargent MD [address] [place] [address] documented as of this encounter Goals Goal Patient Goal Type Associated Problems Recent Progress Patient-Stated? Author Help patients manage their type 2 diabetes Care Plan Help patients manage their type 2 diabetes No Shannan Del Rio [place] Weekly blood pressure task Care Plan Weekly blood pressure task No Shannan Del Rio MA Help patients manage their type 2 diabetes Care Plan Help patients manage their type 2 diabetes No Shanann Del Rio [place] Patient has chronic kidney disease Care Plan Patient has chronic kidney disease No Shannan Del Rio MA Weekly blood pressure task Care Plan Weekly blood pressure task No Shannan Del Rio [place] Patient has chronic kidney disease Care Plan Patient has chronic kidney disease No Shannan Del Rio [place] Weekly blood pressure task Care Plan Weekly blood pressure task No Noelle Sargent MD Weekly blood pressure task Care Plan Weekly blood pressure task No Noelle Sargent MD Patient has chronic kidney disease Care Plan Patient has chronic kidney disease No Noelle Sargent MD Patient has chronic kidney disease Care Plan Patient has chronic kidney disease No Noelle Sargent MD documented as of this encounter Procedures Procedure Name Priority Date/Time Associated Diagnosis Comments ALBUMIN, RANDOM URINE W/CREATININE Routine 11/07/2025 1:38 PM EST Type 2 diabetes mellitus without complication, without long-term current use of insulin (HCC) TSH W/REFLEX TO FT4 Routine 11/07/2025 1 :32 PM EST Type 2 diabetes mellitus without complication, without long-term current use of insulin (HCC) CBC WITH AUTO DIFFERENTIAL Routine 11/07/2025 1:32 PM EST Type 2 diabetes mellitus without complication, without long-term current use of insulin (HCC) LIPID PANEL, STANDARD Routine 11/07/2025 1:32 PM EST Type 2 diabetes mellitus without complication, without long-term current use of insulin (HCC) COMPREHENSIVE METABOLIC PANEL Routine 11/07/2025 1:32 PM EST Type 2 diabetes mellitus without complication, without long-term current use of insulin (HCC) POCT GLYCATED HEMOGLOBIN, TOTAL Routine 11/02/2025 3:02 PM EST Type 2 diabetes mellitus without complication, without long-term current use of insulin (HCC) POCT GLUCOSE Routine 11/02/2025 3:02 PM EST Type 2 diabetes mellitus without complication, without long-term current use of insulin (HCC) documented in this encounter Results * Albumin, Random Urine W/Creatinine (11/07/2025 1:38 PM EST) Creatinine, Urine 218.62 mg/dL [facility] Microalbumin Urine 10.0 mg/L [facility] Microalbum Creatinine Ratio Ur 4.5 <30 ug/mg cr [facility] Comment:Albumin/Creatinine R atio Reference Ranges: Normal: < 30 ug/mg creatinine Microalbuminuria: 30 - 300 ug/mg creatinineClinical Albuminuria: > 300 ug/mg creatinine Urine (Urine, Random) 11/07/2025 1:38 PM EST 11/07/2025 2:37 PM EST Noelle Sargent MD LAB URINE ORDERABLES Final Re sult [facility] [address] [place] [phone] * (ABNORMAL) TSH W/Reflex to FT4 (11/07/2025 1:32 PM EST) TSH reflex Free T4 6.06(H) 0.32 - 4.0 uIU/mL [facility] Blood Venous blood specimen / Unknown 11/07/2025 1:32 PM EST 11/07/2025 2:26 PM EST us Noelle Sargent MD LAB BLOOD ORDERABLES Final Re sult Performing Organization Address [facility] Co de Phone Number [facility] [address] [place] [address] [phone] * (ABNORMAL) Lipid Panel, Standard (11/07/2025 1:32 PM EST) Triglycerides 113 <150 mg/dL [facility] Comment:Desirable Triglyceri de: less than 150 mg/dLBorderline High Triglyceride 150-199 mg/dLHigh Triglyceride: 200-499 mg/dLVery High Triglyceride: greater than or equal to 5OO mg/dL Cholesterol 228(H) <200 mg/dL [facility] Comment:Desirable Cholestero l: less than 200 mg/dLBorderline High Cholesterol: 200-239 mg/dLHigh Cholesterol: greater than 239 mg/dL LDL Cholesterol Calculated 154(H) <100 mg/dL [facility] Comment:Desirable LDL: less than 100 mg/dLNear Optimal/Above Optimal LDL: 110- 129 mg/dLBorderline High LDL: 130-159 mg/dLHigh LDL: 160-189 mg/dLVery High LDL: greater than or equal to 190 mg/dL HDL Cholesterol 52 >40 mg/dL [facility] Comment:Desirable HDL: great er than 40 mg/dL Note: This HDL assay may give artificially low results in patients with liver disease. Blood Venous blood specimen / Unknown 11/07/2025 1:32 PM EST 11/07/2025 2:26 PM EST us Noelle Sargent MD LAB BLOOD ORDERABLES Final Re sult Performing Organization Address [facility]/ZIP Co de Phone Number [facility] [address] [place] [address] [phone] * (ABNORMAL) Comprehensive Metabolic Panel (11/07/2025 1:32 PM EST) Sodium 141 135 - 145 mmol/L [facility] Potassium 3.1(L) 3.3 - 5.1 mmol/L [facility] Chloride 106 96 - 108 mmol/L [facility] Carbon Dioxide 29 22 - 29 mmol/L [facility] Anion Gap 9(L) 12 - 20 [facility] Urea Nitrogen (BUN) 10 9 - 16 mg/dL [facility] Creatinine, Serum 0.81 0.5 - 1.4 mg/dL [facility] Estimated Glomerular Filt Rate >60 [facility] Comment:Chronic Kidney Disea se: Estimated GFR < 60 mL/min/1.14p2Nezjrr Kidney Disease: Estimated GFR < 15 mL/min/1.73m2 Glucose 98 60 - 115 mg/dL [facility] Calcium 9.0 8.4 - 10.2 mg/dL [facility] Bilirubin, Total 0.4 0.0 - 1.0 mg/dL [facility] Aspartate Amino Transferase 18 5 - 31 U/L [facility] Alanine Aminotransferase 12 0 - 31 U/L [facility] Total Protein 7.4 6.5 - 8.0 g/dL [facility] Albumin Level 4.1 3.5 - 5.0 g/dL [facility] Alkaline Phosphatase 101 39 - 117 U/L [facility] Blood Venous blood specimen / Unknown 11/07/2025 1:32 PM EST 11/07/2025 2:26 PM EST us Noelle Sargent MD LAB BLOOD ORDERABLES Final Re sult [facility] [address] [place], [place] [phone] * (ABNORMAL) CBC auto differential (11/07/2025 1:32 PM EST) White Blood Count 6.2 4.8 - 10.8 X10*3/uL [facility] Red Blood Count 4.50 4.20 - 5.50 X10*6/uL [facility] Hemoglobin 12.6 12.0 - 16.0 g/dl [facility] Hematocrit 39.9 37.0 - 47.0 % [facility] Mean Corpuscular Volume 88.7 80.0 - 98.0 fL [facility] Mean Corpuscular Hemoglobin 28.0 27.0 - 33.0 pg [facility] Mean Corpuscular HGB Conc 31.6 31.0 - 35.0 g/dl [facility] Red Cell Distribution Width 13.6 11.0 - 16.0 % [facility] Platelet Count 244 160 - 400 X10*3/uL [facility] Mean Platelet Volume 11.3 9.4 - 12.3 fL [facility] Neutrophils Percent Auto 45.0 45 - 73 % [facility] Imm Gran Pct Auto 0.2 0.0 - 0.4 % [facility] Lymphocytes Percent Auto 45.4(H) 20 - 40 % [facility] Monocytes Percent Auto 6.3 2 - 11 % [facility] Eosinophils Percent Auto 2.3 0 - 4 % [facility] Basophils Percent Auto 0.8 0 - 2 % [facility] NRBC Pct Auto 0.0 0.0 - 0.2 /100WBC [facility] Neutrophils Absolute Auto 2.8 2.0 - 8.3 x10*3/uL [facility] Imm Gran Abs Auto 0.01 0.00 - 0.03 X10*3/uL [facility] Lymphocytes Absolute Auto 2.8 1.2 - 4.9 X10*3/uL [facility] Monocytes Absolute Auto 0.4 0.1 - 1.2 X10*3/uL [facility] Eosinophils Absolute Auto 0.1 0.0 - 0.4 X10*3/uL [facility] Basophils Absolute Auto 0.1 0.0 - 0.2 X10*3/uL [facility] NRBC Abs Auto 0.000 0.0 - 0.012 X10*3/uL [facility] Blood Venous blood specimen / Unknown 11/07/2025 1:32 PM EST 11/07/2025 2:26 PM EST us Noelle Sargent MD LAB BLOOD ORDERABLES Final Re sult [facility] [address] [place] [phone] * POCT glucose manually resulted (11/02/2025 3:02 PM EST) Glucose Blood, POC 100 60 - 200 mg/dL [employer] Lot # Comment:[id number] Lot# Expiration Date Comment:02/28/2026 Blood Capillary blood specimen / Unknown 11/02/2025 3:02 PM EST Noelle Sargent MD POINT OF CARE TEST ENTER/EDIT ORDERABLES Final Result * (ABNORMAL) POCT A1c (11/02/2025 3:02 PM EST) Hemoglobin A1C 6.7(A) 4.0 - 5.7 % [employer] Media Lot # Comment:[id number] Lot# Expiration Date Comment:10/28/2027 Blood 11/02/2025 3:02 PM EST Noelle Sargent MD POINT OF CARE TEST ENTER/EDIT ORDERABLES Final Result documented in this encounter Visit Diagnoses Diagnosis Essential hypertension- Primary Unspecified essential hypertension Type 2 diabetes mellitus without complication, without long-term current use of insulin (HCC) documented in this encounter Administered Medications Inactive Administered Medications - up to 3 most recent administrations Medication Order MAR Action Action Date Dose Rate Site cloNIDine (Catapres) tablet 0.1 mg 0.1 mg, Oral, Once, On Fri11/02/25 at 1515, For 1 doseIndications:Essential hypertension Given 11/02/2025 3:15 PM EST 0.1 mg documented in this encounter Additional Health Concerns Active Problems Noted Date Diagnosed Date Help patients manage their type 2 diabetes 11/01 Weekly blood pressure task 11/01/2025 Help patients manage their type 2 diabetes 11/01 Patient has chronic kidney disease 11/01/2025 Weekly blood pressure task 11/01/2025 Patient has chronic kidney disease 11/01/2025 Weekly blood pressure task 11/02/2025 Weekly blood pressure task 11/02/2025 Patient has chronic kidney disease 11/02/2025 Patient has chronic kidney disease 11/02/2025 Assessment Noted Time PHQ-9 Depression Total Score: 0 03/07/20 1:43 PM EDT documented as of this encounter Care Teams Admission Nurse Coordinator Relationship Specialty Start Date End Date Noelle Sargent MD [address] [place] [address] PCP - General Family Medicine 02/07/23 documented as of this encounter
--- OUTSIDE RECORDS SUMMARY | 2025-11-07 13:00 | XMS_ITS | Encounter Summary ---
Author Organization [employer] Address [address] [facility] 7[address] [place] [address] Care Team Providers Care Box Sorter Name Role Phone Noelle Sargent MD Primary Care Provider [phone] Reason for Visit * Reason Comments Hypertension Quick Followup Encounter Details Date Type Department Care Team ([facility] Contact Info) Description 11/07/2025 1:00 PM EST Office Visit [facility]EDS [address] [place] [address] Noelle Sargent MD [address] [place] [address] Essential hypertension (Primary Dx) Social History Tobacco Use Types Packs/Day Years Used Date Smoking Tobacco: Never Passive Smoke Exposure: Never Smokeless Tobacco: Never Alcohol Use Standard Drinks/Week Comments Yes 1 (1 standard drink = 0.6 oz pur e alcohol) Depression Answer Date Recorded Patient Health Questionnaire-9 Score 0 11/07/2025 Patient Health Questionnaire-9 Score 0 11/07/2025 Last PHQ-9: Questionnaire Data Not on file 1 01/08/2025 Housing Stability Answer Date Recorded What is your housing situation today? I have maine monte 11/07/[address] you li ve. Do you have problems with any of the following? None of the above 11/07/2025 Food Insecurity Answer Date Recorded Within the past 12 months, y ou worried that your food would run out before you got money to buy more: Never True 11/07/2025 Within the past 12 months,th e food you bought just didn't last and you didn't have enough money to get more: Never True Transportation Answer Date Recorded In the past 12 months, has l ack of transportation kept you from medical appts, meetings, work or from getting things needed for daily living? No 11/07/2025 Utilities Answer Date Recorded In the past 12 months, has t he electric, gas, oil or water company threatened to shut off services in your home? No 11/07/2025 Depression Answer Date Recorded Patient Health Questionnaire-2 Score 0 11/07/2025 Internet Access Answer Date Recorded Internet Access Q1 Yes 11/07/2025 Internet Access Q2 Not on file 11/07/2025 Comments Unknown Sex and Gender Information Value Date Recorded Sex Assigned at Female 02/07/2023 12:38 PM EDT Legal Sex Female 12:36 PM EDT Gender Identity Female 02/07/2023 12:38 PM EDT Sexual Orientation Straight 02/07/2023 12 :38 PM EDT documented as of this encounter Last Filed Vital Signs Vital Sign Reading Time Taken Comments Blood Pressure 166/78 11/07/2025 1:20 PM EST Pulse 78 11/07/2025 1:11 PM EST Temperature 36.6 C (97.9 F) 11/07/2025 1:11 PM EST Respiratory Rate 20 11/07/2025 1:11 PM EST Oxygen Saturation 97% 11/07/2025 1:11 PM EST Inhaled Oxygen Concentration - - Weight 94.9 kg (209 lb 3.2 oz) 11/07/2025 1:11 P M EST Height 162.6 cm (5' 4 ) 11/07/2025 1:11 PM EST Body Mass Index 35.91 11/07/2025 1:11 PM EST documented in this encounter Functional Status * Over the past 2 weeks, how often have you been bothered by any of the following problems? Question Answer Date of Assessment Author Patient Health Questionnaire-2 Score 0 10/24 1:13 PM EST Shannan Del Rio MA * Little interest or pleasure in doing things Answer Date of Assessment Author Not at all 11/07/2025 1:13 PM Shannan Fernandez MA * Feeling down, depressed, or hopeless Answer Date of Assessment Author Not at all 11/07/2025 1:13 PM Shannan Fernandez MA * Trouble falling or staying asleep, or sleeping too much Answer Date of Assessment Author Not at all 11/07/2025 1:13 PM Shannan Fernandez MA * Feeling tired or having little energy Answer Date of Assessment Author Not at all 11/07/2025 1:13 PM Shannan Fernandez MA * Poor appetite or overeating Answer Date of Assessment Author Not at all 11/07/2025 1:13 PM Shannan Fernandez MA * Feeling bad about yourself - or that you are a failure or have let yourself or your family down Answer Date of Assessment Author Not at all 11/07/2025 1:13 PM Shannan Fernandez MA * Trouble concentrating on things, such as reading the newspaper or watching television Answer Date of Assessment Author Not at all 11/07/2025 1:13 PM Shannan Fernandez MA * Moving or speaking so slowly that other people could have noticed? Or the opposite - being so fidgety or restless that you have been moving around a lot more than usual. Answer Date of Assessment Author Not at all 11/07/2025 1:13 PM Shannan Fernandez MA * Thoughts that you would be better off or hurting yourself in some way Answer Date of Assessment Author Not at all 11/07/2025 1:13 PM Shannan Fernandez MA * Patient Health Questionnaire-9 Score Answer Date of Assessment Author 0 11/07/2025 1:13 PM Shannan Fernandez MA documented as of this encounter Progress Notes * Noelle Sargent MD - 11/07/2025 1:00 PM EST Subjective Patient ID: Helene Trevizo is a 75 y.o. female who presents for Hypertension Quick Followup. Helene Trevizo is a female patient presenting for follow-up of hypertension. She reports taking her prescribed blood pressure medication, Irbesartan, daily and also takes a probiotic. She notes thather blood pressure readings at home are around 147, but when measured in the clinical setting, theyare significantly higher at 190-something, which she attributes to nervousness that causes her blood pressure to shoot up. During today's visit, her blood pressure was initially 198, then decreasedto 168 over 82, and later to 166 over 78, though still remaining elevated. The patient reports a history of adverse reactions to certain blood pressure medications, including feeling sick with amlodipine and having decreased potassium levels with chlorthalidone, to which she is allergic. She has not yet completed her laboratory work as planned. Review of Systems Constitutional: Negative for appetite [...] Does not bruise/bleed easily. Objective BP (!) 166/78 (BP Location: Right arm, Patient Position: Sitting, BP Cuff Size: Large adult) Pulse 78 Temp 97.9 ??F (36.6 ??C) (Oral) Resp 20 Ht 5' 4 (1.626 m) Wt 209 lb 3.2 oz (94.9 kg) SpO2 97% BMI 35.91 kg/m?? Physical Exam Constitutional: General: She is [...] Visit Essential hypertension - Primary Relevant Medications spironolactone (Aldactone) 25 MG tablet Helene Trevizo is a female patient with hypertension presenting with persistently elevated blood pressure readings despite current antihypertensive therapy. Hypertension Assessment: Patient has poorly controlled hypertension with current blood pressure readings of 198 mmHg systolic initially, improving to 166/78 mmHg during the visit but still elevated. Patient reports taking Irbesartan 300 mg daily as prescribed and notes home blood pressure readings around 147 mmHg, with higher readings in clinical settings attributed to white coat effect and anxiety. Previous medication trials include chlorthalidone which caused hypokalemia and patient allergy, and amlodipine which caused patient to feel sick. Current blood pressure remains elevated despite maximum dose Irbesartan therapy, indicating need for additional antihypertensive agent. Plan: - Start spironolactone 25 mg daily (may increase potassium levels rather than decrease like chlorthalidone) - If spironolactone insufficient, consider adding clonidine - Beta-keyshawn considered - Obtain laboratory studies when weather permits (patient unable to complete today due to snow) - Monitor blood pressure for one week to assess if adequate for upcoming surgery - Follow up November 14 at 1 PM documented in this encounter Plan of Treatment Upcoming Encounters Date Type Department Care Team (Late st Contact Info) Description 11/14/2025 1:00 PM EST Office Visit [facility] PEDS [address] [place] [address] Noelle Sargent MD [address] [place] [address] documented as of this encounter Goals Goal [...] 2 diabetes No Shannan Del Rio MA Patient has [...] chronic kidney disease No Noelle Sargent MD Weekly blood pressure task Care Plan Weekly blood pressure task No Shannan Del Rio MA Weekly blood pressure task Care Plan Weekly blood pressure task No Shannan Del Rio MA Patient has chronic kidney disease Care Plan Patient has chronic kidney disease No Shannan Del Rio MA Patient has [...] Sargent MD documented as of this encounter Visit Diagnoses Diagnosis Essential hypertension- Primary Unspecified essential hypertension documented in this encounter Additional Health Concerns [...] 11/02/2025 Patient has chronic kidney disease 11/02/2025 Weekly blood pressure task 11/07/2025 Weekly blood pressure task 11/07/2025 Patient has chronic kidney disease 11/07/2025 Patient has chronic kidney disease 11/07/2025 Weekly blood pressure task 11/07/2025 Weekly blood pressure task 11/07/2025 Patient has chronic kidney disease 11/07/2025 Patient has chronic kidney disease 11/07/2025 Assessment Noted Time PHQ-9 Depression Total Score: 0 11/07/20 25 1:13 PM EST documented as of this encounter Care Teams Box Sorter Relationship Specialty Start Date End Date Noelle Sargent MD [address] [place] [id number] PCP - General Family Medicine 02/07/23 documented as of this encounter
[2025-11-07 14:32] LABS: MANUAL DIFF FLAG NO
[2025-11-07 14:41] LABS: Hematocrit 39.9 % (37.0-47.0); Hemoglobin 12.6 g/dl (12.0-16.0); Imm Gran Abs Auto 0.01 X10*3/uL (0.00-0.03); Imm Gran Pct Auto 0.2 % (0.0-0.4); Lymphocytes Absolute Auto 2.8 X10*3/uL (1.2-4.9); Mean Corpuscular HGB Conc 31.6 g/dl (31.0-35.0); Mean Corpuscular Hemoglobin 28.0 pg (27.0-33.0); Mean Corpuscular Volume 88.7 fL (80.0-98.0); NRBC Abs Auto 0.000 X10*3/uL (0.0-0.012); NRBC Pct Auto 0.0 /100WBC (0.0-0.2); Platelet Count 244 X10*3/uL (160-400); Red Blood Count 4.50 X10*6/uL (4.20-5.50); White Blood Count 6.2 X10*3/uL (4.8-10.8)
[2025-11-07 15:06] LABS: Alanine Aminotransferase 12 U/L (0-31); Albumin Level 4.1 g/dL (3.5-5.0); Alkaline Phosphatase 101 U/L (39-117); Anion Gap 9 (12-20); Aspartate Amino Transferase 18 U/L (5-31); Blood Urea Nitrogen 10 mg/dL (9-16); Calcium 9.0 mg/dL (8.4-10.2); Carbon Dioxide 29 mmol/L (22-29); Chloride 106 mmol/L (96-108); Cholesterol 228 mg/dL (<200); Estimated Glomerular Filt Rate > 60; HDL Cholesterol 52 mg/dL (>40); Potassium 3.1 mmol/L (3.3-5.1); Sodium 141 mmol/L (135-145); Total Protein 7.4 g/dL (6.5-8.0); Triglycerides 113 mg/dL (<150)
[2025-11-07 15:43] LABS: Microalbum/Creatinine Ratio Ur 4.5 ug/mg cr (<30)
[2025-11-07 17:33] LABS: Free T4 (Free Thyroxine) 1.02 ng/dL (0.71-1.85)
--- OUTSIDE RECORDS SUMMARY | 2025-11-07 19:40 | XMS_ITS | Encounter Summary ---
Author Organization [employer] | [employer] Address [address] [facility] 7 [place] [address] Care Team Providers Care Inspecting Engineer Name Role Phone Noelle Sargent MD Primary Care Provider Reason for Visit * Reason Onset Date Comments Results 11/07/2025 Encounter Details Date Type Department Care Team ([facility] Contact Info) Description 11/07/2025 Results Follow-Up [facility] MED & PEDS [address] [place] [address] Noelle Sargent MD [address] [place] [address] POCT A1c, POCT glucose manually resulted, CBC auto differential, Additional followed-up results: 4 Social History Tobacco Use Types Packs/Day Years [...] PM EDT documented as of this encounter Functional Status * Over the past 2 weeks, how often have you been bothered by any of the following problems? Question Answer Date of Assessment Author Patient Health Questionnaire-2 Score 0 10/24 1:13 PM Shannan Fernandez MA * Little interest or pleasure in [...] Fernandez MA documented as of this encounter Miscellaneous Notes * Telephone Encounter - Sujata Crouch RN - 11/07/2025 4:44 PM EST TC to pt to review medication changes and results. No answer. VM left instructing pt to return callto respond via [employer] * Telephone Encounter - Sujata Crouch RN - 11/07/2025 4:44 PM EST ----- Message from Noelle Sargent MD sent at 11/07/2025 4:22 PM EST ----- [facility] Team! Can you please call Autumn Trevizo and inform about results? Potassium was low, will send supplementation and she was started on spirolactone, repeat bmp in 1 week. Cholesterol is elevated, along with LDL. TSH shows is uncontrolled, will need to adjust and will increase levothyroxine. Repeat levothyroxine in 6 weeks. Thanks! 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 Expected: 11/07/2025 (Approximate), Expires: 11/07/2026 documented as of this encounter Goals Goal [...] Plan Weekly blood pressure task No Shannan De lRio MA Patient has chronic kidney disease Care [...] as of this encounter Visit Diagnoses Diagnosis Hypokalemia- Primary Hypopotassemia 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
--- OUTSIDE RECORDS SUMMARY | 2025-11-07 19:40 | XMS_ITS | Encounter Summary ---
Author Organization [employer] Address [address] [facility] 7[address] [place] [address] Care Team Providers Care Thread Inspector Name Role Phone Noelle Sargent MD Primary Care Provider [phone] Encounter Details Date Type Department Care Team (Latest Contact Info) Description 11/07/2025 Travel Social History Tobacco Use Types Packs/Day [...] is your housing situation today? I have mainereinaldo monte 11/07/[address] you [...] Author Not at all 11/07/2025 1:13 PM EST Shannan Del Rio MA * Patient Health Questionnaire-9 Score Answer Date of Assessment Author 0 11/07/2025 1:13 PM EST Shannan Del Rio MA documented as of this encounter Plan of Treatment Upcoming Encounters Date Type Department Care Team (Late st Contact Info) Description 11/14/2025 1:00 PM EST Office Visit [facility] PEDS [address] [place] [address] Noelle Sargent MD [address] [place] [address] documented as of this encounter Goals Goal [...] Weekly blood pressure task No Shannan Del Roi MA Patient has chronic kidney disease Care [...] filedocumented in this encounter Additional Health Concerns Active [...] documented as of this encounter Care Teams Thread Inspector Relationship Specialty Start Date End Date Noelle Sargent MD [address] [place] [address] PCP - General Family Medicine 02/07/23 documented as of this encounter
--- OUTSIDE RECORDS SUMMARY | 2025-11-07 19:40 | XMS_ITS | Encounter Summary ---
Author Organization [employer] Address [address] [facility] 7t [place] [address] Care Team Providers Care Pattern Keeper Name Role Phone Noelle Sargent MD Primary Care Provider [phone] Encounter Details Date Type Department Care Team (Latest Contact Info) Description 11/02/2025 Travel Social History Tobacco Use Types Packs/Day [...] Upcoming Encounters Date Type Department Care Team ([facility] st Contact Info) Description 11/14/2025 1:00 PM EST Office Visit [facility] MED & PEDS [address] [place] [address] Noelle Sargent MD [address] [place] [address] documented as of this encounter Goals Goal [...] as of this encounter Care Teams Pattern Keeper Relationship Specialty Start Date End Date Noelle Sargent MD [address] [place] [address] PCP - General Family Medicine 02/07/23 documented as of this encounter
--- OUTSIDE RECORDS SUMMARY | 2025-11-07 19:40 | XMS_ITS | Encounter Summary ---
Author Organization [employer] Address [address] [facility] 7t [place] [address] Care Team Providers Care Superintendent Construction Name Role Phone Noelle Sargent MD Primary Care Provider [phone] Reason for Visit * Reason Onset Date Comments Appointment Request 11/25/2024 Encounter Details Date Type Department Care Team ([facility] Contact Info) Description 11/25/2024 Telephone [facility] MED & PEDS [address] [place], [place] [id number] Noelle Sargent MD [address] [place] [address] Appointment Request Social History Tobacco Use Types [...] Description 11/14/2025 1:00 PM EST Office Visit [facility] MED [facility] PEDS [address] [place] [address] Noelle Sargent MD [address] [place] [address] documented as of this encounter Visit Diagnoses Not on filedocumented in this encounter Additional Health Concerns Assessment Noted Time PHQ-9 Depression Total Score: 0 03/07/20 1:43 PM EDT documented as of this encounter Care Teams Superintendent Construction Relationship Specialty Start Date End Date Noelle Sargent MD [address] [place] [address] PCP - General Family Medicine 02/07/23 documented as of this encounter
--- OUTSIDE RECORDS SUMMARY | 2025-11-07 19:40 | XMS_ITS | Encounter Summary ---
Author Organization [employer] Address [address] [facility] 7[address] [place] [address] Care Team Providers Care Central Office Supervisor Name Role Phone Noelle Sargent MD Primary Care Provider [phone] Reason for Visit * Reason Onset Date Comments Nurse Triage 02/21/2025 Encounter Details Date Type Department Care Team ([facility] Contact Info) Description 02/21/2025 Telephone [facility] [address] [place] [address] Noelle Sargent MD [address] [place] [address] Nurse Triage Social History Tobacco Use Types [...] ASK apt Mallorie Bush today at 1100am. [facility]. Pt agrees with disposition and home [...] caller accepted this outcome. Contact pt at [phone] documented in this encounter Plan of Treatment Upcoming Encounters Date Type Department Care Team (Late st Contact Info) Description 11/14/2025 1:00 PM EST Office Visit [facility] MED [facility] PEDS [address] [place] [address] Noelle Sargent MD [address] [place] [address] documented as of this encounter Visit Diagnoses Not on filedocumented in this encounter Additional Health Concerns Assessment Noted Time PHQ-9 Depression Total Score: 0 03/07/20 23 1:43 PM EDT documented as of this encounter Care Teams Central Office Supervisor Relationship Specialty Start Date End Date Noelle Sargent MD [address] [place] [address] PCP - General Family Medicine 02/07/23 documented as of this encounter
--- OUTSIDE RECORDS SUMMARY | 2025-11-07 19:41 | XMS_ITS | Clinical Summary ---
Author Organization [employer] Address [address] [facility] 7[address] [place] [address] Care Team Providers Care After School Program Teacher Name Role Phone Noelle Sargent MD Primary Care Provider [phone] Allergies Active Allergy Reactions Criticality Noted Date Comments Chlorthalidone Other 10/21/2023 Severe hypoK with chlorthalidone Codeine Hives High 03/07/2023 Erythromycin Hives,Itching 03/07/2023 Erythromycin Base Hives High 01/15/2024 Hydrocodone Hives High 01/16/2024 Latex High 01/16/2024 Other Reaction(s): dermatitis flare-ups Medications FREESTYLE LITE test strip Use 2x/dayUse [...] 25 doses. 50 tablet 02/26/20 23 Active albuterol 108 (90 Base) MCG/ACT inhalerIndicati ons:Bronchitis Inhale 2 puffs Every 4-6 hours as needed for wheezing or shortness of breath. 18 g 02/22/20 25 026 Active pantoprazole (ProtoNix) 40 MG EC tablet TAKE ONE TABLET BY MOUTH EVERY DAY BEFORE BREAKFAST 90 tablet 1 07/28/20 25 Active ketorolac (Acular) 0.5 % ophthalmic solution 10/26/20 25 Active irbesartan (Avapro) 300 MG tablet Take 1 tablet (300 mg) by mouth at bedtime. 90 tablet 1 11/02/20 25 Active rosuvastatin (Crestor) 40 MG tablet Take 1 tablet (40 mg) by mouth Once per day. 90 tablet 1 11/02/20 25 Active glimepiride (Amaryl) 2 MG tablet Take 1 tablet (2 mg) by mouth before breakfast. 90 tablet 1 11/02/20 25 Active spironolactone (Aldactone) 25 MG tablet Take 1 tablet (25 mg) by mouth Once per day. 30 tablet 1 11/07/20 25 Active potassium chloride CR (Klor-Con M20) 20 MEQ ER tabletIndicatio ns:Hypokalemia Take 1 tablet (20 mEq) by mouth Once per day. Do not crush or chew. 7 tablet 11/07/20 25 Active levothyroxine (Synthroid) 125 MCG tablet Take 1 tablet (125 mcg) by mouth before breakfast. 30 tablet 2 11/07/20 25 Active irbesartan (Avapro) 300 MG tablet Take 1 tablet (300 mg) by mouth at bedtime. 90 tablet 1 07/04/20 23 025 Discontinued(R eorder (will not trigger notification to Pharmacy)) rosuvastatin (Crestor) 40 MG tablet Take 1 tablet (40 mg) by mouth in the morning. 90 tablet 1 07/04/20 025 Discontinued(R eorder (will not trigger notification to Pharmacy)) celecoxib (CeleBREX) 200 MG capsule TAKE 1 CAPSULE BY MOUTH TWICE A DAY 180 capsule 1 05/03/20 24 025 Discontinued(T herapy completed) amLODIPine (Norvasc) 10 MG tablet TAKE 1 TABLET BY MOUTH EVERY MORNING 90 tablet 1 11/26/19 25 025 Discontinued(S blanche effects) citalopram (CeleXA) 10 MG tablet TAKE 1 TABLET BY MOUTH IN THE MORNING 90 tablet 1 02/23/20 25 025 Discontinued(T herapy completed) glimepiride (Amaryl) 2 MG tablet TAKE 1 TABLET BY MOUTH BEFORE BREAKFAST 90 tablet 1 05/23/20 25 025 Discontinued(R eorder (will not trigger notification to Pharmacy)) levothyroxine (Synthroid, Levoxyl) 100 MCG tablet TAKE ONE TABLET BY MOUTH EVERY DAY BEFORE BREAKFAST 90 tablet 1 10/02/20 25 025 Discontinued(I neffective) hydroCHLOROthia zide (HYDRODiuril) 25 MG tabletIndicatio ns:Essential hypertension Take 1 tablet (25 mg) by mouth Once per day. 30 tablet 11 11/07/20 25 025 Discontinued(T herapy completed) Hospital, Clinic, or Other Facility Administered Medication Ordered Dose Route Frequency Start Date End Date Status cloNIDine (Catapres) tablet 0.1 mgIndications:Essential hypertension 0.1 mg PO Once 11/02/2025 11/02/2025 Ended Active Problems Problem Noted Date Diagnosed Date [...] cancer screening by mammogram 03/07/2023 Arthritis of right knee 03/07/2023 Assessment & Plan (03/07/2023 2:13 PM EDT): Patient with chronic knee pain. Will send for x-ray of bilateral knees. Essential hypertension 02/25/2023 Assessment & Plan (10/21/2023 4:33 PM [...] improvement consider spirolactone. Type 2 diabetes mellitus with unspecified compli cations 02/25/2023 Assessment & Plan (10/21/2023 4:32 PM [...] Encounters Date Type Department Care Team Description 11/07/2025 1:00 PM EST Office Visit [facility] [address] [place] [address] Noelle Sargent MD Essential hypertension (Primary Dx) 11/07/2025 Results Follow-Up [facility] [address] [place] [address] Noelle Sargent MD POCT A1c, POCT glucose manually resulted, CBC auto differential, Additional followed-up results: 4 11/07/2025 Travel 11/02/2025 2:30 PM EST Office Visit [facility] [address] [place] [address] Noelle Sargent MD Essential hypertension (Primary Dx); Type 2 diabetes mellitus without complication, without long-term current use of insulin (HCC) 11/02/2025 Travel 11/01/2025 Telephone [facility] [address] [place] [address] Noelle Sargent MD chart prep 10/03/2025 Telephone [facility] [address] [place] [address] Noelle Sargent MD Medication Question 09/20/2025 Telephone [facility] [address] [place] [address] Noelle Sargent MD pre op 08/25/2025 Refill [facility] [address] [place] [address] Noelle Sargent MD from Last 3 Months Immunizations Immunization Administration Dates Next Due Influenza injectable quadrivalent preservative f ree 08/15/2023 Influenza, High Dose Seasonal, Preservative Free 08/17/2025,10/09/2024 Pneumococcal Conjugate PCV 20 08/17/2025, 023 Social History Tobacco Use Types Packs/Day Years [...] Mass Index 35.91 11/07/2025 1:11 PM EST Plan of Treatment Upcoming Encounters Date Type Department Care Team (Late st Contact Info) Description 11/14/2025 1:00 PM EST Office Visit [facility] [address] [place] [address] Noelle Sargent MD [address] [place] [address] Health Maintenance Due Date Last Done Comments CT Colonography 1951 Colonoscopy 1951 FIT 1951 Sigmoidoscopy 1951 Eye Exam 1961 Alcohol/Substance Use Screening 1963 Hepatitis C Screening 1969 DTaP/Tdap/Td Vaccines (1 - Tdap) 1970 Mammogram 1991 Zoster Vaccines (1 of 2) 2001 FOBT 03/18/2024 03/18/2023 Diabetes: Foot Exam 07/04/2024 07/04/2023 COVID-19 Vaccine (3 - season) 2026 08/17/2025, 10/09/2024 Colorectal Cancer Screening 04/08/2026 FIT DNA/Cologuard 04/08/2026 04/08/2023, 03/18/2023 Diabetes: Hemoglobin A1C 05/03/2026 025, 01/05/2024, 10/21/2023, Additional history exists RSV Patients and Patients Aged 60 years or older (1 - 1-dose 75+ series) 2026 Depression Screening 11/07/2026 11/07/2025, 11/07/20 Diabetes: Urine Protein Screening 11/07/2026 11/07/2025 Lipid Panel 11/07/2026 11/07/2025 SDOH Screening 11/07/2026 11/07/2025 Tobacco Screening 11/07/2026 11/07/2025 Influenza Vaccine Completed 08/17/2025, , 08/15/2023 Pneumococcal Vaccine: 50+ Years Completed 08/17/2025, 07/04/2023 HIB Vaccines Aged Out No longer eligi [...] patient's age to complete this topic Meningococcal B Vaccine Aged Out No l onger eligible based on patient's age to complete this topic Meningococcal Vaccine Aged Out No esau jefesron eligible based on patient's age to complete this topic RSV under 20 months Aged Out No longe r eligible based on patient's age to complete this topic Rotavirus Vaccines Aged Out No longer eligible based on patient's age to complete this topic Goals Goal Patient Goal Type Associated Problems [...] chronic kidney disease No Noelle Sargent MD Procedures Procedure Name Priority Date/Time Associated Diagnosis Comments ALBUMIN, RANDOM URINE W/CREATININE Routine 11/07/2025 1:38 PM EST Type 2 diabetes mellitus without complication, without long-term current use of insulin (HCC) T4, FREE Routine 11/07/2025 1:32 PM EST TSH W/REFLEX TO FT4 Routine 11/07/2025 1 [...] without long-term current use of insulin (HCC) HP LINK DIABETIC FOOT EXAM Routine 07/04/2023 COLOGUARD COLON CANCER SCREENING (EXTERNAL RESULTS ONLY) Routine 04/08/2023 2:35 PM EDT LAB COLOGUARD COLON CANCER SCREEN Routine 03/18/2023 from Last 3 Months or Most Recently Relevant to Health Maintenance Results * Albumin, Random Urine W/Creatinine (11/07/2025 1:38 PM EST) Creatinine, Urine 218.62 mg/dL [facility] Microalbumin Urine 10.0 mg/L [facility] Microalbum Creatinine Ratio Ur 4.5 <30 ug/mg cr [facility] Comment:Albumin/Creatinine R atio Reference Ranges: Normal: < 30 ug/mg creatinine Microalbuminuria: 30 - 300 ug/mg creatinineClinical Albuminuria: > 300 ug/mg creatinine Urine (Urine, Random) 11/07/2025 1:38 PM EST 11/07/2025 2:37 PM EST us Noelle Sargent MD LAB URINE ORDERABLES Final Re sult [facility] [address] [place] [phone] * (ABNORMAL) TSH W/Reflex to FT4 (11/07/2025 1:32 PM EST) TSH reflex Free T4 6.06(H) 0.32 - 4.0 uIU/mL [facility] Blood Venous blood specimen / Unknown 11/07/2025 1:32 PM EST 11/07/2025 2:26 PM EST us Noelle Sargent MD LAB BLOOD ORDERABLES Final Re sult [facility] [address], [place] [phone] * (ABNORMAL) CBC auto differential (11/07/2025 1:32 PM EST) White Blood Count 6.2 4.8 - 10.8 X10*3/uL [facility] Red Blood Count 4.50 4.20 - 5.50 X10*6/uL [facility] Hemoglobin 12.6 12.0 - 16.0 g/dl [facility] Hematocrit 39.9 37.0 - 47.0 % [facility] Mean Corpuscular Volume 88.7 80.0 - 98.0 fL [facility] Mean Corpuscular Hemoglobin 28.0 27.0 - 33.0 pg [facility] Mean Corpuscular HGB Conc 31.6 31.0 - 35.0 g/dl [facility] Red Cell Distribution Width 13.6 11.0 - 16.0 % [facility] Platelet Count 244 160 - 400 X10*3/uL [facility] Mean Platelet Volume 11.3 9.4 - 12.3 fL [facility] Neutrophils Percent Auto 45.0 45 - 73 % [facility] Imm Gran Pct Auto 0.2 0.0 - 0.4 % [facility] Lymphocytes Percent Auto 45.4(H) 20 - 40 % [facility] Monocytes Percent Auto 6.3 2 - 11 % [facility] Eosinophils Percent Auto 2.3 0 - 4 % [facility] Basophils Percent Auto 0.8 0 - 2 % [facility] NRBC Pct Auto 0.0 0.0 - 0.2 /100WBC [facility] Neutrophils Absolute Auto 2.8 2.0 - 8.3 x10*3/uL [facility] Imm Gran Abs Auto 0.01 0.00 - 0.03 X10*3/uL [facility] Lymphocytes Absolute Auto 2.8 1.2 - 4.9 X10*3/uL [facility] Monocytes Absolute Auto 0.4 0.1 - 1.2 X10*3/uL [facility] Eosinophils Absolute Auto 0.1 0.0 - 0.4 X10*3/uL [facility] Basophils Absolute Auto 0.1 0.0 - 0.2 X10*3/uL [facility] NRBC Abs Auto 0.000 0.0 - 0.012 X10*3/uL [facility] Blood Venous blood specimen / Unknown 11/07/2025 1:32 PM EST 11/07/2025 2:26 PM EST Noelle Sargent MD LAB BLOOD ORDERABLES Final Re sult Performing Organization Address City/[facility]/ZIP Co de Phone Number [facility] [address] [place] [phone] * T4, Free (11/07/2025 1:32 PM EST) Free T4 (Free Thyroxine) 1.02 0.71 - 1.85 ng/dL [facility] 11/07/2025 1:32 PM EST 11/07/2025 2:26 PM EST Noelle Sargent MD LAB BLOOD ORDERABLES Final Re sult Performing Organization Address City/[facility]/ZIP Co de Phone Number [facility] [address] [place] [phone] * (ABNORMAL) Lipid Panel, Standard (11/07/2025 1:32 PM EST) Triglycerides 113 <150 mg/dL [facility] Comment:Desirable Triglyceri de: less than 150 mg/dLBorderline High Triglyceride 150-199 mg/dLHigh Triglyceride: 200-499 mg/dLVery High Triglyceride: greater than or equal to 5OO mg/dL Cholesterol 228(H) <200 mg/dL [facility] Comment:Desirable Cholestero l: less than 200 mg/dLBorderline High Cholesterol: 200-239 mg/dLHigh Cholesterol: greater than 239 mg/dL LDL Cholesterol Calculated 154(H) <100 mg/dL [facility] Comment:Desirable LDL: less than 100 mg/dLNear Optimal/Above Optimal LDL: 110- 129 mg/dLBorderline High LDL: 130-159 mg/dLHigh LDL: 160-189 mg/dLVery High LDL: greater than or equal to 190 mg/dL HDL Cholesterol 52 >40 mg/dL [facility] Comment:Desirable HDL: great er than 40 mg/dL Note: This HDL assay may give artificially low results in patients with liver disease. Blood Venous blood specimen / Unknown 11/07/2025 1:32 PM EST 11/07/2025 2:26 PM EST us Noelle Sargent MD LAB BLOOD ORDERABLES Final Re sult [facility] [address], [place] [phone] * (ABNORMAL) Comprehensive Metabolic Panel (11/07/2025 1:32 PM EST) Sodium 141 135 - 145 mmol/L [facility] Potassium 3.1(L) 3.3 - 5.1 mmol/L [facility] Chloride 106 96 - 108 mmol/L [facility] Carbon Dioxide 29 22 - 29 mmol/L [facility] Anion Gap 9(L) 12 - 20 [facility] Urea Nitrogen (BUN) 10 9 - 16 mg/dL [facility] Creatinine, Serum 0.81 0.5 - 1.4 mg/dL [facility] Estimated Glomerular Filt Rate >60 [facility] Comment:Chronic Kidney Disea se: Estimated GFR < 60 mL/min/1.75h2Mafylz Kidney Disease: Estimated GFR < 15 mL/min/1.73m2 Glucose 98 60 - 115 mg/dL [facility] Calcium 9.0 8.4 - 10.2 mg/dL [facility] Bilirubin, Total 0.4 0.0 - 1.0 mg/dL [facility] Aspartate Amino Transferase 18 5 - 31 U/L [facility] Alanine Aminotransferase 12 0 - 31 U/L [facility] Total Protein 7.4 6.5 - 8.0 g/dL [facility] Albumin Level 4.1 3.5 - 5.0 g/dL [facility] Alkaline Phosphatase 101 39 - 117 U/L [facility] Blood Venous blood specimen / Unknown 11/07/2025 1:32 PM EST 11/07/2025 2:26 PM EST us Noelle Sargent MD LAB BLOOD ORDERABLES Final Re sult [facility] [address] [place] [phone] * (ABNORMAL) POCT A1c (11/02/2025 3:02 PM EST) Hemoglobin A1C 6.7(A) 4.0 - 5.7 % QC Media Lot # Comment:[id number] Lot# Expiration Date Comment:10/28/2027 Blood 11/02/2025 3:02 PM EST us Noelle Sargent MD POINT OF CARE TEST ENTER/EDIT ORDERABLES Final Result * POCT glucose manually resulted (11/02/2025 3:02 PM EST) Glucose Blood, POC 100 60 - 200 mg/dL QC Media Lot # Comment:[id number] Lot# Expiration Date Comment:02/28/2026 Blood Capillary blood specimen / Unknown 11/02/2025 3:02 PM EST us Noelle Sargent MD POINT OF CARE TEST ENTER/EDIT ORDERABLES Final Result * HP Diabetic Foot Exam (07/04/2023) Narrative Noelle Sargent MD - 07/04/2023 Diabetic Foot Exam Inspection: Dryness on skin and heel Slightly flat footed. Ulcers: not observed Calluses: between 4th and 5th metatarsals on L foot Edema: anterior mahan pitting edema bilaterally Onychomycosis: not observed Tinea pedis: not observed Charcot foot or other deformities: not observed Erythema: not observed Monofilament Foot Exam: normal Right Foot : Great toe Normal 1st MT Normal 3rd MT Normal 5th MT Normal Heel Normal with dryness mild edema on anterior mahan . Left Foot Great toe Normal 1st MT Normal 3rd MT Normal 5th MT Normal Heel Normal callus between 4th and 5th metatarsal dryness anterior mahan pitting edema Vibration: Right foot: normal > 8 seconds Left foot: normal > 8 seconds Pedal Pulses: -Right dorsalis pedis: diminished pulses on R anterior -Right posterior tibialis: present +2 -Left dorsalis pedis: normal +2 -Left posterior tibialis: present normal +2 Neurological: Mental Status: She is alert and oriented to person, place, and time. Psychiatric: Mood and Affect: Mood normal. Behavior: Behavior normal. Result [facility] Noelle Sargent MD HEALTH MAINTENANCE Final Resu lt * Cologuard Colon Cancer Screening (04/08/2023 2:35 PM EDT) Pathologist [facility] Cologuard Cancer Screen Negative Comment:Neg, rpt in 2 yrs Stool 04/08/2023 2:35 PM EDT Narrative Noelle Sargent MD - 04/08/2023 2:35 PM EDT Negative rpt in 2 yrs Result [facility] Noelle Sargent MD POINT OF CARE TEST ENTER/EDIT ORDERABLES Final Result * Cologuard?? colon cancer screening (03/18/2023) Pathologist [facility] Cologuard Cancer Screen Negative Stool 03/18/2023 Result [facility] Noelle Sargent MD LAB MOLECULAR DIAGNOSTICS ORD ERABLES Final Result from Last 3 Months or Most Recently Relevant to Health Maintenance Additional Health Concerns Active Problems Noted Date [...] 11/07/2025 Patient has chronic kidney disease 11/07/[address] [phone] [facility] [employer] Care Teams After School Program Teacher Relationship Specialty Start Date End Date Noelle Sargent MD [address] [place] [phone] PCP - General Family Medicine 02/07/23
--- OUTSIDE RECORDS SUMMARY | 2025-11-07 19:41 | XMS_ITS | Encounter Summary ---
Author Organization [employer] Address [address] [facility] 7 [place] [address] Care Team Providers Care Public Speaker Name Role Phone Noelle Sargent MD Primary Care Provider [phone] Reason for Visit * Reason Comments Med Refill Encounter Details Date Type Department Care Team ([facility] Contact Info) Description 06/25/2023 Refill [facility] [address] [place] [address] Aline Aaron MD [address] [place] [address] Social History Tobacco Use Types Packs/Day Years [...] Description 11/14/2025 1:00 PM EST Office Visit [facility] [address] [place] [address] Noelle Sargent MD [address] [place] [address] documented as of this encounter Visit Diagnoses Not on filedocumented in this encounter Additional Health Concerns Assessment Noted Time PHQ-9 Depression Total Score: 0 03/07/20 1:43 PM EDT documented as of this encounter Care Teams Public Speaker Relationship Specialty Start Date End Date Noelle Sargent MD [address] [place] [phone] PCP - General Family Medicine 02/07/23 documented as of this encounter
--- OUTSIDE RECORDS SUMMARY | 2025-11-07 19:41 | XMS_ITS | Encounter Summary ---
Author Organization [employer] Address [address] [facility] [address] [place] [address] Care Team Providers Care Admissions Rn Name Role Phone Noelle Sargent MD Primary Care Provider [phone] Reason for Visit * Reason Comments Med Refill Encounter Details Date Type Department Care Team ([facility] Contact Info) Description 06/20/2023 Refill [facility] [address] [place] [address] Aline Aaron MD [address] [place] [address] Social History Tobacco Use Types Packs/Day Years [...] Description 11/14/2025 1:00 PM EST Office Visit [facility] [address] [place] [address] Noelle Sargent MD [address] [place] [address] documented as of this encounter Visit Diagnoses Not on filedocumented in this encounter Additional Health Concerns Assessment Noted Time PHQ-9 Depression Total Score: 0 03/07/20 1:43 PM EDT documented as of this encounter Care Teams Admissions Rn Relationship Specialty Start Date End Date Noelle Sargent MD [address] [place] [phone] PCP - General Family Medicine 02/07/23 documented as of this encounter
--- OUTSIDE RECORDS SUMMARY | 2025-11-07 19:41 | XMS_ITS | Clinical Summary ---
Author Organization [facility] Address [address] [place] [address] Phone Care Team Providers Care Energy Specialist Name Role Phone Unavailable Primary Care Provider Unavailabl e Social History Tobacco Use Types Packs/Day Years Used Date Smoking Tobacco: Never Assessed Education Answer Date Recorded Are you interested in more education? Not on elle e 01/27/2024 Are you concerned about learning? Not on file 01/27/2024 No 01/27/2024 No 01/27/2024 Digital Access Answer Date Recorded No 01/27/2024 No 01/27/2024 Reliable internet access at home? Not on file 01/27/2024 Device with a working camera? Not on file Comments Unknown Sex and Gender Information Value Date Recorded Sex Assigned at Not on file Legal Sex Female 9:02 AM EST Gender Identity Not on file Sexual Orientation Not on file Plan of Treatment Not on file Medical Devices Not on file Additional Source Comments The information contained in this document represents components of the legal health record. It is not the complete legal health record.[facility]
== END 2025-11-07 13:31 | disposition home or self-care (01) ==
LOC: HO.CHCLDS 13:30
PROVIDERS: Visit Provider Family Medicine
DX: E11.9 Type 2 diabetes mellitus without complications (principal); E06.3 Autoimmune thyroiditis; E87.6 Hypokalemia
CPT/HCPCS: 36415; 80053; 80061; 82043; 82570; 84439; 84443; 85025